=== PATIENT | female | born 1935 | race Caucasian/White ===

== ENCOUNTER 2018-04-28 14:06 | Inpatient (IN) | payer MEDICARE, OTHER ==
[2018-04-28] VITALS (7 sets, daily range): BP systolic 93–135; BP diastolic 56–117; PULSE 76–103; RESP 16–20; TEMP 97.2–99.6; O2SAT 94–99
[~2018-04-28] VITALS: Ht 152.4 cm; Wt 61.5 kg
[~2018-04-28 14:06] MED LIST: ACET1CAP18 PO; ALLO100T PO; ASPI81TA81 PO; LATA0.002 EACH EYE; METO25TA3 PO; NITR0.4S SL; SIMV40TA PO; TRIA37.5 PO
[2018-04-28] MEDS ORDERED: ULOR40TA PO (15:49)
[2018-04-28] MEDS ORDERED: ALPH0.1S EACH EYE (15:49)
[2018-04-28] MEDS ORDERED: BRIM.15%O EACH EYE (15:49)
[2018-04-28] MEDS ORDERED: TRAM50TA PO (15:49)
--- NOTE | 2018-04-28 16:37 | PD ---
HPI Chief Complaint: GI Complaint Time Seen by Provider: 16:32 Travel History International Travel<30 days: No Contact w/Intl Traveler<30days: No Traveled to known affect area: No History of Present Illness HPI This 82-year-old female is complaining of diarrhea and nausea. She had a hip replacement on February 03. Apparently she developed C. difficile afterwards. She has seen several different doctors and has been on Flagyl. She is not sure if she has been on any other medication. She has some crampy abdominal pain. She has been nauseated. She is here with her daughter says that she has not been eating well. Patient was apparently in fairly good health. She has no history of heart disease. She says she has had no appetite. She says she is having diarrhea every hour. PFSH Past Medical History Arthritis: Yes Cardiovascular Problems: Yes High Cholesterol: Yes Diminished Hearing: No Glaucoma: Yes Gout: Yes Hypertension: Yes Past Surgical History Other Surgery: No Social History Alcohol Use: No Tobacco Use: No Substance Use: No Allergies-Medications (Allergen,Severity, Reaction): Coded Allergies: penicillin G (Unverified Allergy, Severe, SWELLING, 04/28/18) Reported Meds & Prescriptions Reported Meds & Active Scripts Active Reported Uloric (Febuxostat) 40 Mg Tab 1 Mg PO DAILY Tramadol (Tramadol HCl) 50 Mg Tab 50 Mg PO Q12H PRN Alphagan P Opth Drops (Brimonidine Tartrate) 0.15% Soln 1 Drop EACH EYE TID Triamterene-Hydrochlorothiazide 37.5-25 Mg Tab 1 Tab PO DAILY Simvastatin 40 Mg Tab 40 Mg PO HS Metoprolol Tartrate 25 Mg Tab 25 Mg PO DAILY Latanoprost Opth Drops (Latanoprost) 0.005% Drops 1 Drop EACH EYE BID Refrigerate until opened. Aspir-81 (Aspirin) 81 Mg Tabdr 1 Tab PO DAILY Review of Systems Except as stated in HPI: all other systems reviewed are Neg General / Constitutional: No: Fever, Chills Eyes: No: Diploplia, Blurred Vision HENT: Positive: Lightheadedness, No: Headaches Cardiovascular: No: Chest Pain or Discomfort, Palpitations Respiratory: No: Cough, Shortness of Breath Gastrointestinal: Positive: Nausea, Vomiting, Diarrhea, Abdominal Pain Genitourinary: No: Urgency, Frequency Musculoskeletal: No: Myalgias, Arthralgias Skin: No Rash Neurologic: Positive: Weakness, Dizziness Psychiatric: No: Anxiety Hematologic/Lymphatic: Positive: Easy Bruising Physical Exam Narrative GENERAL: Frail elderly female. SKIN: Focused skin assessment warm/dry. Multiple areas of senile purpura HEAD: Atraumatic. Normocephalic. EYES: Pupils equal and round. No scleral icterus. No injection or drainage. ENT: No nasal bleeding or discharge. Mucous membranes dry NECK: Trachea midline. No JVD. CARDIOVASCULAR: Rapid regular rate and rhythm. No murmur appreciated. RESPIRATORY: No accessory muscle use. Clear to auscultation. Breath sounds equal bilaterally. GASTROINTESTINAL: Abdomen soft, non-tender, nondistended. Hepatic and splenic margins not palpable. MUSCULOSKELETAL: No obvious deformities. No clubbing. No cyanosis. No edema. NEUROLOGICAL: Awake and alert. No obvious cranial nerve deficits. Motor grossly within normal limits. Normal speech. PSYCHIATRIC: Appropriate mood and affect; insight and judgment normal. Data Data Last Documented VS Vital Signs Date Time Temp Pulse Resp B/P (MAP) Pulse Ox O2 Delivery O2 Flow Rate FiO2 04/28/18 16:59 76 20 117/67 (84) 94 Nasal Cannula 2.00 04/28/18 14:16 97.2 Orders Orders Complete Blood Count With Diff (04/28/18 15:41) Comprehensive Metabolic Panel (04/28/18 15:41) Urinalysis - C+S If Indicated (04/28/18 15:41) Iv Access Insert/Monitor (04/28/18 15:41) Oxygen Administration (04/28/18 15:41) Oximetry (04/28/18 15:41) Enteric Path (Stool) (04/28/18 16:33) C Diff Toxin Pcr (04/28/18 16:33) Sodium Chlorid 0.9% 500 Ml Inj (Ns 500 M (04/28/18 16:45) Sodium Chlor 0.9% 1000 Ml Inj (Ns 1000 M (04/28/18 16:45) Ed Poc Ultrasound (04/28/18 ) Labs Laboratory Tests Test 04/28/18 16:30 White Blood Count 46.7 TH/MM3 Red Blood Count 4.72 MIL/MM3 Hemoglobin 16.0 GM/DL Hematocrit 44.9 % Mean Corpuscular Volume 95.2 FL Mean Corpuscular Hemoglobin 33.9 PG Mean Corpuscular Hemoglobin Concent 35.6 % Red Cell Distribution Width 17.1 % Platelet Count 147 TH/MM3 Mean Platelet Volume 9.9 FL CBC Comment AUTO DIFF Differential Total Cells Counted 100 Neutrophils % (Manual) 50 % Band Neutrophils % 40 % Lymphocytes % 4 % Monocytes % 1 % Neutrophils # (Manual) 44.4 TH/MM3 Metamyelocytes 2 % Myelocytes 3 % Differential Comment FINAL DIFF MANUAL Platelet Estimate LOW Platelet Morphology Comment NORMAL Red Cell Morphology Comment NORMAL Blood Urea Nitrogen 83 MG/DL Creatinine 2.80 MG/DL Random Glucose 134 MG/DL Total Protein 6.9 GM/DL Albumin 2.3 GM/DL Calcium Level 8.0 MG/DL Alkaline Phosphatase 254 U/L Aspartate Amino Transf (AST/SGOT) 282 U/L Alanine Aminotransferase (ALT/SGPT) 107 U/L Total Bilirubin 0.5 MG/DL Sodium Level 130 MEQ/L Potassium Level 3.2 MEQ/L Chloride Level 98 MEQ/L Carbon Dioxide Level 14.5 MEQ/L Anion Gap 18 MEQ/L Estimat Glomerular Filtration Rate 16 ML/MIN [facility] Medical Decision Making Medical Screen Exam Complete: Yes Emergency Medical Condition: Yes Medical Record Reviewed: Yes Differential Diagnosis Differential includes enteritis, C. difficile, dehydration Narrative Course Sodium is 130 with potassium of 3.2. Chloride is 98 CO2 is 14.5. BUN is 83 with creatinine of 2.8. Her white count is markedly elevated at 46,000 with a shift. Cultures and intravenous antibiotics will be administered. Maxim Diaz MD April 28, 2018 16:37
[2018-04-28 16:40] LABS: HEMATOCRIT 44.9 % (35.0-46.0); MEAN CELL VOLUME 95.2 FL (80.0-100.0); MEAN CORPUSCULAR HEMOGLOBIN 33.9 PG (27.0-34.0); MEAN CORPUSCULAR HGB CONC 35.6 % (32.0-36.0); MEAN PLATELET VOLUME 9.9 FL (7.0-11.0); PLATELET COUNT 147 TH/MM3 (150-450); RED BLOOD COUNT 4.72 MIL/MM3 (4.00-5.30); RED CELL DISTRIBUTION WIDTH 17.1 % (11.6-17.2); WHITE BLOOD COUNT 46.7 TH/MM3 (4.0-11.0)
[2018-04-28] MEDS ORDERED: SODIUM CHLORID 0.9% 500 ML INJ 500 ML IV ONE (16:45)
[2018-04-28] MEDS ORDERED: SODIUM CHLOR 0.9% 1000 ML INJ 1,000 ML IV ONE (16:45)
[2018-04-28 16:48] LABS: CHLORIDE 98 MEQ/L (98-107); SODIUM (NA) 130 MEQ/L (136-145)
[2018-04-28 16:51] LABS: ALBUMIN 2.3 GM/DL (3.4-5.0); BICARBONATE 14.5 MEQ/L (21.0-32.0); GLUCOSE,RANDOM 134 MG/DL (74-106)
[2018-04-28 16:52] LABS: BLOOD UREA NITROGEN 83 MG/DL (7-18)
[2018-04-28 16:55] LABS: ALT (GPT) 107 U/L (10-53); AST (GOT) 282 U/L (15-37); GLOMERULAR FILTRATION RATE 16 ML/MIN (>89)
[2018-04-28 16:56] LABS: TOTAL BILIRUBIN ADULT 0.5 MG/DL (0.2-1.0); TOTAL PROTEIN 6.9 GM/DL (6.4-8.2)
[2018-04-28 16:57] LABS: ALKALINE PHOSPHATASE 254 U/L (45-117)
[2018-04-28 17:17] LABS: BANDS 40 % (0-6); LYMPHOCYTES 4 % (9-44); METAMYELOCYTES 2 % (0-1); MONOCYTES 1 % (0-8); MYELOCYTES 3 % (0-0); NEUTROPHIL # MANUAL DIFF 44.4 TH/MM3 (1.8-7.7); POLYS (SEG NEUTROPHILS) 50 % (16-70)
[2018-04-28] MEDS ORDERED: ACETAMINOPHEN 325 MG TAB PO PRN ×2 (18:00)
[2018-04-28] MEDS ORDERED: SODIUM CHLORIDE 0.9% FLUSH 10 ML FLUSH IV FLUSH PRN (18:00)
[2018-04-28] MEDS ORDERED: NALOXONE HCL 0.4 MG/ML AMP IV PUSH PRN (18:00)
[2018-04-28] MEDS ORDERED: METOCLOPRAMIDE HCL 10 MG/2 ML VIAL IV PUSH PRN (18:00)
[2018-04-28] MEDS ORDERED: PIPERACIL-TAZO 3.375 GM PREMIX 50 ML IV ONE (18:00)
[2018-04-28] MEDS ORDERED: VANCOMYCIN INJ 750 MG in SODIUM CHLOR 0.9% 250 ML INJ 250 ML IV ONE (18:15)
[2018-04-28] MEDS: SODIUM BICARBONATE 8.4% INJ 50 MEQ in SODIUM CHLOR 0.9% 1000 ML INJ 1,000 ML IV SCH (19:05)
[2018-04-28] MEDS: SODIUM CHLORIDE 0.9% FLUSH 10 ML FLUSH IV FLUSH SCH (22:30)
[2018-04-28] MEDS: VANCOMYCIN 500 MG VIAL (FOR ORAL USE ONLY) PO SCH (22:30)
[2018-04-28 22:59] LABS: BILIRUBIN, URINE NEG (NEG); BLOOD, URINE SMALL (NEG); GLUCOSE,URINE NEG (NEG); KETONE, URINE NEG (NEG); NITRITE,URINE POS (NEG); PH, URINE 5.5 (5.0-8.5); URINE COLOR YELLOW (YELLW/STRAW); URINE LEUKOCYTE ESTERASE MOD (NEG)
[2018-04-28 23:04] LABS: BACTERIA, URINE MANY /hpf
[2018-04-29] VITALS (8 sets, daily range): BP systolic 105–163; BP diastolic 61–107; PULSE 57–119; RESP 18–20; TEMP 96.4–99.1; O2SAT 97–100
[2018-04-29 06:44] LABS: AUTOMATED NEUTROPHIL # 36.2 TH/MM3 (1.8-7.7); BASOPHIL # 0.3 TH/MM3 (0-0.2); BASOPHIL % 0.7 % (0.0-2.0); EOSINOPHIL # 0.5 TH/MM3 (0-0.4); EOSINOPHIL % 1.1 % (0.0-4.0); HEMATOCRIT 46.2 % (35.0-46.0); HEMOGLOBIN 14.9 GM/DL (11.6-15.3); LYMPH % 8.1 % (9.0-44.0); LYMPHOCYTE # 3.3 TH/MM3 (1.0-4.8); MEAN CELL VOLUME 95.8 FL (80.0-100.0); MEAN CORPUSCULAR HEMOGLOBIN 30.9 PG (27.0-34.0); MEAN CORPUSCULAR HGB CONC 32.3 % (32.0-36.0); MEAN PLATELET VOLUME 10.2 FL (7.0-11.0); MONO % 1.4 % (0.0-8.0); MONOCYTE # 0.6 TH/MM3 (0-0.9); NEUT % 88.7 % (16.0-70.0); PLATELET COUNT 111 TH/MM3 (150-450); RED BLOOD COUNT 4.82 MIL/MM3 (4.00-5.30); RED CELL DISTRIBUTION WIDTH 16.8 % (11.6-17.2); WHITE BLOOD COUNT 40.9 TH/MM3 (4.0-11.0)
[2018-04-29 06:46] LABS: CHLORIDE 97 MEQ/L (98-107); SODIUM (NA) 133 MEQ/L (136-145)
[2018-04-29 06:50] LABS: CALCIUM 7.6 MG/DL (8.5-10.1)
[2018-04-29 06:51] LABS: ALBUMIN 2.2 GM/DL (3.4-5.0); BICARBONATE 19.7 MEQ/L (21.0-32.0); BLOOD UREA NITROGEN 76 MG/DL (7-18); GLUCOSE,RANDOM 71 MG/DL (74-106)
[2018-04-29 06:54] LABS: ALT (GPT) 101 U/L (10-53); AST (GOT) 235 U/L (15-37); GLOMERULAR FILTRATION RATE 22 ML/MIN (>89)
[2018-04-29 06:55] LABS: TOTAL BILIRUBIN ADULT 0.7 MG/DL (0.2-1.0); TOTAL PROTEIN 6.5 GM/DL (6.4-8.2)
[2018-04-29 06:56] LABS: ALKALINE PHOSPHATASE 277 U/L (45-117)
[2018-04-29 07:22] LABS: BANDS 34 % (0-6); LYMPHOCYTES 6 % (9-44); METAMYELOCYTES 4 % (0-1); MONOCYTES 1 % (0-8); MYELOCYTES 3 % (0-0); POLYS (SEG NEUTROPHILS) 51 % (16-70); PROMYELOCYTES 1 % (0-0)
[2018-04-29] MEDS: SODIUM CHLORIDE 0.9% FLUSH 10 ML FLUSH IV FLUSH SCH ×2 (09:00→22:30)
[2018-04-29] MEDS: VANCOMYCIN 500 MG VIAL (FOR ORAL USE ONLY) PO SCH ×4 (09:34→22:30)
[2018-04-29] MEDS ORDERED: POTASSIUM CHLORIDE 10 MEQ CONTROLLED RELEASE TAB PO ONE (11:15)
--- NOTE | 2018-04-29 12:19 | HHI.HP ---
[facility] Primary Care Physician Christian Conrad MD Admission Diagnosis ENTERITIS, DEHYDRATION Diagnoses: (1) C. difficile diarrhea (2) Metabolic acidosis with normal anion gap and bicarbonate losses (3) Transaminitis (4) Acute renal failure superimposed on stage 3 chronic kidney disease (5) Metabolic encephalopathy (6) UTI (urinary tract infection) (7) Hypokalemia Chief Complaint: Diarrhea Travel History International Travel<30 Days: No Contact w/Intl Traveler <30 Da: No Traveled to Known Affected Are: No History of Present Illness 82-year-old female for past medical history of hyperlipidemia, and a hip surgery February 03, 2018 also has been treated in the past for C. difficile was brought in by family member for evaluation of multiple episode of diarrhea as an increased weakness. Apparently, patient was found by family member in feces on the floor, however patient denied his events. She states over the past few weeks she has been quite weak and has had multiple episode of diarrhea since her hip surgery however denies any nausea or vomiting. She reported abdominal cramping and pain. She has no GI bleed. She denies any shortness of breath. Review of Systems Except as stated in HPI: all other systems reviewed are Neg Past Family Social History Past Medical History Arthritis: Yes Cardiovascular Problems: Yes High Cholesterol: Yes Glaucoma: Yes Gout: Yes Hypertension: Yes Past Surgical History Recent hip surgery Reported Medications Uloric (Febuxostat) 40 Mg Tab 1 Mg PO DAILY Tramadol (Tramadol HCl) 50 Mg Tab 50 Mg PO Q12H PRN Alphagan P Opth Drops (Brimonidine Tartrate) 0.15% Soln 1 Drop EACH EYE TID Triamterene-Hydrochlorothiazide 37.5-25 Mg Tab 1 Tab PO DAILY Simvastatin 40 Mg Tab 40 Mg PO HS Metoprolol Tartrate 25 Mg Tab 25 Mg PO DAILY Latanoprost Opth Drops (Latanoprost) 0.005% Drops 1 Drop EACH EYE BID Refrigerate until opened. Aspir-81 (Aspirin) 81 Mg Tabdr 1 Tab PO DAILY Allergies: Coded Allergies: penicillin G (Unverified Allergy, Severe, SWELLING, 04/28/18) Family History Due to patient advanced age, family history not relevant for this case Social History Alcohol Use: No Tobacco Use: No Substance Use: No Physical Exam Vital Signs Vital Signs Date Time Temp Pulse Resp B/P (MAP) Pulse Ox O2 Delivery O2 Flow Rate FiO2 04/29/18 07:50 97.3 119 20 141/78 (99) 100 04/29/18 00:00 99.1 76 18 163/75 (104) 99 04/28/18 20:00 88 16 135/85 (102) 98 Nasal Cannula 04/28/18 19:13 88 16 132/95 (107) 99 Nasal Cannula 2.00 04/28/18 17:56 99.6 96 18 110/117 (115) 96 04/28/18 17:56 82 20 119/86 (97) 98 Nasal Cannula 2.00 04/28/18 16:59 76 20 117/67 (84) 94 Nasal Cannula 2.00 04/28/18 16:11 95 04/28/18 15:45 103 20 93/56 (68) 98 04/28/18 14:16 97.2 98 17 105/58 (74) 94 Physical Exam GENERAL: This is a well-nourished, well-developed patient, in no apparent distress. SKIN: No rashes, ecchymoses or lesions. Cool and dry. Decubitus ulcer HEAD: Atraumatic. Normocephalic. No temporal or scalp tenderness. EYES: Pupils equal round and reactive. Extraocular motions intact. No scleral icterus. No injection or drainage. ENT: Nose without bleeding, purulent drainage or septal hematoma. Throat without erythema, tonsillar hypertrophy or exudate. Uvula midline. Airway patent. NECK: Trachea midline. No JVD or lymphadenopathy. Supple, nontender, no meningeal signs. CARDIOVASCULAR: Regular rate and rhythm without murmurs, gallops, or rubs. RESPIRATORY: Clear to auscultation. Breath sounds equal bilaterally. No wheezes , rales, or rhonchi. GASTROINTESTINAL: Abdomen soft, non-tender, nondistended. No hepato-splenomegaly , or palpable masses. No guarding. MUSCULOSKELETAL: Extremities without clubbing, cyanosis, or edema. No joint tenderness, effusion, or edema noted. No calf tenderness. Negative Homans sign bilaterally. NEUROLOGICAL: Awake and alert. Cranial nerves II through XII intact. Motor and sensory grossly within normal limits. Five out of 5 muscle strength in all muscle groups. Normal speech. Laboratory Laboratory Tests Test 04/28/18 16:30 04/28/18 21:30 04/29/18 04:48 04/29/18 05:55 White Blood Count 46.7 40.9 Red Blood Count 4.72 4.82 Hemoglobin 16.0 14.9 Hematocrit 44.9 46.2 Mean Corpuscular Volume 95.2 95.8 Mean Corpuscular Hemoglobin 33.9 30.9 Mean Corpuscular Hemoglobin Concent 35.6 32.3 Red Cell Distribution Width 17.1 16.8 Platelet Count 147 111 Mean Platelet Volume 9.9 10.2 CBC Comment AUTO DIFF AUTO DIFF Differential Total Cells Counted 100 99 Neutrophils % (Manual) 50 51 Band Neutrophils % 40 34 Lymphocytes % 4 6 Monocytes % 1 1 Neutrophils # (Manual) 44.4 38.0 Metamyelocytes 2 4 Myelocytes 3 3 Differential Comment FINAL DIFF MANUAL FINAL DIFF MANUAL Platelet Estimate LOW LOW Platelet Morphology Comment NORMAL NORMAL Red Cell Morphology Comment NORMAL Blood Urea Nitrogen 83 76 Creatinine 2.80 2.10 Random Glucose 134 71 Total Protein 6.9 6.5 Albumin 2.3 2.2 Calcium Level 8.0 7.6 Alkaline Phosphatase 254 277 Aspartate Amino Transf (AST/SGOT) 282 235 Alanine Aminotransferase (ALT/SGPT) 107 101 Total Bilirubin 0.5 0.7 Sodium Level 130 133 Potassium Level 3.2 3.0 Chloride Level 98 97 Carbon Dioxide Level 14.5 19.7 Anion Gap 18 16 Estimat Glomerular Filtration Rate 16 22 Urine Color YELLOW Urine Turbidity CLOUDY Urine pH 5.5 Urine Specific Sherman 1.020 Urine Protein 30 Urine Glucose (UA) NEG Urine Ketones NEG Urine Occult Blood SMALL Urine Nitrite POS Urine Bilirubin NEG Urine Urobilinogen 0.2 Urine Leukocyte Esterase MOD Urine RBC 10-14 Urine WBC 20-24 Urine Squamous Epithelial Cells 6-8 Urine Bacteria MANY Microscopic Urinalysis Comment CULTURE INDICATED Neutrophils (%) (Auto) 88.7 Lymphocytes (%) (Auto) 8.1 Monocytes (%) (Auto) 1.4 Eosinophils (%) (Auto) 1.1 Basophils (%) (Auto) 0.7 Neutrophils # (Auto) 36.2 Lymphocytes # (Auto) 3.3 Monocytes # (Auto) 0.6 Eosinophils # (Auto) 0.5 Basophils # (Auto) 0.3 Promyelocytes 1 Date/Time Source Procedure Growth Status 04/29/18 04:48 Stool Stool Pending Received 04/28/18 21:30 Urine Clean Catch Urine Culture Pending Received Result Diagram: 04/29/18 0555 04/29/18 0555 Septic Shock Reassessment Septic shock perfusion: reassessment completed Caprini VTE Risk Assessment Caprini VTE Risk Assessment: Mod/High Risk (score >= 2) Caprini Risk Assessment Model Point Value = 1 Point Value = 2 Point Value = 3 Point Value = 5 Age 41-60 Minor surgery BMI > 25 kg/m2 Swollen legs Varicose veins or History of unexplained or recurrent spontaneous Oral contraceptives or hormone replacement Sepsis (< 1 month) Serious lung disease, including pneumonia (< 1 month) Abnormal pulmonary function Acute myocardial infarction Congestive heart failure (< 1 month) History of inflammatory bowel disease Medical patient at bed rest Age 61-74 Arthroscopic surgery Major open surgery (> 45 min) Laparoscopic surgery (> 45 min) Malignancy Confined to bed (> 72 hours) Immobilizing plaster cast Central venous access Age >= 75 History of VTE Family history of VTE Factor V Leiden Prothrombin [id number] Lupus anticoagulant Anticardiolipin antibodies Elevated serum homocysteine Heparin-induced thrombocytopenia Other congenital or acquired thrombophilia Stroke (< 1 month) Elective arthroplasty Hip, pelvis, or leg fracture Acute spinal cord injury (< 1 month) Prophylaxis Regimen Total Risk Factor Score Risk Level Prophylaxis Regimen 0-1 Low Early ambulation 2 Moderate Order ONE of the following: *Sequential Compression Device (SCD) *Heparin 5000 units SQ BID 3-4 Higher Order ONE of the following medications: *Heparin 5000 units SQ TID *Enoxaparin/Lovenox 40 mg SQ daily (WT < 150 kg, CrCl > 30 mL/min) *Enoxaparin/Lovenox 30 mg SQ daily (WT < 150 kg, CrCl > 10-29 mL/min) *Enoxaparin/Lovenox 30 mg SQ BID (WT < 150 kg, CrCl > 30 mL/min) AND/OR *Sequential Compression Device (SCD) 5 or more Highest Order ONE of the following medications: *Heparin 5000 units SQ TID (Preferred with Epidurals) *Enoxaparin/Lovenox 40 mg SQ daily (WT < 150 kg, CrCl > 30 mL/min) *Enoxaparin/Lovenox 30 mg SQ daily (WT < 150 kg, CrCl > 10-29 mL/min) *Enoxaparin/Lovenox 30 mg SQ BID (WT < 150 kg, CrCl > 30 mL/min) AND *Sequential Compression Device (SCD) Assessment and Plan Problem List: (1) C. difficile diarrhea ICD Code: A04.72 - Enterocolitis due to Clostridium difficile, not specified as recurrent (2) Hypokalemia ICD Code: E87.6 - Hypokalemia (3) Metabolic acidosis with normal anion gap and bicarbonate losses ICD Code: E87.2 - Acidosis (4) Metabolic encephalopathy ICD Code: G93.41 - Metabolic encephalopathy (5) UTI (urinary tract infection) ICD Code: N39.0 - Urinary tract infection, site not specified (6) Transaminitis ICD Code: R74.0 - Nonspecific elevation of levels of transaminase and lactic acid dehydrogenase [LDH] (7) Acute renal failure superimposed on stage 3 chronic kidney disease ICD Code: N17.9 - Acute kidney failure, unspecified; N18.3 - Chronic kidney disease, stage 3 (moderate) Assessment and Plan 82-year-old female with C. difficile diarrhea until proven otherwise C. difficile PCR pending as well as stool for ova and parasite Will start vancomycin 125 mg p.o. 4 times daily Continue with IV fluid hydration Metabolic acidosis with normal anion gap and bicarbonate losses Continue sodium bicarb IV fluid and monitor electrolytes Metabolic encephalopathy Now improving Check CK Hypokalemia Replace electrolytes and monitor Urinary tract infection Status post Zosyn IV 1 in ED on April 28, 2018, we will start Rocephin IV pending urine culture Leukocytosis Secondary to above infectious processes Monitor CBC and continue treatment for C. difficile diarrhea and UTI Acute on chronic kidney disease stage III IV fluid hydration, monitor BUN and creatinine and avoid all nephrotoxic drug Transaminitis Will hold starting Check hepatitis profile Hyperlipidemia Secondary to transaminitis, will hold starting Hypertension Resume all medication Other chronic medical conditions Resume outpatient medications Decubitus ulcer Consult wound care Recent hip surgery Consult PT DVT prophylaxis: Bilateral SCDs GI prophylaxis: PPI Code Status Full code Discussed Condition With Patient, ED physician Physician Certification 2 Midnight Certification Type: Admission for Inpatient Services Order for Inpatient Services The services are ordered in accordance with Medicare regulations or non- Medicare payer requirements, as applicable. In the case of services not specified as inpatient-only, they are appropriately provided as inpatient services in accordance with the 2-midnight benchmark. Estimated LOS (days): 2 days is the estimated time the patient will need to remain in the hospital, assuming treatment plan goals are met and no additional complications. Post-Hospital Plan: Not yet determined Sandip Baker MD April 29, 2018 12:19
[2018-04-29] MEDS: METOPROLOL TARTRATE 25 MG TAB PO SCH (13:20)
[2018-04-29] MEDS: BRIMONIDINE TARTRATE 0.15% OPHT SOLN 5 ML BTL EACH EYE SCH ×2 (13:21→18:12)
[2018-04-29] MEDS: cefTRIAXone INJ 1,000 MG in SODIUM CHLORIDE 0.9% INJ 100 ML IV SCH (13:41)
--- NOTE | 2018-04-29 16:23 | PD.WCN.NOT ---
Wound Consult Description: Wound consult ordered by for wound management Communicated with: Lia DEGROOT MARITZA, Recommendation: 1. Encourage patient to reposition every 2 hours for comfort and offloading. 2. Apply heel protector boots when in bed. 3. Apply skin prep to bilateral heels/arms/legs BID 4. Apply Calazime and Antifungal cream 50/50 mix to groin/labia and inner buttocks BID or after loose stool. 5. Communicate with case management for possible placement to assisted living facility. Additional Information: Patient was seen today by remote mortgage underwriter and Lia BELL for wound management.Patient alert and oriented x4 .Patient only complaint at this time is of general weakness.Patient states she was able to ambulate with two handed assistive device a week ago but has had diarrhea for a week and is now wheelchair bound.Upon visual assessment of skin integrity patient noted to have multiple hematomas/bruises in various healing stages to bilateral upper and lower extremities.Skin integrity is very friable with poor skin turgor.Patient was able to reposition to left side with assistance of remote mortgage underwriter .Ocular Pathologist was able to visualize entire sacral/inner buttocks/groin and labia area.Patient has mixed moisture/fungal rash from labia/groin area spreading up inner buttocks.Areas cleansed with normal saline and Calazime cream mixed with antifungal cream applied .Patient has stage 2 pressure injury to lower back( ~1inch proximal of sacral area) in which presents as device related pressure injury.Patient stated that she is transferred at home with the use of gait belt.Pressure injury measures 5.3cm x ~6.0cm x 0.1cm.Wound base is 50% intact non blanchable tissue and 50% moist pink/red non granular tissue .Wound edges are well defined and irregular in shape.Scant serous exudate noted with out odor.Wound cleansed with normal saline and pat dry Calazime cream applied in thick layer and patient was reposition to right side for comfort and offloading.Bilateral calcaneus soft and reddened blanchable at this time.Cavilon skin prep applied to bilateral upper and lower extremities.Heels floated on pillow till heel protector boots available.Patient had no further questions or concerns upon writers departure. Shashi Hyde [facility] April 29, 2018 16:23
[2018-04-29] MEDS: SODIUM BICARBONATE 8.4% INJ 50 MEQ in SODIUM CHLOR 0.9% 1000 ML INJ 1,000 ML IV SCH (18:12)
[2018-04-29] MEDS: LATANOPROST 0.005% OPHT SOLN 2.5 ML BTL EACH EYE SCH (22:35)
[2018-04-30] VITALS (7 sets, daily range): BP systolic 88–136; BP diastolic 52–75; PULSE 64–85; RESP 18–20; TEMP 96.5–98.5; O2SAT 94–100
[2018-04-30 06:46] LABS: ALBUMIN 1.9 GM/DL (3.4-5.0); ALKALINE PHOSPHATASE 230 U/L (45-117); ALT (GPT) 75 U/L (10-53); AST (GOT) 144 U/L (15-37); BICARBONATE 22.1 MEQ/L (21.0-32.0); BLOOD UREA NITROGEN 53 MG/DL (7-18); CALCIUM 7.5 MG/DL (8.5-10.1); CHLORIDE 104 MEQ/L (98-107); GLOMERULAR FILTRATION RATE 47 ML/MIN (>89); GLUCOSE,RANDOM 78 MG/DL (74-106); SODIUM (NA) 137 MEQ/L (136-145); TOTAL BILIRUBIN ADULT 0.5 MG/DL (0.2-1.0); TOTAL PROTEIN 5.5 GM/DL (6.4-8.2)
[2018-04-30 06:51] LABS: BANDS 8 % (0-6); LYMPHOCYTES 8 % (9-44); METAMYELOCYTES 7 % (0-1); MONOCYTES 4 % (0-8); POLYS (SEG NEUTROPHILS) 73 % (16-70)
[2018-04-30 06:52] LABS: HYPERSEGMENTED POLYS 1+ (NORMAL)
[2018-04-30] MEDS ORDERED: POTASSIUM CHLORIDE 20 MEQ CONTROLLED RELEASE TAB PO ONE (07:15)
[2018-04-30 07:53] LABS: HEMATOCRIT 39.5 % (35.0-46.0); HEMOGLOBIN 13.5 GM/DL (11.6-15.3); MEAN CELL VOLUME 95.7 FL (80.0-100.0); MEAN CORPUSCULAR HEMOGLOBIN 32.7 PG (27.0-34.0); MEAN CORPUSCULAR HGB CONC 34.2 % (32.0-36.0); NEUTROPHIL # MANUAL DIFF 23.2 TH/MM3 (1.8-7.7); PLATELET COUNT 92 TH/MM3 (150-450); RED BLOOD COUNT 4.13 MIL/MM3 (4.00-5.30); RED CELL DISTRIBUTION WIDTH 17.1 % (11.6-17.2); WHITE BLOOD COUNT 26.4 TH/MM3 (4.0-11.0)
[2018-04-30 07:54] LABS: MEAN PLATELET VOLUME 9.9 FL (7.0-11.0)
[2018-04-30] MEDS: VANCOMYCIN 500 MG VIAL (FOR ORAL USE ONLY) PO SCH ×4 (09:26→21:50)
[2018-04-30] MEDS: METOPROLOL TARTRATE 25 MG TAB PO SCH (09:26)
[2018-04-30] MEDS: BRIMONIDINE TARTRATE 0.15% OPHT SOLN 5 ML BTL EACH EYE SCH ×3 (09:35→18:13)
[2018-04-30] MEDS: SODIUM CHLORIDE 0.9% FLUSH 10 ML FLUSH IV FLUSH SCH ×2 (09:35→21:50)
[2018-04-30] MEDS: 1/2 NS + KCL 20 MEQ INJ 1,000 ML IV SCH ×2 (09:38→21:50)
--- NOTE | 2018-04-30 09:55 | HHI.PR ---
Subjective Remarks Follow-up C. difficile diarrhea/UTI April 30, 2018-patient seen and examined, continued to have multiple episode of loose stools. Afebrile. Denies any nausea vomiting. May 01, 2018-patient seen and examined, still with some loose stool however reports some improvement. Now with with cough. Currently afebrile Objective Vitals Vital Signs Date Time Temp Pulse Resp B/P (MAP) Pulse Ox O2 Delivery O2 Flow Rate FiO2 04/30/18 07:50 96.5 81 20 128/75 (92) 99 04/30/18 04:25 98.5 85 18 117/74 (88) 100 04/29/18 21:00 75 04/29/18 21:00 75 04/29/18 19:24 98.6 77 20 106/65 (79) 97 04/29/18 15:25 96.4 57 20 105/61 (76) 100 04/29/18 15:02 79 04/29/18 12:00 106 155/86 (109) 04/29/18 11:50 97.6 84 20 156/107 (123) 100 I/O 04/29/18 04/29/18 04/29/18 04/30/18 04/30/18 04/30/18 07:00 15:00 23:00 07:00 15:00 23:00 Intake Total 60 ml 100 ml 1755 ml 700 ml Balance 60 ml 100 ml 1755 ml 700 ml Intake Oral 60 ml 705 ml IV Total 100 ml 1050 ml 700 ml # Voids 2 4 3 # Bowel Movements 2 8 5 Result Diagram: 04/30/18 0603 04/30/18 0603 Imaging Last Impressions Chest X-Ray 05/01/18 0000 Signed Impressions: CONCLUSION: 1. 1.7 cm mass projected over the right lung of concern for tumor. Chest CT is recommended for further evaluation. 2. Mid inspiratory study with crowding of the lung vasculature. Objective Remarks GENERAL: NAD SKIN: Warm and dry. HEAD: Normocephalic. EYES: No scleral icterus. No injection or drainage. NECK: Supple, trachea midline. No JVD or lymphadenopathy. CARDIOVASCULAR: Regular rate and rhythm without murmurs, gallops, or rubs. RESPIRATORY: Breath sounds equal bilaterally. No accessory muscle use. GASTROINTESTINAL: Abdomen soft, non-tender, nondistended. MUSCULOSKELETAL: No cyanosis, or edema. Decubitus ulcer BACK: Nontender without obvious deformity. No CVA tenderness. A/P Problem List: (1) Sepsis ICD Code: A41.9 - Sepsis, unspecified organism (2) C. difficile diarrhea ICD Code: A04.72 - Enterocolitis due to Clostridium difficile, not specified as recurrent (3) Metabolic acidosis with normal anion gap and bicarbonate losses ICD Code: E87.2 - Acidosis (4) Transaminitis ICD Code: R74.0 - Nonspecific elevation of levels of transaminase and lactic acid dehydrogenase [LDH] (5) Acute renal failure superimposed on stage 3 chronic kidney disease ICD Code: N17.9 - Acute kidney failure, unspecified; N18.3 - Chronic kidney disease, stage 3 (moderate) (6) Metabolic encephalopathy ICD Code: G93.41 - Metabolic encephalopathy (7) UTI (urinary tract infection) ICD Code: N39.0 - Urinary tract infection, site not specified (8) Hypokalemia ICD Code: E87.6 - Hypokalemia Assessment and Plan 82-year-old female with Sepsis: d/t C-diff diarrhea, UTI Currently on IV Rocephin, PO Vancomycin C. difficile diarrhea C. difficile PCR positive and stool for ova and parasite negative Continue vancomycin 125 mg p.o. 4 times daily and add Questran Continue with IV fluid hydration Metabolic acidosis with normal anion gap and bicarbonate losses d/c sodium bicarb IV fluid and monitor electrolytes Metabolic encephalopathy Now improved CK within normal Hypokalemia Replace electrolytes and monitor Urinary tract infection Urine culture negative to therefore will discontinue Rocephin IV Leukocytosis-improving Secondary to above infectious processes Monitor CBC and continue treatment for C. difficile diarrhea and UTI Acute on chronic kidney disease stage III Continue IV fluid hydration with normal saline with K, monitor BUN and creatinine and avoid all nephrotoxic drug Transaminitis Continue to hold statin Hepatitis profile negative Hyperlipidemia Secondary to transaminitis, continue to hold starting Hypertension Continue all medication Other chronic medical conditions Continue outpatient medications Decubitus ulcer Wound care nurse input appreciated Recent hip surgery PT to treat and eval 1.7 cm mass right lung chest x-ray Check CT chest DVT prophylaxis: Bilateral SCDs GI prophylaxis: PPI Sandip Baker MD April 30, 2018 09:54
[2018-04-30] MEDS: LATANOPROST 0.005% OPHT SOLN 2.5 ML BTL EACH EYE SCH ×2 (10:44→21:50)
[2018-04-30] MEDS: cefTRIAXone INJ 1,000 MG in SODIUM CHLORIDE 0.9% INJ 100 ML IV SCH (14:36)
[2018-04-30] MEDS: ONDANSETRON HCL 4 MG/2 ML VIAL IVP PRN (21:50)
[2018-05-01] VITALS: BP 136/64; PULSE 72; RESP 20; TEMP 98.4; O2SAT 96
[2018-05-01 04:00] VITALS: BP 116/54; PULSE 75; RESP 20; TEMP 95.6; O2SAT 96
[2018-05-01] MEDS: 1/2 NS + KCL 20 MEQ INJ 1,000 ML IV SCH ×3 (05:07→21:50)
[2018-05-01 06:07] LABS: HEMATOCRIT 37.3 % (35.0-46.0); HEMOGLOBIN 12.8 GM/DL (11.6-15.3); MEAN CELL VOLUME 96.7 FL (80.0-100.0); MEAN CORPUSCULAR HEMOGLOBIN 33.3 PG (27.0-34.0); MEAN CORPUSCULAR HGB CONC 34.4 % (32.0-36.0); PLATELET COUNT 88 TH/MM3 (150-450); RED BLOOD COUNT 3.85 MIL/MM3 (4.00-5.30); RED CELL DISTRIBUTION WIDTH 17.6 % (11.6-17.2); WHITE BLOOD COUNT 25.2 TH/MM3 (4.0-11.0)
[2018-05-01 06:40] LABS: BANDS 7 % (0-6); CORRECTED NUCLEATED RBC 2 /100 WBC (0-0); LYMPHOCYTES 14 % (9-44); METAMYELOCYTES 10 % (0-1); MONOCYTES 6 % (0-8); MYELOCYTES 2 % (0-0); NEUTROPHIL # MANUAL DIFF 19.9 TH/MM3 (1.8-7.7); NUCLEATED RED BLOOD CELL 2 (0-0); OVALOCYTES 1+ (NORMAL); POLYS (SEG NEUTROPHILS) 60 % (16-70); TEARDROP RBCS 1+ (NORMAL)
[2018-05-01 07:31] LABS: BICARBONATE 20.9 MEQ/L (21.0-32.0); CALCIUM 7.2 MG/DL (8.5-10.1)
[2018-05-01 07:44] LABS: CALCIUM-PROTEIN CORRECTED 8.1 MG/DL (8.5-10.1); CREATININE 0.72 MG/DL (0.50-1.00); TOTAL PROTEIN 5.4 GM/DL (6.4-8.2)
[2018-05-01 08:00] VITALS: BP 121/57; PULSE 73; RESP 18; TEMP 98; O2SAT 98
[2018-05-01] MEDS: SODIUM CHLORIDE 0.9% FLUSH 10 ML FLUSH IV FLUSH SCH ×2 (09:00→21:49)
--- NOTE | 2018-05-01 09:19 | RADRPT ---
EXAM DATE: 05/01/2018 9:14 AM EDT AGE/SEX: 82 years / Female INDICATIONS: Short of breath, chest pain. CLINICAL DATA: This is the patient's initial encounter. Patient reports that signs and symptoms have been present for 2 days and indicates a pain score of 1/10. MEDICAL/SURGICAL HISTORY: Hypertension. Hypercholesterolemia. None. COMPARISON: No prior [place] exams available for comparison. FINDINGS: A single AP erect portable view the chest was obtained. The study is mid inspiratory with crowding of the lung vasculature. There is a rounded 1.7 cm soft tissue mass projected over the right mid latera l chest. The left lung is clear. The heart size is within normal limits. Atherosclerotic calcificatio ns are present in the aorta. The bony thorax is intact with degenerative change in both shoulders. Mu ltiple overlying electrocardiogram leads are present. CONCLUSION: 1. 1.7 cm mass projected over the right lung of concern for tumor. Chest CT is recommended for furth er evaluation. 2. Mid inspiratory study with crowding of the lung vasculature. Electronically signed by: Adrien Mac MD 05/01/2018 9:17 AM EDT
[2018-05-01] MEDS: METOPROLOL TARTRATE 25 MG TAB PO SCH (10:30)
[2018-05-01] MEDS: VANCOMYCIN 500 MG VIAL (FOR ORAL USE ONLY) PO SCH ×4 (10:31→21:49)
[2018-05-01] MEDS: BRIMONIDINE TARTRATE 0.15% OPHT SOLN 5 ML BTL EACH EYE SCH ×3 (10:36→18:56)
[2018-05-01] MEDS ORDERED: GLUCAGON 1 MG/ML VIAL OTHER PRN (10:45)
[2018-05-01] MEDS ORDERED: DEXTROSE 50% IN WATER 50 ML VIAL(D50) IV PUSH PRN (10:45)
[2018-05-01] MEDS ORDERED: CHOLESTYRAMINE LIGHT 4 GM PACKAGE PO PRN (11:00)
[2018-05-01] MEDS: LATANOPROST 0.005% OPHT SOLN 2.5 ML BTL EACH EYE SCH ×2 (11:00→21:49)
[2018-05-01 12:00] VITALS: BP 118/58; PULSE 74; RESP 18; TEMP 98.1; O2SAT 98
--- NOTE | 2018-05-01 12:27 | RADRPT ---
EXAM DATE: 05/01/2018 12:00 PM EDT AGE/SEX: 82 years / Female INDICATIONS: Abnormal chest x-ray. Evaluate for mass. CLINICAL DATA: This is the patient's initial encounter. Patient reports that signs and symptoms have been present for 1 day and indicates a pain score of 0/10. MEDICAL/SURGICAL HISTORY: Hypertension. Renal insufficiency. None. RADIATION DOSE: 11.63 CTDI (mGy) COMPARISON: [facility], CHEST SINGLE AP, 05/01/2018. . TECHNIQUE: Multiple contiguous axial images were obtained through the chest without contrast. Image s were obtained in suspended respiration using multiple row detector helical technique. Using automa susan exposure control and adjustment of the mA and/or kV according to patient size, radiation dose was kept as low as reasonably achievable to obtain optimal diagnostic quality images. FINDINGS: Lungs: There is a 1.6 cm mass in the right upper lobe. This corresponds to the mass seen on the ches t x-ray. There is increased interstitial markings and suspected atelectasis at the lung bases. Mediastinum: There is good visualization of the great vessels of the middle mediastinum. No evidenc e of mediastinal or hilar adenopathy/mass. Pleurae: There is a minimal right pleural effusion. Axillae: Unremarkable. Bony Structures: There is sclerosis at the medial aspect of the right clavicle likely from prior fra cturing. No focal bone lesions are seen. Miscellaneous: The examination was extended to include the upper abdomen, and both adrenal glands ar e normal in size and configuration. There is a mild hiatal hernia. There is ascites seen in the upper abdomen. Visualized portions of the colon appear thickened. The upper aspect of the hepatic and sple [place] flexures can be seen. CONCLUSION: 1. 1.6 cm right upper lung mass. This could be further evaluated with a PET FDG study at some point. It is amenable to biopsy if needed. 2. Thickening of the patient has portions of the colon. This is incompletely evaluated on this CT of the chest. 3. Moderate ascites seen in the upper abdomen. 4. Mild hiatal hernia. Electronically signed by: Arsh Maldonado MD 05/01/2018 12:26 PM EDT
[2018-05-01] MEDS: LACTOBACILLUS ACIDOPHILUS TAB PO SCH ×2 (15:37→18:53)
[2018-05-01 16:00] VITALS: BP 120/60; PULSE 76; RESP 18; TEMP 98; O2SAT 98
[2018-05-01 20:00] VITALS: BP 116/55; PULSE 67; PULSE 80; RESP 20; TEMP 97; O2SAT 98
[2018-05-02] VITALS (7 sets, daily range): BP systolic 94–120; BP diastolic 57–73; PULSE 67–90; RESP 18–20; TEMP 96.5–99.1; O2SAT 95–99
[2018-05-02] MEDS: BENZONATATE 100 MG CAP PO PRN (05:49)
[2018-05-02 08:16] LABS: AUTOMATED NEUTROPHIL # 29.8 TH/MM3 (1.8-7.7); BASOPHIL # 0.1 TH/MM3 (0-0.2); BASOPHIL % 0.2 % (0.0-2.0); EOSINOPHIL # 0.4 TH/MM3 (0-0.4); EOSINOPHIL % 1.1 % (0.0-4.0); HEMOGLOBIN 13.4 GM/DL (11.6-15.3); LYMPH % 14.7 % (9.0-44.0); LYMPHOCYTE # 5.4 TH/MM3 (1.0-4.8); MEAN CELL VOLUME 96.8 FL (80.0-100.0); MEAN CORPUSCULAR HEMOGLOBIN 32.4 PG (27.0-34.0); MEAN CORPUSCULAR HGB CONC 33.5 % (32.0-36.0); MEAN PLATELET VOLUME 10.5 FL (7.0-11.0); MONO % 2.9 % (0.0-8.0); MONOCYTE # 1.1 TH/MM3 (0-0.9); NEUT % 81.1 % (16.0-70.0); PLATELET COUNT 116 TH/MM3 (150-450); RED BLOOD COUNT 4.13 MIL/MM3 (4.00-5.30); RED CELL DISTRIBUTION WIDTH 17.2 % (11.6-17.2); WHITE BLOOD COUNT 36.8 TH/MM3 (4.0-11.0)
[2018-05-02 08:45] LABS: BICARBONATE 21.2 MEQ/L (21.0-32.0); CALCIUM 7.4 MG/DL (8.5-10.1); CREATININE 0.57 MG/DL (0.50-1.00)
[2018-05-02 09:01] LABS: CALCIUM-PROTEIN CORRECTED 8.1 MG/DL (8.5-10.1); TOTAL PROTEIN 5.8 GM/DL (6.4-8.2)
[2018-05-02] MEDS ORDERED: FUROSEMIDE 40 MG/4 ML VIAL IV PUSH ONE (10:00)
[2018-05-02] MEDS: METOPROLOL TARTRATE 25 MG TAB PO SCH (10:24)
[2018-05-02] MEDS: CALCIUM CARBONATE 1.25 GM (CA 500 MG) TAB PO SCH ×2 (10:24→20:30)
[2018-05-02] MEDS: SODIUM CHLORIDE 0.9% FLUSH 10 ML FLUSH IV FLUSH SCH ×2 (10:24→20:34)
[2018-05-02] MEDS: LACTOBACILLUS ACIDOPHILUS TAB PO SCH ×3 (10:24→17:44)
[2018-05-02] MEDS: LATANOPROST 0.005% OPHT SOLN 2.5 ML BTL EACH EYE SCH ×2 (10:24→20:34)
[2018-05-02 10:25] LABS: BANDS 12 % (0-6); LYMPHOCYTES 8 % (9-44); METAMYELOCYTES 4 % (0-1); MONOCYTES 3 % (0-8); MYELOCYTES 5 % (0-0); NEUTROPHIL # MANUAL DIFF 32.8 TH/MM3 (1.8-7.7); POLYS (SEG NEUTROPHILS) 68 % (16-70)
[2018-05-02] MEDS: BRIMONIDINE TARTRATE 0.15% OPHT SOLN 5 ML BTL EACH EYE SCH ×3 (10:25→17:44)
[2018-05-02] MEDS: VANCOMYCIN 500 MG VIAL (FOR ORAL USE ONLY) PO SCH ×4 (10:25→20:30)
[2018-05-02 10:27] LABS: OVALOCYTES 1+ (NORMAL); ROULEAUX PRESENT (NORMAL)
[2018-05-02 10:44] LABS: ALBUMIN 1.9 GM/DL (3.4-5.0)
[2018-05-02 10:48] LABS: TOTAL BILIRUBIN ADULT 0.5 MG/DL (0.2-1.0)
[2018-05-02 10:49] LABS: TOTAL PROTEIN 5.8 GM/DL (6.4-8.2)
--- NOTE | 2018-05-02 10:59 | HHI.PR ---
Subjective Remarks Patient seen and evaluated in follow-up for C. difficile with sepsis. Patient still quite tachycardic and her white cell count has gone up. Tolerating oral vancomycin without difficulty. Frequency of bowel movements has decreased from 14-17 and 24 hours. Patient has increased weight gain 4 kg. She is increasingly short of breath and has increased work of breathing at rest. Patient has a right-sided lung mass which is new to her and I did discuss the findings with her Objective Vitals Vital Signs Date Time Temp Pulse Resp B/P (MAP) Pulse Ox O2 Delivery O2 Flow Rate FiO2 05/02/18 07:50 97.1 73 20 120/67 (84) 99 05/02/18 00:00 97.1 74 20 112/60 (77) 98 05/01/18 20:00 80 05/01/18 20:00 97.0 67 20 116/55 (75) 98 05/01/18 16:00 98.0 76 18 120/60 (80) 98 05/01/18 12:00 98.1 74 18 118/58 (78) 98 I/O 05/01/18 05/01/18 05/01/18 05/02/18 05/02/18 05/02/18 07:00 15:00 23:00 07:00 15:00 23:00 Intake Total 1204 ml 1600 ml 1420 ml Output Total 3 ml Balance 1204 ml 1597 ml 1420 ml Intake Oral 120 ml 600 ml 420 ml IV Total 1084 ml 1000 ml 1000 ml Output Stool Total 3 ml # Voids 1 4 6 # Bowel Movements 1 7 Result Diagram: 05/02/18 0700 05/02/18 0700 Imaging Last Impressions Chest X-Ray 05/01/18 0000 Signed Impressions: CONCLUSION: 1. 1.7 cm mass projected over the right lung of concern for tumor. Chest CT is recommended for further evaluation. 2. Mid inspiratory study with crowding of the lung vasculature. Chest CT 05/01/18 0000 Signed Impressions: CONCLUSION: 1. 1.6 cm right upper lung mass. This could be further evaluated with a PET FD G study at some point. It is amenable to biopsy if needed. 2. Thickening of the patient has portions of the colon. This is incompletely e valuated on this CT of the chest. 3. Moderate ascites seen in the upper abdomen. 4. Mild hiatal hernia. Objective Remarks Skin with multiple skin tears and bruises in various stages of healing GENERAL: This is a well-nourished, well-developed patient, in no apparent distress. CARDIOVASCULAR: Sinus tachycardia with 5 out of 6 systolic murmur no gallops or rubs appreciated RESPIRATORY: Decreased breath sounds bilaterally due to poor effort, increased work of breathing with accessory muscle use GASTROINTESTINAL: Abdomen soft, non-tender, nondistended. Normal active bowel sounds MUSCULOSKELETAL: Extremities without clubbing, cyanosis, or edema. NEURO: Alert & Oriented x4 to person, place, time, situation. Moves all ext x4 A/P Problem List: (1) Sepsis ICD Code: A41.9 - Sepsis, unspecified organism Plan: Secondary to C. difficile Continue with vancomycin Urine cultures are negative (2) C. difficile diarrhea ICD Code: A04.72 - Enterocolitis due to Clostridium difficile, not specified as recurrent Plan: Stools improved Continue with oral vancomycin due to severity of infection and follow stool output Patient on Questran (3) Metabolic acidosis with normal anion gap and bicarbonate losses ICD Code: E87.2 - Acidosis Plan: Resolved after bicarbonate drip Secondary to sepsis (4) Transaminitis ICD Code: R74.0 - Nonspecific elevation of levels of transaminase and lactic acid dehydrogenase [LDH] Plan: Somewhat improved Home statin on hold (5) Metabolic encephalopathy ICD Code: G93.41 - Metabolic encephalopathy Plan: Resolved after treatment of infection (6) Acute kidney injury ICD Code: N17.9 - Acute kidney failure, unspecified Plan: Resolved after IV fluids (7) Skin tear Plan: Patient also with decubitus ulcer wound care nurse evaluation appreciated Continue with supportive care (8) Lung mass ICD Code: R91.8 - Other nonspecific abnormal finding of lung field Plan: Continue with further evaluation Pulmonary consult pending Likely for outpatient workup when she has recovered from her sepsis Discussed at length with patient (9) Shortness of breath ICD Code: R06.02 - Shortness of breath Plan: Likely multifactorial due to volume overload History of aortic valve stenosis and overall poor clinical status Follow-up echocardiogram IV Lasix Continue with medical management Discharge Planning Likely for intermediate facility at discharge Vida Vega MD May 02, 2018 10:59
[2018-05-02 11:06] LABS: DIRECT BILIRUBIN ADULT 0.1 MG/DL (0.0-0.2); INDIRECT BILIRUBIN 0.4 MG/DL (0.0-0.8)
--- NOTE | 2018-05-02 20:45 | MB ---
cc: Dino Coleman MD, Arjun D MD Chudasama, Prady M MD DATE: 05/02/2018 REQUESTING PHYSICIAN: Dr. Baker REASON FOR CONSULTATION: Evaluation for lung nodules. HISTORY OF PRESENT ILLNESS: Ms. Nicole is a pleasant 82-year-old female with a history of recent hip surgery, hyperlipidemia, and she has a history of C difficile colitis in the past. The patient had multiple episodes of diarrhea, was feeling weakness and she was brought to the hospital. She was found to be C. difficile positive again. Her CBC showed significant leukocytosis up to 46,000. Repeat CBC: WBC count 36.8, hemoglobin 14.1, hematocrit 40, MCV 96, platelet count 116. Sodium 136, potassium 4.6, chloride 103, CO2 of 21, BUN 18, creatinine 0.53. She had a CT scan of the chest done which showed that she has a 1.6 cm mass in the right upper lobe, thickening of portion of the colon and moderate ascites. PAST MEDICAL HISTORY: Significant with history of C diff colitis, hip surgery, hypertension, hypercholesteremia. CURRENT MEDICATIONS: 1. Tessalon 200 mg 3 times a day. 2. Lactinex 1 tablet 3 times a day. 3. Albuterol Atrovent nebulizer treatment 4. Cholestyramine 4 grams twice a day. 5. Metoprolol 25 mg twice a day. 6. Vancomycin 125 mg p.o. 4 times a day. 7. Reglan 5 mg p.r.n. ALLERGIES: SHE IS ALLERGIC TO PENICILLIN. SOCIAL HISTORY: She has no history of smoking or alcohol use. She lives alone. She has a microbiology technologist at home. She is here with her. FAMILY HISTORY: She has 1 son who lives in [place]. REVIEW OF SYSTEMS: She has not been able to ambulate much recently. Has lost some weight. No DVT or pulmonary embolism. No seizures, stroke or epilepsy. PHYSICAL EXAMINATION: GENERAL: Frail elderly female, not in any acute distress. VITAL SIGNS: Blood pressure 105/70, heart rate 70, respirations 20, temperature 96.5. HEENT: Pupils are equal and reactive to light. Oral mucosa and nasal mucosa are normal. NECK: Supple. JVP not raised. CHEST: Equal bilaterally, no rhonchi. CARDIOVASCULAR: S1, S2 normal. ABDOMEN: Benign. EXTREMITIES: No edema. IMPRESSION: 1. A 1.6 cm right upper lobe nodule. Malignancy needs to be ruled out. 2. Leukocytosis. 3. Clostridium difficile colitis. 4. Hypertension. PLAN: I have discussed with the patient that malignancy needs to be ruled out and I asked her if she would like to take the treatment in case it is malignant. She is not sure she wanted to have the treatment; however, she definitely wants to find out what this mass is. We will schedule her for CT-guided lung biopsy. I explained the procedure and the complications, including complication of anesthesia, pneumothorax requiring chest tube, bleeding complication, injury to the blood vessel, nerves, lungs, arrhythmia, hypoxia and possibility of nondiagnostic biopsy which she understands well. Further treatment will depend on the course in the hospital. Thank you, Dr. Baker, for this consult. MD CROW Trammell/ , 08:03 PM , 08:44 PM
[2018-05-02 20:49] LABS: INTERNATIONAL NORMALIZED RATIO 1.2 RATIO; PROTHROMBIN TIME - PATIENT 11.8 SEC (9.8-11.6)
[2018-05-03] VITALS (8 sets, daily range): BP systolic 112–138; BP diastolic 58–70; PULSE 70–83; RESP 18–20; TEMP 96.1–97.4; O2SAT 95–100
[2018-05-03 08:14] LABS: AUTOMATED NEUTROPHIL # 28.2 TH/MM3 (1.8-7.7); BASOPHIL # 0.1 TH/MM3 (0-0.2); BASOPHIL % 0.2 % (0.0-2.0); EOSINOPHIL # 0.4 TH/MM3 (0-0.4); EOSINOPHIL % 1.2 % (0.0-4.0); HEMATOCRIT 37.4 % (35.0-46.0); HEMOGLOBIN 12.8 GM/DL (11.6-15.3); LYMPH % 13.8 % (9.0-44.0); LYMPHOCYTE # 4.9 TH/MM3 (1.0-4.8); MEAN CELL VOLUME 97.6 FL (80.0-100.0); MEAN CORPUSCULAR HEMOGLOBIN 33.4 PG (27.0-34.0); MEAN CORPUSCULAR HGB CONC 34.3 % (32.0-36.0); MEAN PLATELET VOLUME 10.4 FL (7.0-11.0); MONO % 5.4 % (0.0-8.0); MONOCYTE # 1.9 TH/MM3 (0-0.9); NEUT % 79.4 % (16.0-70.0); PLATELET COUNT 123 TH/MM3 (150-450); RED BLOOD COUNT 3.83 MIL/MM3 (4.00-5.30); RED CELL DISTRIBUTION WIDTH 16.6 % (11.6-17.2); WHITE BLOOD COUNT 35.5 TH/MM3 (4.0-11.0)
[2018-05-03] MEDS: METOPROLOL TARTRATE 25 MG TAB PO SCH (08:24)
[2018-05-03] MEDS: LACTOBACILLUS ACIDOPHILUS TAB PO SCH ×3 (08:25→17:11)
[2018-05-03] MEDS: CALCIUM CARBONATE 1.25 GM (CA 500 MG) TAB PO SCH ×2 (08:25→20:55)
[2018-05-03] MEDS: VANCOMYCIN 500 MG VIAL (FOR ORAL USE ONLY) PO SCH ×4 (08:27→20:54)
[2018-05-03] MEDS: SODIUM CHLORIDE 0.9% FLUSH 10 ML FLUSH IV FLUSH SCH ×2 (08:28→20:55)
[2018-05-03] MEDS: BRIMONIDINE TARTRATE 0.15% OPHT SOLN 5 ML BTL EACH EYE SCH ×3 (08:28→17:13)
[2018-05-03] MEDS: LATANOPROST 0.005% OPHT SOLN 2.5 ML BTL EACH EYE SCH ×2 (08:29→20:55)
[2018-05-03 08:38] LABS: ALBUMIN 1.8 GM/DL (3.4-5.0); BICARBONATE 22.2 MEQ/L (21.0-32.0); CALCIUM 7.4 MG/DL (8.5-10.1); CALCIUM-PROTEIN CORRECTED 8.2 MG/DL (8.5-10.1); CREATININE 0.52 MG/DL (0.50-1.00); TOTAL BILIRUBIN ADULT 0.6 MG/DL (0.2-1.0); TOTAL PROTEIN 5.6 GM/DL (6.4-8.2)
[2018-05-03 08:45] LABS: BANDS 18 % (0-6); LYMPHOCYTES 6 % (9-44); METAMYELOCYTES 2 % (0-1); MONOCYTES 8 % (0-8); MYELOCYTES 7 % (0-0); NEUTROPHIL # MANUAL DIFF 29.8 TH/MM3 (1.8-7.7); POLYS (SEG NEUTROPHILS) 57 % (16-70)
[2018-05-03 08:46] LABS: OVALOCYTES 1+ (NORMAL); ROULEAUX PRESENT (NORMAL)
--- NOTE | 2018-05-03 09:12 | HHI.PR ---
Subjective Remarks Patient seen and evaluated today in follow-up for C. difficile colitis which is still symptomatic with 13 episodes of diarrhea document overnight although the patient says it was not that many.. Right lung mass which will need a biopsy in a.m. Patient feels a bit stronger Objective Vitals Vital Signs Date Time Temp Pulse Resp B/P (MAP) Pulse Ox O2 Delivery O2 Flow Rate FiO2 05/03/18 04:00 96.7 83 18 115/60 (78) 96 05/02/18 21:23 97.4 67 18 94/57 (69) 95 05/02/18 19:50 98 Nasal Cannula 2.00 05/02/18 18:00 21 05/02/18 15:50 96.5 78 20 105/73 (84) 97 05/02/18 11:00 99.1 69 20 119/68 (85) 97 I/O 05/02/18 05/02/18 05/02/18 05/03/18 05/03/18 05/03/18 07:00 15:00 23:00 07:00 15:00 23:00 Intake Total 1420 ml 270 ml Balance 1420 ml 270 ml Intake Oral 420 ml 270 ml IV Total 1000 ml # Voids 6 3 2 # Bowel Movements 7 9 4 Result Diagram: 05/03/18 0630 05/03/18 0630 Objective Remarks Skin with multiple skin tears and bruises in various stages of healing GENERAL: This is a well-nourished, well-developed patient, in no apparent distress. CARDIOVASCULAR: Sinus tachycardia with 5 out of 6 systolic murmur no gallops or rubs appreciated RESPIRATORY: Decreased breath sounds bilaterally due to poor effort, increased work of breathing with accessory muscle use GASTROINTESTINAL: Abdomen soft, non-tender, nondistended. Normal active bowel sounds MUSCULOSKELETAL: Extremities without clubbing, cyanosis, or edema. NEURO: Alert & Oriented x4 to person, place, time, situation. Moves all ext x4 A/P Problem List: (1) Sepsis ICD Code: A41.9 - Sepsis, unspecified organism Plan: Secondary to C. difficile Continue with vancomycin Urine cultures are negative (2) C. difficile diarrhea ICD Code: A04.72 - Enterocolitis due to Clostridium difficile, not specified as recurrent Plan: Stool output documented at 13 although the patient says it was not that many Continue with oral vancomycin due to severity of infection and follow stool output Continue Questran twice daily (3) Metabolic acidosis with normal anion gap and bicarbonate losses ICD Code: E87.2 - Acidosis Plan: Resolved after bicarbonate drip Secondary to sepsis (4) Transaminitis ICD Code: R74.0 - Nonspecific elevation of levels of transaminase and lactic acid dehydrogenase [LDH] Plan: Somewhat improved Home statin on hold (5) Metabolic encephalopathy ICD Code: G93.41 - Metabolic encephalopathy Plan: Resolved after treatment of infection (6) Acute kidney injury ICD Code: N17.9 - Acute kidney failure, unspecified Plan: Resolved after IV fluids (7) Skin tear Plan: Patient also with decubitus ulcer wound care nurse evaluation appreciated Continue with supportive care (8) Lung mass ICD Code: R91.8 - Other nonspecific abnormal finding of lung field Plan: Continue with further evaluation Pulmonary consult appreciated, biopsy in a.m. if stable Likely for outpatient workup after biopsy and when she has recovered from her sepsis Discussed at length with patient (9) Shortness of breath ICD Code: R06.02 - Shortness of breath Plan: Likely multifactorial due to volume overload History of aortic valve stenosis and overall poor clinical status Follow-up echocardiogram IV Lasix Continue with medical management Discharge Planning dc telem heparin q8h Likely for [facility] facility at discharge Vida Vega MD May 03, 2018 09:12
--- NOTE | 2018-05-03 11:27 | ECHRPT ---
Indication: Shortness of breath CONCLUSIONS The left ventricular systolic function is normal with an estimated ejection fraction in the range of 55-60%. Wall thickness is normal. Normal left ventricular size. Mild mitral valve regurgitation. Mild aortic valve regurgitation. Mild aortic valve stenosis. Aortic valve mean gradient is 17 mmHg. There is mild tricuspid valve regurgitation. The estimated pulmonary arterial pressure is 33 mmHg. BP: / HR: Rhythm: Sinus MEASUREMENTS (Male / Female) Normal Values Technical Quality:Good 2D ECHO LV Diastolic Diameter PLAX 3.6 cm 4.2 - 5.9 / 3.9 - 5.3 cm LV Systolic Diameter PLAX 2.8 cm IVS Diastolic Thickness 0.9 cm 0.6 - 1.0 / 0.6 - 0.9 cm LVPW Diastolic Thickness 0.9 cm 0.6 - 1.0 / 0.6 - 0.9 cm LV Relative Wall Thickness 0.5 LVOT Diameter 1.7 cm LA Systolic Diameter LX 3.9 cm 3.0 - 4.0 / 2.7 - 3.8 cm M-MODE Aortic Root Diameter MM 2.7 cm AV Cusp Separation MM 1.5 cm DOPPLER AV Peak Velocity 253.4 cm/s AV Peak Gradient 25.7 mmHg AV Mean Gradient 17.0 mmHg AV Velocity Time Integral 56.1 cm AI Peak Velocity 361.3 cm/s AI Peak Gradient 52.2 mmHg AI Pressure Half Time 805.3 ms LVOT Peak Velocity 91.3 cm/s LVOT Peak Gradient 3.3 mmHg AV Area Cont Eq pk 0.8 cm MR Peak Velocity 378.0 cm/s MR Peak Gradient 57.2 mmHg Mitral E Point Velocity 53.8 cm/s Mitral A Point Velocity 79.0 cm/s Mitral E to A Ratio 0.7 LV E' Lateral Velocity 11.6 cm/s Mitral E to LV E' Lateral Ratio 4.6 LV E' Septal Velocity 5.1 cm/s Mitral E to LV E' Septal Ratio 10.6 TR Peak Velocity 240.0 cm/s TR Peak Gradient 23.0 mmHg Right Atrial Pressure 10.0 mmHg Pulmonary Artery Systolic Pressu 33.0 mmHg Right Ventricular Systolic Press 33.0 mmHg PV Peak Velocity 82.8 cm/s PV Peak Gradient 2.7 mmHg FINDINGS LEFT VENTRICLE The left ventricular systolic function is normal with an estimated ejection fraction in the range of 55-60%. Wall thickness is normal. Normal left ventricular size. RIGHT VENTRICLE Normal right ventricular size and systolic function. LEFT ATRIUM The left atrial size is normal. RIGHT ATRIUM The right atrial size is normal. ATRIAL SEPTUM Normal atrial septal thickness without atrial level shunting by limited color doppler interrogation. AORTA The aortic root and proximal ascending aorta are normal in size on limited imaging. MITRAL VALVE Mild mitral valve regurgitation. AORTIC VALVE Mild aortic valve regurgitation. Mild aortic valve stenosis. Aortic valve mean gradient is 17 mmHg. TRICUSPID VALVE There is mild tricuspid valve regurgitation. The estimated pulmonary arterial pressure is 33 mmHg. PULMONARY VALVE No pulmonary valve regurgitation or stenosis. VESSELS The inferior vena cava is normal in size. PERICARDIUM No pericardial effusion. Carlos Betancur MD, FACC, FSCAI (Electronically Signed) Final Date:03 May 2018 11:26
[2018-05-03] MEDS: HEPARIN SODIUM - SQ 10,000 UNITS/ML VIAL SQ SCH ×2 (12:11→20:55)
--- NOTE | 2018-05-03 19:44 | HHI.PR ---
Subjective Remarks 82 YOWF with C.diff inf, RUL nodule Feels weak Mild sob Still has diarrhoea Wants to have lung bx done Objective Vital Signs Vital Signs Date Time Temp Pulse Resp B/P (MAP) Pulse Ox O2 Delivery O2 Flow Rate FiO2 05/03/18 15:00 96.2 76 20 121/65 (83) 95 05/03/18 11:50 96.9 70 20 138/70 (92) 98 05/03/18 11:03 97 Nasal Cannula 2.00 05/03/18 10:57 97 Nasal Cannula 2.00 05/03/18 07:50 96.1 78 20 120/67 (84) 99 05/03/18 04:00 96.7 83 18 115/60 (78) 96 05/02/18 21:23 97.4 67 18 94/57 (69) 95 05/02/18 19:50 98 Nasal Cannula 2.00 I/O 05/02/18 05/02/18 05/02/18 05/03/18 05/03/18 05/03/18 07:00 15:00 23:00 07:00 15:00 23:00 Intake Total 1420 ml 270 ml 360 ml Balance 1420 ml 270 ml 360 ml Intake Oral 420 ml 270 ml 360 ml IV Total 1000 ml # Voids 6 3 2 2 # Bowel Movements 7 9 4 9 Result Diagram: 05/03/18 0630 05/03/18 0630 Objective Remarks GENERAL: Frail elderly female, NAD, weak SKIN: Warm and dry. HEAD: Normocephalic. EYES: No scleral icterus. No injection or drainage. NECK: Supple, trachea midline. No JVD or lymphadenopathy. CARDIOVASCULAR: Regular rate and rhythm without murmurs, gallops, or rubs. RESPIRATORY: Breath sounds equal bilaterally. No accessory muscle use. GASTROINTESTINAL: Abdomen soft, non-tender, nondistended. MUSCULOSKELETAL: No cyanosis, or edema. BACK: Nontender without obvious deformity. No CVA tenderness. A/P Assessment and Plan 1. A 1.6 cm right upper lobe nodule. Malignancy needs to be ruled out. 2. Leukocytosis. 3. Clostridium difficile colitis. 4. Hypertension. PLAN: CT Guided RUL lung bx PO Vancomycin Monitor CBC Dino Coleman MD May 03, 2018 19:44
[2018-05-03] MEDS: RESP: ALBUTEROL 2.5 MG/IPRATROPIUM 0.5 MG NEB (PRN) NEB (19:56)
[2018-05-03] MEDS: CHOLESTYRAMINE LIGHT 4 GM PACKAGE PO SCH (20:55)
[2018-05-04] VITALS (9 sets, daily range): BP systolic 109–139; BP diastolic 53–85; PULSE 66–98; RESP 18–20; TEMP 96.9–97.6; O2SAT 92–99
[2018-05-04] MEDS: BENZONATATE 100 MG CAP PO PRN (00:17)
[2018-05-04] MEDS: RESP: ALBUTEROL 2.5 MG/IPRATROPIUM 0.5 MG NEB (PRN) NEB ×3 (04:09→17:16)
[2018-05-04] MEDS ORDERED: guaiFENesin SOLUTION 200 MG/10 ML CUP PO ONE (04:15)
[2018-05-04 04:58] LABS: HEMATOCRIT 39.2 % (35.0-46.0); HEMOGLOBIN 13.3 GM/DL (11.6-15.3); MEAN CELL VOLUME 95.9 FL (80.0-100.0); MEAN CORPUSCULAR HEMOGLOBIN 32.7 PG (27.0-34.0); MEAN CORPUSCULAR HGB CONC 34.1 % (32.0-36.0); MEAN PLATELET VOLUME 9.2 FL (7.0-11.0); PLATELET COUNT 145 TH/MM3 (150-450); RED BLOOD COUNT 4.08 MIL/MM3 (4.00-5.30); RED CELL DISTRIBUTION WIDTH 17.3 % (11.6-17.2); WHITE BLOOD COUNT 45.3 TH/MM3 (4.0-11.0)
[2018-05-04 05:12] LABS: INTERNATIONAL NORMALIZED RATIO 1.1 RATIO; PROTHROMBIN TIME - PATIENT 11.4 SEC (9.8-11.6)
[2018-05-04 05:15] LABS: BANDS 14 % (0-6); CORRECTED NUCLEATED RBC 3 /100 WBC (0-0); LYMPHOCYTES 9 % (9-44); METAMYELOCYTES 3 % (0-1); MONOCYTES 4 % (0-8); NEUTROPHIL # MANUAL DIFF 39.4 TH/MM3 (1.8-7.7); NUCLEATED RED BLOOD CELL 3 (0-0); POLYS (SEG NEUTROPHILS) 70 % (16-70)
[2018-05-04] MEDS: HEPARIN SODIUM - SQ 10,000 UNITS/ML VIAL SQ SCH ×3 (06:00→23:39)
[2018-05-04] MEDS: LATANOPROST 0.005% OPHT SOLN 2.5 ML BTL EACH EYE SCH ×2 (08:56→23:40)
[2018-05-04] MEDS: BRIMONIDINE TARTRATE 0.15% OPHT SOLN 5 ML BTL EACH EYE SCH ×3 (08:56→17:20)
[2018-05-04] MEDS: LACTOBACILLUS ACIDOPHILUS TAB PO SCH ×3 (08:57→17:20)
[2018-05-04] MEDS: CHOLESTYRAMINE LIGHT 4 GM PACKAGE PO SCH ×2 (08:57→23:40)
[2018-05-04] MEDS: VANCOMYCIN 500 MG VIAL (FOR ORAL USE ONLY) PO SCH (08:57)
[2018-05-04] MEDS: METOPROLOL TARTRATE 25 MG TAB PO SCH (08:57)
[2018-05-04] MEDS: CALCIUM CARBONATE 1.25 GM (CA 500 MG) TAB PO SCH ×2 (08:57→23:40)
[2018-05-04] MEDS: SODIUM CHLORIDE 0.9% FLUSH 10 ML FLUSH IV FLUSH SCH ×2 (08:57→21:00)
--- NOTE | 2018-05-04 09:43 | PD.CONS ---
History of Present Illness Service Infectious disease Consult Requested By Dr Vida Vega Reason for Consult C diff, worsening leucocytosis Primary Care Physician Christian Conrad MD Diagnoses: (1) Sepsis (2) C. difficile diarrhea (3) Lung mass Past Family Social History Allergies: Coded Allergies: penicillin G (Unverified Allergy, Severe, SWELLING, 04/28/18) Physical Exam Vital Signs Vital Signs Date Time Temp Pulse Resp B/P (MAP) Pulse Ox O2 Delivery O2 Flow Rate FiO2 05/04/18 08:12 99 Nasal Cannula 2.00 05/04/18 08:00 97.1 98 19 139/63 (88) 98 05/04/18 00:00 97.6 94 18 121/55 (77) 98 05/03/18 20:00 97.4 76 20 112/58 (76) 100 05/03/18 19:56 98 Nasal Cannula 2.00 05/03/18 15:00 96.2 76 20 121/65 (83) 95 05/03/18 11:50 96.9 70 20 138/70 (92) 98 05/03/18 11:03 97 Nasal Cannula 2.00 05/03/18 10:57 97 Nasal Cannula 2.00 Physical Exam GENERAL: This is a chronically ill elderly patient, in no apparent distress. SKIN: No rashes, ecchymoses or lesions. Cool and dry. HEAD: Atraumatic. Normocephalic. No temporal or scalp tenderness. EYES: Pupils equal round and reactive. Extraocular motions intact. No scleral icterus. No injection or drainage. ENT: Nose without bleeding, purulent drainage or septal hematoma. Throat without erythema, tonsillar hypertrophy or exudate. Uvula midline. Airway patent. NECK: Trachea midline. No JVD or lymphadenopathy. Supple, nontender, no meningeal signs. CARDIOVASCULAR: Regular rate and rhythm without murmurs, gallops, or rubs. RESPIRATORY: Clear to auscultation. Breath sounds equal bilaterally. No wheezes , rales, or rhonchi. GASTROINTESTINAL: Abdomen soft, non-tender, nondistended. No hepato-splenomegaly , or palpable masses. No guarding. MUSCULOSKELETAL: Extremities without clubbing, cyanosis, or edema. No joint tenderness, effusion, or edema noted. No calf tenderness. Negative Homans sign bilaterally. NEUROLOGICAL: Awake and alert. Cranial nerves II through XII intact. Motor and sensory grossly within normal limits. Five out of 5 muscle strength in all muscle groups. Normal speech. Laboratory Laboratory Tests Test 05/04/18 04:43 White Blood Count 45.3 Red Blood Count 4.08 Hemoglobin 13.3 Hematocrit 39.2 Mean Corpuscular Volume 95.9 Mean Corpuscular Hemoglobin 32.7 Mean Corpuscular Hemoglobin Concent 34.1 Red Cell Distribution Width 17.3 Platelet Count 145 Mean Platelet Volume 9.2 CBC Comment AUTO DIFF Differential Total Cells Counted 100 Neutrophils % (Manual) 70 Band Neutrophils % 14 Lymphocytes % 9 Monocytes % 4 Neutrophils # (Manual) 39.4 Metamyelocytes 3 Nucleated Red Blood Cells 3 Differential Comment FINAL DIFF MANUAL Platelet Estimate NORMAL Platelet Morphology Comment ENLARGED Prothrombin Time 11.4 Prothromb Time International Ratio 1.1 Date/Time Source Procedure Growth Status 04/29/18 04:48 Stool Stool - Final NO ENTERIC PATHOGENS DETECTED BY PCR... Complete 04/28/18 21:30 Urine Clean Catch Urine Culture - Final 50-100,000 CFU/ML MIXED LESLY... Complete Result Diagram: 05/04/18 0443 05/03/18 0630 Assessment and Plan Problem List: (1) Sepsis ICD Codes: A41.9 - Sepsis, unspecified organism Status: Acute Plan: Patient's sepsis due to severe C diff- avoid other antibiotics at this time Check Blood cultures (2) C. difficile diarrhea ICD Codes: A04.72 - Enterocolitis due to Clostridium difficile, not specified as recurrent Plan: Worsening leucocytosis Stop PO Vancomycin Start Dificid 200 mg po bid due to failing treatment with Vancomycin (3) Lung mass ICD Codes: R91.8 - Other nonspecific abnormal finding of lung field Plan: Pulmonary following patient (4) Skin candidiasis ICD Codes: B37.2 - Candidiasis of skin and nail Plan: Add Fluconazole with close monitoring of LFTs Nystatin cream Dena Oshea MD May 04, 2018 09:43
[2018-05-04] MEDS: FIDAXOMICIN 200 MG TAB PO SCH ×2 (10:41→23:40)
[2018-05-04] MEDS: FLUCONAZOLE 100 MG TAB PO SCH (10:42)
--- NOTE | 2018-05-04 11:42 | HHI.PR ---
Subjective Remarks Patient seen and evaluated in follow-up for C. difficile colitis. Leukocytosis increased today to 45,000. Care plan discussed with infectious disease recommend addition of Dificid. I also discussed this patient with the radiology team recommended outpatient PET scan follow-up for cold lung mass. If cold on PET scan there would be no need for further workup. Patient is a high risk for procedures given her acute infectious process and age Objective Vitals Vital Signs Date Time Temp Pulse Resp B/P (MAP) Pulse Ox O2 Delivery O2 Flow Rate FiO2 05/04/18 08:12 99 Nasal Cannula 2.00 05/04/18 08:00 97.1 98 19 139/63 (88) 98 05/04/18 00:00 97.6 94 18 121/55 (77) 98 05/03/18 20:00 97.4 76 20 112/58 (76) 100 05/03/18 19:56 98 Nasal Cannula 2.00 05/03/18 15:00 96.2 76 20 121/65 (83) 95 05/03/18 11:50 96.9 70 20 138/70 (92) 98 I/O 05/03/18 05/03/18 05/03/18 05/04/18 05/04/18 05/04/18 07:00 15:00 23:00 07:00 15:00 23:00 Intake Total 360 ml 0 ml Balance 360 ml 0 ml Intake Oral 360 ml 0 ml # Voids 2 2 # Bowel Movements 4 9 Result Diagram: 05/04/18 0443 05/03/18 0630 Objective Remarks Skin with multiple skin tears and bruises in various stages of healing GENERAL: This is a well-nourished, well-developed patient, in no apparent distress. CARDIOVASCULAR: Sinus tachycardia with 5 out of 6 systolic murmur no gallops or rubs appreciated RESPIRATORY: Decreased breath sounds bilaterally due to poor effort, increased work of breathing with accessory muscle use GASTROINTESTINAL: Abdomen soft, non-tender, nondistended. Normal active bowel sounds MUSCULOSKELETAL: Extremities without clubbing, cyanosis, or edema. NEURO: Alert & Oriented x4 to person, place, time, situation. Moves all ext x4 A/P Problem List: (1) Sepsis ICD Code: A41.9 - Sepsis, unspecified organism Status: Acute Plan: Secondary to C. difficile Continue with p.o. vancomycin and Dificid ID team following Urine cultures are negative (2) C. difficile diarrhea ICD Code: A04.72 - Enterocolitis due to Clostridium difficile, not specified as recurrent Plan: Repeat CT abdomen and pelvis pending, add Dificid ID consult appreciated Continue with oral vancomycin due to severity of infection and follow stool output Continue Questran twice daily (3) Metabolic acidosis with normal anion gap and bicarbonate losses ICD Code: E87.2 - Acidosis Plan: Resolved after bicarbonate drip Secondary to sepsis (4) Transaminitis ICD Code: R74.0 - Nonspecific elevation of levels of transaminase and lactic acid dehydrogenase [LDH] Plan: Somewhat improved Home statin on hold (5) Metabolic encephalopathy ICD Code: G93.41 - Metabolic encephalopathy Plan: Resolved after treatment of infection (6) Acute kidney injury ICD Code: N17.9 - Acute kidney failure, unspecified Plan: Resolved after IV fluids (7) Skin tear Plan: Patient also with decubitus ulcer wound care nurse evaluation appreciated Continue with supportive care (8) Lung mass ICD Code: R91.8 - Other nonspecific abnormal finding of lung field Plan: Continue with further evaluation Pulmonary consult appreciated, follow-up with PET scan as an outpatient Consider outpatient biopsy if hot on imaging outpatient workup when she has recovered from her sepsis Discussed at length with patient (9) Shortness of breath ICD Code: R06.02 - Shortness of breath Plan: Improved after Lasix Likely multifactorial due to volume overload History of aortic valve stenosis and overall poor clinical status Echocardiogram shows mildly elevated PA pressures with normal systolic function, , no severe aortic stenosis Continue with medical management Discharge Planning dc telem heparin q8h Likely for snf facility at discharge Vida Vega MD May 04, 2018 11:42
[2018-05-04] MEDS ORDERED: DIATRIZOATE MEGLUM/DIATRIZOATE SOD 9 ML CUP PO ONE (13:30)
--- NOTE | 2018-05-04 21:32 | HHI.PR ---
Subjective Remarks ALERT NO DISTRESS Objective Vital Signs Date Time Temp Pulse Resp B/P (MAP) Pulse Ox O2 Delivery O2 Flow Rate FiO2 05/04/18 17:17 92 21 05/04/18 16:00 96.9 66 19 110/60 (77) 96 05/04/18 15:36 96 21 05/04/18 12:00 97.0 68 19 111/85 (94) 97 05/04/18 08:12 99 Nasal Cannula 2.00 05/04/18 08:00 97.1 98 19 139/63 (88) 98 05/04/18 00:00 97.6 94 18 121/55 (77) 98 I/O 05/03/18 05/03/18 05/03/18 05/04/18 05/04/18 05/04/18 07:00 15:00 23:00 07:00 15:00 23:00 Intake Total 360 ml 0 ml 946 ml Output Total 500 ml Balance 360 ml 0 ml 446 ml Intake Oral 360 ml 0 ml 946 ml Output Urine Total 500 ml # Voids 2 2 # Bowel Movements 4 9 3 Result Diagram: 05/04/18 0443 05/03/18 0630 Objective Remarks GENERAL: SKIN: Warm and dry. HEAD: Atraumatic. Normocephalic. EYES: Pupils equal and round. No scleral icterus. No injection or drainage. ENT: No nasal bleeding or discharge. Mucous membranes pink and moist. NECK: Trachea midline. No JVD. CARDIOVASCULAR: Regular rate and rhythm. RESPIRATORY: No accessory muscle use. Clear to auscultation. Breath sounds equal bilaterally. GASTROINTESTINAL: Abdomen soft, non-tender, nondistended. Hepatic and splenic margins not palpable. MUSCULOSKELETAL: Extremities without clubbing, cyanosis, or edema. No obvious deformities. NEUROLOGICAL: Awake and alert. No obvious cranial nerve deficits. Motor grossly within normal limits. Five out of 5 muscle strength in the arms and legs. Normal speech. PSYCHIATRIC: Appropriate mood and affect; insight and judgment normal. Assessment and Plan Assessment and Plan IMP LUNG NODULE CDIFF COLITIS PLAN LUNG BX Maurice Richards MD May 04, 2018 21:32
[2018-05-04] MEDS: NYSTATIN 100,000 UNIT/GM CREAM 15 GM TOPICAL SCH (23:40)
[2018-05-05] VITALS (7 sets, daily range): BP systolic 107–149; BP diastolic 58–67; PULSE 69–94; RESP 19–20; TEMP 97.1–98.7; O2SAT 94–97
--- NOTE | 2018-05-05 05:31 | RADRPT ---
EXAM DATE: 05/04/2018 11:22 PM EDT AGE/SEX: 82 years / Female INDICATIONS: Enteritis. CLINICAL DATA: This is the patient's initial encounter. Patient reports that signs and symptoms have been present for 4 - 6 days and indicates a pain score of 5/10. MEDICAL/SURGICAL HISTORY: Hypertension. Renal insufficiency. None. RADIATION DOSE: 11.01 CTDI (mGy) COMPARISON: No prior [facility] exams available for comparison. TECHNIQUE: Multiple contiguous axial images were obtained through the abdomen. Images were obtained using multiple row detector helical technique. Using dose reduction techniques, radiation dose was ke pt as low as reasonably achievable to obtain optimal diagnostic quality images. Lack of IV contrast l imits the diagnosis for certain organ pathology. FINDINGS: Lower Lungs: Scattered infiltrates in both lung bases, right greater than left. Liver: The liver has a homogeneous density without space-occupying lesion. There is no dilation of th e biliary tree. There is a small amount of free fluid around the liver. Spleen: Homogeneous density without enlargement. Small amount of free fluid around the spleen. Pancreas: Unremarkable without mass or calcification. Kidneys: Normal in size and shape. No evidence of mass or hydronephrosis. Adrenal Glands: Unremarkable. Aorta: The aorta and proximal iliac vessels are grossly unremarkable without aneurysmal dilation. Bowel/Mesentery: The small bowel loops are grossly unremarkable. There is diffuse abnormal thickenin g involving the entire wall of the colon from the cecum all the way to the rectum. There is nonspecif ic edema in the mesenteric fat adjacent to the colon. There is no mechanical obstruction. There is no free air in the abdomen. Abdominal Wall: There is edema in the abdominal wall. Retroperitoneum: No evidence of adenopathy in the retrocrural, para-aortic, or deep pelvic regions. Bladder: Contours are smooth. Reproductive Organs: No abnormal masses or calcifications seen. Inguinal: The inguinal region is unremarkable without evidence of adenopathy. Bony Structures: Primary degenerative changes. Right hip prosthesis. CONCLUSION: 1. There is diffuse abnormal symmetric thickening involving the entire wall of the colon from the ce cum all the way to the rectum suggestive of a nonspecific diffuse colitis. No mechanical obstruction is demonstrated. 2. Small amount of free fluid around the liver and spleen in the upper abdomen. 3. Nonspecific edema in the mesenteric fat and throughout the body wall. This suggests anasarca. 4. Scattered infiltrates in both lung bases, right greater than left. Electronically signed by: Everett Holland MD 05/05/2018 5:30 AM EDT
[2018-05-05] MEDS: HEPARIN SODIUM - SQ 10,000 UNITS/ML VIAL SQ SCH ×3 (05:38→21:40)
[2018-05-05] MEDS: BENZONATATE 100 MG CAP PO PRN ×3 (05:48→22:50)
[2018-05-05 06:42] LABS: AUTOMATED NEUTROPHIL # 21.9 TH/MM3 (1.8-7.7); BASOPHIL # 0.1 TH/MM3 (0-0.2); BASOPHIL % 0.2 % (0.0-2.0); EOSINOPHIL # 0.2 TH/MM3 (0-0.4); EOSINOPHIL % 0.6 % (0.0-4.0); HEMATOCRIT 34.9 % (35.0-46.0); HEMOGLOBIN 12.1 GM/DL (11.6-15.3); LYMPHOCYTE # 3.8 TH/MM3 (1.0-4.8); MEAN CELL VOLUME 96.5 FL (80.0-100.0); MEAN CORPUSCULAR HEMOGLOBIN 33.4 PG (27.0-34.0); MEAN CORPUSCULAR HGB CONC 34.6 % (32.0-36.0); MONO % 5.4 % (0.0-8.0); MONOCYTE # 1.5 TH/MM3 (0-0.9); NEUT % 79.8 % (16.0-70.0); PLATELET COUNT 165 TH/MM3 (150-450); RED BLOOD COUNT 3.62 MIL/MM3 (4.00-5.30); RED CELL DISTRIBUTION WIDTH 17.8 % (11.6-17.2); WHITE BLOOD COUNT 27.5 TH/MM3 (4.0-11.0)
[2018-05-05 06:47] LABS: CHLORIDE 105 MEQ/L (98-107); SODIUM (NA) 135 MEQ/L (136-145)
[2018-05-05 06:51] LABS: CALCIUM 7.5 MG/DL (8.5-10.1)
[2018-05-05 06:52] LABS: BICARBONATE 21.8 MEQ/L (21.0-32.0)
[2018-05-05 06:54] LABS: ALBUMIN 1.7 GM/DL (3.4-5.0); BLOOD UREA NITROGEN 15 MG/DL (7-18); GLUCOSE,RANDOM 92 MG/DL (74-106)
[2018-05-05 06:55] LABS: ALT (GPT) 44 U/L (10-53); AST (GOT) 46 U/L (15-37)
[2018-05-05 06:56] LABS: CREATININE 0.47 MG/DL (0.50-1.00); GLOMERULAR FILTRATION RATE 127 ML/MIN (>89)
[2018-05-05 06:57] LABS: TOTAL BILIRUBIN ADULT 0.5 MG/DL (0.2-1.0); TOTAL PROTEIN 5.7 GM/DL (6.4-8.2)
[2018-05-05 06:58] LABS: ALKALINE PHOSPHATASE 228 U/L (45-117)
[2018-05-05 07:36] LABS: BANDS 23 % (0-6); LYMPHOCYTES 8 % (9-44); METAMYELOCYTES 4 % (0-1); MONOCYTES 2 % (0-8); MYELOCYTES 4 % (0-0); NEUTROPHIL # MANUAL DIFF 24.8 TH/MM3 (1.8-7.7); POLYS (SEG NEUTROPHILS) 59 % (16-70); TOXIC GRANULATION 1+ (NORMAL)
[2018-05-05] MEDS: METOPROLOL TARTRATE 25 MG TAB PO SCH (09:00)
[2018-05-05] MEDS: FLUCONAZOLE 100 MG TAB PO SCH (09:06)
[2018-05-05] MEDS: LACTOBACILLUS ACIDOPHILUS TAB PO SCH ×3 (09:06→17:24)
[2018-05-05] MEDS: NYSTATIN 100,000 UNIT/GM CREAM 15 GM TOPICAL SCH ×2 (09:06→21:39)
[2018-05-05] MEDS: BRIMONIDINE TARTRATE 0.15% OPHT SOLN 5 ML BTL EACH EYE SCH ×3 (09:06→17:24)
[2018-05-05] MEDS: LATANOPROST 0.005% OPHT SOLN 2.5 ML BTL EACH EYE SCH ×2 (09:06→21:39)
[2018-05-05] MEDS: CHOLESTYRAMINE LIGHT 4 GM PACKAGE PO SCH ×2 (09:07→21:39)
[2018-05-05] MEDS: FIDAXOMICIN 200 MG TAB PO SCH ×2 (09:07→21:39)
[2018-05-05] MEDS: CALCIUM CARBONATE 1.25 GM (CA 500 MG) TAB PO SCH ×2 (09:07→21:40)
[2018-05-05] MEDS: SODIUM CHLORIDE 0.9% FLUSH 10 ML FLUSH IV FLUSH SCH ×2 (09:07→21:39)
--- NOTE | 2018-05-05 10:45 | HHI.PR ---
Subjective Remarks Patient is still having significant diarrhea and crampy abdominal pain. Still having a cough. Denies shortness of breath. Objective Vitals Vital Signs Date Time Temp Pulse Resp B/P (MAP) Pulse Ox O2 Delivery O2 Flow Rate FiO2 05/05/18 08:00 97.6 87 20 139/62 (87) 95 05/05/18 00:00 97.4 94 20 127/58 (81) 95 05/04/18 20:43 93 21 05/04/18 20:00 96.9 75 20 109/53 (71) 93 05/04/18 17:17 92 21 05/04/18 16:00 96.9 66 19 110/60 (77) 96 05/04/18 15:36 96 21 05/04/18 12:00 97.0 68 19 111/85 (94) 97 I/O 05/04/18 05/04/18 05/04/18 05/05/18 05/05/18 05/05/18 07:00 15:00 23:00 07:00 15:00 23:00 Intake Total 0 ml 946 ml 1000 ml 120 ml Output Total 500 ml Balance 0 ml 446 ml 1000 ml 120 ml Intake Oral 0 ml 946 ml 1000 ml 120 ml Output Urine Total 500 ml # Voids 4 # Bowel Movements 3 4 Result Diagram: 05/05/1852605/05/18526 Objective Remarks GENERAL: This is a well-nourished, well-developed patient, in no apparent distress. multiple skin tears in different healing stages. CARDIOVASCULAR: Sinus tachycardia with 5 out of 6 systolic murmur no gallops or rubs appreciated RESPIRATORY: Decreased breath sounds bilaterally due to poor effort, increased work of breathing with accessory muscle use GASTROINTESTINAL: Abdomen soft, non-tender, nondistended. Normal active bowel sounds MUSCULOSKELETAL: Extremities without clubbing, cyanosis, or edema. NEURO: Alert & Oriented x4 to person, place, time, situation. Moves all ext x4 A/P Problem List: (1) Sepsis ICD Code: A41.9 - Sepsis, unspecified organism Status: Acute Plan: Secondary to C. difficile Continue with Dificid per infectious disease recommendations. Urine cultures are negative (2) C. difficile diarrhea ICD Code: A04.72 - Enterocolitis due to Clostridium difficile, not specified as recurrent Plan: Repeat CT abdomen and pelvis confirmed diffuse colitis. ID consult appreciated Continue with Dificid Continue Questran twice daily (3) Metabolic acidosis with normal anion gap and bicarbonate losses ICD Code: E87.2 - Acidosis Plan: Resolved after bicarbonate drip Secondary to sepsis (4) Transaminitis ICD Code: R74.0 - Nonspecific elevation of levels of transaminase and lactic acid dehydrogenase [LDH] Plan: Somewhat improved Home statin on hold (5) Metabolic encephalopathy ICD Code: G93.41 - Metabolic encephalopathy Plan: Resolved after treatment of infection (6) Acute kidney injury ICD Code: N17.9 - Acute kidney failure, unspecified Plan: Resolved after IV fluids (7) Skin tear Plan: Patient also with decubitus ulcer wound care nurse evaluation appreciated Continue with supportive care (8) Lung mass ICD Code: R91.8 - Other nonspecific abnormal finding of lung field Plan: Continue with further evaluation Pulmonary consult appreciated, follow-up with PET scan as an outpatient Consider outpatient biopsy if hot on imaging outpatient workup when she has recovered from her sepsis Previously discussed at length with patient (9) Shortness of breath ICD Code: R06.02 - Shortness of breath Plan: Improved after Lasix Likely multifactorial due to volume overload History of aortic valve stenosis and overall poor clinical status Echocardiogram shows mildly elevated PA pressures with normal systolic function, , no severe aortic stenosis Continue with medical management Chad Jon MD May 05, 2018 10:45
--- NOTE | 2018-05-05 17:52 | HHI.PR ---
Subjective Remarks 82 YOWF with C.diff inf, RUL nodule Feels weak Mild sob Diarrhoea improving lung bx on hold Objective Vital Signs Vital Signs Date Time Temp Pulse Resp B/P (MAP) Pulse Ox O2 Delivery O2 Flow Rate FiO2 05/05/18 16:00 97.8 79 19 107/67 (80) 96 05/05/18 15:18 94 21 05/05/18 12:00 98.7 69 19 116/58 (77) 97 05/05/18 08:00 97.6 87 20 139/62 (87) 95 05/05/18 00:00 97.4 94 20 127/58 (81) 95 05/04/18 20:43 93 21 05/04/18 20:00 96.9 75 20 109/53 (71) 93 I/O 05/04/18 05/04/18 05/04/18 05/05/18 05/05/18 05/05/18 07:00 15:00 23:00 07:00 15:00 23:00 Intake Total 0 ml 946 ml 1000 ml 120 ml Output Total 500 ml Balance 0 ml 446 ml 1000 ml 120 ml Intake Oral 0 ml 946 ml 1000 ml 120 ml Output Urine Total 500 ml # Voids 4 # Bowel Movements 3 4 Result Diagram: 05/05/1827 05/05/18526 Objective Remarks GENERAL: Frail elderly female, NAD, weak SKIN: Warm and dry. HEAD: Normocephalic. EYES: No scleral icterus. No injection or drainage. NECK: Supple, trachea midline. No JVD or lymphadenopathy. CARDIOVASCULAR: Regular rate and rhythm without murmurs, gallops, or rubs. RESPIRATORY: Breath sounds equal bilaterally. No accessory muscle use. GASTROINTESTINAL: Abdomen soft, non-tender, nondistended. MUSCULOSKELETAL: No cyanosis, or edema. BACK: Nontender without obvious deformity. No CVA tenderness. A/P Assessment and Plan 1. A 1.6 cm right upper lobe nodule. Malignancy needs to be ruled out. 2. Leukocytosis. 3. Clostridium difficile colitis. 4. Hypertension. PLAN: PO Vancomycin Monitor CBC lung bx when more stable. Dino Coleman MD May 05, 2018 17:52
--- NOTE | 2018-05-05 18:49 | HHI.IDPN ---
Subjective Subjective Remarks Feels better Diarrhea slowing down No fevers Antibiotics Dificid Lines Peripheral IV line Past Medical History HTN Hyperlipidemia Gout Allergies: Coded Allergies: penicillin G (Unverified Allergy, Severe, SWELLING, 04/28/18) Review of Systems Constitutional Constitutional Remarks No fevers Objective . Vital Signs Date Time Temp Pulse Resp B/P (MAP) Pulse Ox O2 Delivery O2 Flow Rate FiO2 05/05/18 16:00 97.8 79 19 107/67 (80) 96 05/05/18 15:18 94 21 05/05/18 12:00 98.7 69 19 116/58 (77) 97 05/05/18 08:00 97.6 87 20 139/62 (87) 95 05/05/18 00:00 97.4 94 20 127/58 (81) 95 05/04/18 20:43 93 21 05/04/18 20:00 96.9 75 20 109/53 (71) 93 05/05/18 05/05/18 05/06/18 15:00 23:00 07:00 Intake Total 120 ml 1020 ml Output Total 600 ml Balance 120 ml 420 ml Intake Oral 120 ml 1020 ml Output Urine Total 600 ml # Bowel Movements 5 . Laboratory Tests Test 05/04/18 04:43 05/05/18 05:27 White Blood Count 45.3 TH/MM3 27.5 TH/MM3 Red Blood Count 4.08 MIL/MM3 3.62 MIL/MM3 Hemoglobin 13.3 GM/DL 12.1 GM/DL Hematocrit 39.2 % 34.9 % Mean Corpuscular Volume 95.9 FL 96.5 FL Mean Corpuscular Hemoglobin 32.7 PG 33.4 PG Mean Corpuscular Hemoglobin Concent 34.1 % 34.6 % Red Cell Distribution Width 17.3 % 17.8 % Platelet Count 145 TH/MM3 165 TH/MM3 Mean Platelet Volume 9.2 FL 10.0 FL CBC Comment AUTO DIFF AUTO DIFF Differential Total Cells Counted 100 100 Neutrophils % (Manual) 70 % 59 % Band Neutrophils % 14 % 23 % Lymphocytes % 9 % 8 % Monocytes % 4 % 2 % Neutrophils # (Manual) 39.4 TH/MM3 24.8 TH/MM3 Metamyelocytes 3 % 4 % Nucleated Red Blood Cells 3 /100 WBC Differential Comment FINAL DIFF MANUAL FINAL DIFF MANUAL Platelet Estimate NORMAL NORMAL Platelet Morphology Comment ENLARGED NORMAL Neutrophils (%) (Auto) 79.8 % Lymphocytes (%) (Auto) 14.0 % Monocytes (%) (Auto) 5.4 % Eosinophils (%) (Auto) 0.6 % Basophils (%) (Auto) 0.2 % Neutrophils # (Auto) 21.9 TH/MM3 Lymphocytes # (Auto) 3.8 TH/MM3 Monocytes # (Auto) 1.5 TH/MM3 Eosinophils # (Auto) 0.2 TH/MM3 Basophils # (Auto) 0.1 TH/MM3 Myelocytes 4 % Toxic Granulation 1+ Laboratory Tests Test 05/05/18 05:27 Blood Urea Nitrogen 15 MG/DL Creatinine 0.47 MG/DL Random Glucose 92 MG/DL Total Protein 5.7 GM/DL Albumin 1.7 GM/DL Calcium Level 7.5 MG/DL Alkaline Phosphatase 228 U/L Aspartate Amino Transf (AST/SGOT) 46 U/L Alanine Aminotransferase (ALT/SGPT) 44 U/L Total Bilirubin 0.5 MG/DL Sodium Level 135 MEQ/L Potassium Level 4.0 MEQ/L Chloride Level 105 MEQ/L Carbon Dioxide Level 21.8 MEQ/L Anion Gap 8 MEQ/L Estimat Glomerular Filtration Rate 127 ML/MIN Microbiology Date/Time Source Procedure Growth Status 05/04/18 10:35 Blood Peripheral Aerobic Blood Culture - Preliminary NO GROWTH IN 1 DAY Resulted 05/04/18 10:35 Blood Peripheral Anaerobic Blood Culture - Preliminary NO GROWTH IN 1 DAY Resulted 05/04/18 10:20 Blood Peripheral Aerobic Blood Culture - Preliminary NO GROWTH IN 1 DAY Resulted 05/04/18 10:20 Blood Peripheral Anaerobic Blood Culture - Preliminary NO GROWTH IN 1 DAY Resulted Physical Exam GENERAL: This is a chronically ill elderly patient, in no apparent distress. SKIN: No rashes, ecchymoses or lesions. Cool and dry. HEAD: Atraumatic. Normocephalic. No temporal or scalp tenderness. EYES: Pupils equal round and reactive. Extraocular motions intact. No scleral icterus. No injection or drainage. ENT: Nose without bleeding, purulent drainage or septal hematoma. Throat without erythema, tonsillar hypertrophy or exudate. Uvula midline. Airway patent. NECK: Trachea midline. No JVD or lymphadenopathy. Supple, nontender, no meningeal signs. CARDIOVASCULAR: Regular rate and rhythm without murmurs, gallops, or rubs. RESPIRATORY: Clear to auscultation. Breath sounds equal bilaterally. No wheezes , rales, or rhonchi. GASTROINTESTINAL: Abdomen soft, non-tender, nondistended. No hepato-splenomegaly , or palpable masses. No guarding. MUSCULOSKELETAL: Legs in ankle protecting boots NEUROLOGICAL: Awake and alert. Cranial nerves II through XII intact. Motor and sensory grossly within normal limits. Five out of 5 muscle strength in all muscle groups. Normal speech. Assessment & Plan Diagnosis: (1) Sepsis ICD Codes: A41.9 - Sepsis, unspecified organism Status: Acute Plan: Patient's sepsis due to severe C diff- avoid other antibiotics at this time Blood cultures- negative so far (2) C. difficile diarrhea ICD Codes: A04.72 - Enterocolitis due to Clostridium difficile, not specified as recurrent Plan: Leucocytosis improved Continue Dificid 200 mg po bid due to failing treatment with Vancomycin and severity of the colitis (3) Lung mass ICD Codes: R91.8 - Other nonspecific abnormal finding of lung field Plan: Pulmonary following patient (4) Skin candidiasis ICD Codes: B37.2 - Candidiasis of skin and nail Plan: Ct Fluconazole with close monitoring of LFTs Nystatin cream Dena Oshea MD May 05, 2018 18:49
[2018-05-06] VITALS (7 sets, daily range): BP systolic 102–147; BP diastolic 67–75; PULSE 70–106; RESP 20; TEMP 96.2–99.1; O2SAT 93–95
[2018-05-06] MEDS: HEPARIN SODIUM - SQ 10,000 UNITS/ML VIAL SQ SCH ×3 (06:04→22:29)
[2018-05-06 06:37] LABS: HEMOGLOBIN 11.4 GM/DL (11.6-15.3); MEAN CELL VOLUME 99.8 FL (80.0-100.0); MEAN CORPUSCULAR HEMOGLOBIN 32.4 PG (27.0-34.0); MEAN CORPUSCULAR HGB CONC 32.5 % (32.0-36.0); MEAN PLATELET VOLUME 8.7 FL (7.0-11.0); PLATELET COUNT 169 TH/MM3 (150-450); RED CELL DISTRIBUTION WIDTH 17.1 % (11.6-17.2); WHITE BLOOD COUNT 19.4 TH/MM3 (4.0-11.0)
[2018-05-06 07:01] LABS: CALCIUM 7.7 MG/DL (8.5-10.1)
[2018-05-06 07:02] LABS: ALBUMIN 1.7 GM/DL (3.4-5.0); BICARBONATE 21.9 MEQ/L (21.0-32.0)
[2018-05-06 07:04] LABS: DIRECT BILIRUBIN ADULT 0.1 MG/DL (0.0-0.2)
[2018-05-06 07:05] LABS: CREATININE 0.38 MG/DL (0.50-1.00)
[2018-05-06 07:07] LABS: INDIRECT BILIRUBIN 0.4 MG/DL (0.0-0.8); TOTAL BILIRUBIN ADULT 0.5 MG/DL (0.2-1.0); TOTAL PROTEIN 5.7 GM/DL (6.4-8.2)
--- NOTE | 2018-05-06 08:35 | HHI.IDPN ---
Subjective Subjective Remarks Feels better Diarrhea slowing down No fevers C/o dry cough Antibiotics Dificid Lines Peripheral IV line Past Medical History HTN Hyperlipidemia Gout Allergies: Coded Allergies: penicillin G (Unverified Allergy, Severe, SWELLING, 04/28/18) Review of Systems Constitutional Constitutional Remarks No fevers Objective . Vital Signs Date Time Temp Pulse Resp B/P (MAP) Pulse Ox O2 Delivery O2 Flow Rate FiO2 05/06/18 07:35 96.2 82 20 142/67 (92) 93 05/06/18 00:00 98.2 87 20 147/75 (99) 95 05/05/18 20:41 96 21 05/05/18 20:00 97.1 75 20 149/60 (89) 96 05/05/18 16:00 97.8 79 19 107/67 (80) 96 05/05/18 15:18 94 21 05/05/18 12:00 98.7 69 19 116/58 (77) 97 . Laboratory Tests Test 05/05/18 05:27 05/06/18 05:50 White Blood Count 27.5 TH/MM3 19.4 TH/MM3 Red Blood Count 3.62 MIL/MM3 3.50 MIL/MM3 Hemoglobin 12.1 GM/DL 11.4 GM/DL Hematocrit 34.9 % 35.0 % Mean Corpuscular Volume 96.5 FL 99.8 FL Mean Corpuscular Hemoglobin 33.4 PG 32.4 PG Mean Corpuscular Hemoglobin Concent 34.6 % 32.5 % Red Cell Distribution Width 17.8 % 17.1 % Platelet Count 165 TH/MM3 169 TH/MM3 Mean Platelet Volume 10.0 FL 8.7 FL Neutrophils (%) (Auto) 79.8 % Lymphocytes (%) (Auto) 14.0 % Monocytes (%) (Auto) 5.4 % Eosinophils (%) (Auto) 0.6 % Basophils (%) (Auto) 0.2 % Neutrophils # (Auto) 21.9 TH/MM3 Lymphocytes # (Auto) 3.8 TH/MM3 Monocytes # (Auto) 1.5 TH/MM3 Eosinophils # (Auto) 0.2 TH/MM3 Basophils # (Auto) 0.1 TH/MM3 CBC Comment AUTO DIFF Differential Total Cells Counted 100 Neutrophils % (Manual) 59 % Band Neutrophils % 23 % Lymphocytes % 8 % Monocytes % 2 % Neutrophils # (Manual) 24.8 TH/MM3 Metamyelocytes 4 % Myelocytes 4 % Differential Comment FINAL DIFF MANUAL Toxic Granulation 1+ Platelet Estimate NORMAL Platelet Morphology Comment NORMAL Laboratory Tests Test 05/05/18 05:27 05/06/18 05:50 Blood Urea Nitrogen 15 MG/DL 13 MG/DL Creatinine 0.47 MG/DL 0.38 MG/DL Random Glucose 92 MG/DL 96 MG/DL Total Protein 5.7 GM/DL 5.7 GM/DL Albumin 1.7 GM/DL 1.7 GM/DL Calcium Level 7.5 MG/DL 7.7 MG/DL Alkaline Phosphatase 228 U/L 195 U/L Aspartate Amino Transf (AST/SGOT) 46 U/L 35 U/L Alanine Aminotransferase (ALT/SGPT) 44 U/L 36 U/L Total Bilirubin 0.5 MG/DL 0.5 MG/DL Sodium Level 135 MEQ/L 137 MEQ/L Potassium Level 4.0 MEQ/L 4.2 MEQ/L Chloride Level 105 MEQ/L 108 MEQ/L Carbon Dioxide Level 21.8 MEQ/L 21.9 MEQ/L Anion Gap 8 MEQ/L 7 MEQ/L Estimat Glomerular Filtration Rate 127 ML/MIN 162 ML/MIN Direct Bilirubin 0.1 MG/DL Indirect Bilirubin 0.4 MG/DL Microbiology Date/Time Source Procedure Growth Status 05/04/18 10:35 Blood Peripheral Aerobic Blood Culture - Preliminary NO GROWTH IN 1 DAY Resulted 05/04/18 10:35 Blood Peripheral Anaerobic Blood Culture - Preliminary NO GROWTH IN 1 DAY Resulted 05/04/18 10:20 Blood Peripheral Aerobic Blood Culture - Preliminary NO GROWTH IN 1 DAY Resulted 05/04/18 10:20 Blood Peripheral Anaerobic Blood Culture - Preliminary NO GROWTH IN 1 DAY Resulted Physical Exam GENERAL: This is a chronically ill elderly patient, in no apparent distress. SKIN: No rashes, ecchymoses or lesions. Cool and dry. HEAD: Atraumatic. Normocephalic. No temporal or scalp tenderness. EYES: Pupils equal round and reactive. Extraocular motions intact. No scleral icterus. No injection or drainage. ENT: Nose without bleeding, purulent drainage or septal hematoma. Throat without erythema, tonsillar hypertrophy or exudate. Uvula midline. Airway patent. NECK: Trachea midline. No JVD or lymphadenopathy. Supple, nontender, no meningeal signs. CARDIOVASCULAR: Regular rate and rhythm without murmurs, gallops, or rubs. RESPIRATORY: Clear to auscultation. Breath sounds equal bilaterally. No wheezes , rales, or rhonchi. GASTROINTESTINAL: Abdomen soft, non-tender, nondistended. No hepato-splenomegaly , or palpable masses. No guarding. MUSCULOSKELETAL: Legs in ankle protecting boots NEUROLOGICAL: Awake and alert. Cranial nerves II through XII intact. Motor and sensory grossly within normal limits. Five out of 5 muscle strength in all muscle groups. Normal speech. Assessment & Plan Diagnosis: (1) Sepsis ICD Codes: A41.9 - Sepsis, unspecified organism Status: Acute Plan: Patient's sepsis due to severe C diff- avoid other antibiotics at this time Blood cultures- negative so far (2) C. difficile diarrhea ICD Codes: A04.72 - Enterocolitis due to Clostridium difficile, not specified as recurrent Plan: Leucocytosis improved Continue Dificid 200 mg po bid due to failing treatment with Vancomycin and severity of the colitis- will need for 10 days (3) Lung mass ICD Codes: R91.8 - Other nonspecific abnormal finding of lung field Plan: Pulmonary following patient (4) Skin candidiasis ICD Codes: B37.2 - Candidiasis of skin and nail Plan: Ct Fluconazole with close monitoring of LFTs Nystatin cream Dena Oshea MD May 06, 2018 08:35
[2018-05-06] MEDS: SODIUM CHLORIDE 0.9% FLUSH 10 ML FLUSH IV FLUSH SCH ×2 (09:57→22:29)
[2018-05-06] MEDS: LACTOBACILLUS ACIDOPHILUS TAB PO SCH ×3 (09:57→17:58)
[2018-05-06] MEDS: FLUCONAZOLE 100 MG TAB PO SCH (09:57)
[2018-05-06] MEDS: CALCIUM CARBONATE 1.25 GM (CA 500 MG) TAB PO SCH ×2 (09:57→22:29)
[2018-05-06] MEDS: FIDAXOMICIN 200 MG TAB PO SCH ×2 (09:57→22:29)
[2018-05-06] MEDS: guaiFENesin E.R. 600 MG TAB PO SCH ×2 (09:57→22:29)
[2018-05-06] MEDS: METOPROLOL TARTRATE 25 MG TAB PO SCH (09:58)
[2018-05-06] MEDS: CHOLESTYRAMINE LIGHT 4 GM PACKAGE PO SCH ×2 (09:58→22:29)
[2018-05-06] MEDS: NYSTATIN 100,000 UNIT/GM CREAM 15 GM TOPICAL SCH ×2 (10:02→22:30)
--- NOTE | 2018-05-06 10:06 | HHI.PR ---
Subjective Remarks Patient reports diarrhea is slowing down. Eating well. Would like to get out of bed more. Objective Vitals Vital Signs Date Time Temp Pulse Resp B/P (MAP) Pulse Ox O2 Delivery O2 Flow Rate FiO2 05/06/18 07:35 96.2 82 20 142/67 (92) 93 05/06/18 00:00 98.2 87 20 147/75 (99) 95 05/05/18 20:41 96 21 05/05/18 20:00 97.1 75 20 149/60 (89) 96 05/05/18 16:00 97.8 79 19 107/67 (80) 96 05/05/18 15:18 94 21 05/05/18 12:00 98.7 69 19 116/58 (77) 97 I/O 05/05/18 05/05/18 05/05/18 05/06/18 05/06/18 05/06/18 07:00 15:00 23:00 07:00 15:00 23:00 Intake Total 1000 ml 120 ml 1020 ml 240 ml Output Total 600 ml Balance 1000 ml 120 ml 420 ml 240 ml Intake Oral 1000 ml 120 ml 1020 ml 240 ml Output Urine Total 600 ml # Voids 4 1 3 # Bowel Movements 4 6 2 Result Diagram: 05/06/18 0550 05/06/18 0550 Objective Remarks GENERAL: This is a well-nourished, well-developed patient, in no apparent distress. multiple skin tears in different healing stages. CARDIOVASCULAR: Sinus tachycardia with 5 out of 6 systolic murmur no gallops or rubs appreciated RESPIRATORY: Diminished breath sounds at the bases, otherwise clear to auscultation bilaterally. GASTROINTESTINAL: Abdomen soft, non-tender, nondistended. Normal active bowel sounds MUSCULOSKELETAL: Extremities without clubbing, cyanosis, or edema. NEURO: Alert & Oriented x4 to person, place, time, situation. Moves all ext x4 A/P Problem List: (1) Sepsis ICD Code: A41.9 - Sepsis, unspecified organism Status: Acute Plan: Secondary to C. difficile Continue with Dificid per infectious disease recommendations. Urine cultures are negative C. difficile colitis symptoms are finally improving. Diarrhea less frequent. (2) C. difficile diarrhea ICD Code: A04.72 - Enterocolitis due to Clostridium difficile, not specified as recurrent Plan: Repeat CT abdomen and pelvis confirmed diffuse colitis. ID consult appreciated Continue with Dificid Continue Questran twice daily Symptoms improving (3) Metabolic acidosis with normal anion gap and bicarbonate losses ICD Code: E87.2 - Acidosis Plan: Resolved after bicarbonate drip Secondary to sepsis (4) Transaminitis ICD Code: R74.0 - Nonspecific elevation of levels of transaminase and lactic acid dehydrogenase [LDH] Plan: Probably secondary to sepsis. Resolved. (5) Metabolic encephalopathy ICD Code: G93.41 - Metabolic encephalopathy Plan: Resolved after treatment of infection (6) Acute kidney injury ICD Code: N17.9 - Acute kidney failure, unspecified Plan: Resolved after IV fluids (7) Skin tear Plan: Patient also with decubitus ulcer wound care nurse evaluation appreciated Continue with supportive care (8) Lung mass ICD Code: R91.8 - Other nonspecific abnormal finding of lung field Plan: Continue with further evaluation Pulmonary consult appreciated, follow-up with PET scan as an outpatient Consider outpatient biopsy if hot on imaging outpatient workup when she has recovered from her sepsis Previously discussed at length with patient (9) Shortness of breath ICD Code: R06.02 - Shortness of breath Plan: Improved after Lasix Likely multifactorial due to volume overload History of aortic valve stenosis and overall poor clinical status Echocardiogram shows mildly elevated PA pressures with normal systolic function, , no severe aortic stenosis Continue with medical management Discharge Planning Pending improvement in C. difficile colitis symptoms. Possibly in the next 24- 48 hours. Will likely need SNF. Chad Jon MD May 06, 2018 10:06
[2018-05-06] MEDS: RESP: ALBUTEROL 2.5 MG/IPRATROPIUM 0.5 MG NEB (PRN) NEB (14:07)
--- NOTE | 2018-05-06 18:26 | HHI.PR ---
Subjective Remarks 82 YOWF with C.diff inf, RUL nodule Feels weak Mild sob Diarrhoea improving lung bx on hold has cough, occ sputum. Objective Vital Signs Vital Signs Date Time Temp Pulse Resp B/P (MAP) Pulse Ox O2 Delivery O2 Flow Rate FiO2 05/06/18 15:45 97.2 70 20 102/69 (80) 05/06/18 14:12 95 21 05/06/18 11:18 96.6 73 20 138/72 (94) 94 05/06/18 07:35 96.2 82 20 142/67 (92) 93 05/06/18 00:00 98.2 87 20 147/75 (99) 95 05/05/18 20:41 96 21 05/05/18 20:00 97.1 75 20 149/60 (89) 96 I/O 05/05/18 05/05/18 05/05/18 05/06/18 05/06/18 05/06/18 07:00 15:00 23:00 07:00 15:00 23:00 Intake Total 1000 ml 120 ml 1020 ml 240 ml 1080 ml Output Total 600 ml 4 ml Balance 1000 ml 120 ml 420 ml 240 ml 1076 ml Intake Oral 1000 ml 120 ml 1020 ml 240 ml 1080 ml Output Urine Total 600 ml 4 ml # Voids 4 1 3 # Bowel Movements 4 6 2 2 Result Diagram: 05/06/18 0550 05/06/18 0550 Objective Remarks GENERAL: Frail elderly female, NAD, weak SKIN: Warm and dry. HEAD: Normocephalic. EYES: No scleral icterus. No injection or drainage. NECK: Supple, trachea midline. No JVD or lymphadenopathy. CARDIOVASCULAR: Regular rate and rhythm without murmurs, gallops, or rubs. RESPIRATORY: Breath sounds equal bilaterally. No accessory muscle use. GASTROINTESTINAL: Abdomen soft, non-tender, nondistended. MUSCULOSKELETAL: No cyanosis, or edema. BACK: Nontender without obvious deformity. No CVA tenderness. A/P Assessment and Plan 1. A 1.6 cm right upper lobe nodule. Malignancy needs to be ruled out. 2. Leukocytosis. 3. Clostridium difficile colitis. 4. Hypertension. PLAN: PO Vancomycin Monitor CBC lung bx when more stable. Aerosol nebs Dino Coleman MD May 06, 2018 18:26
[2018-05-06] MEDS: RESP: ALBUTEROL 2.5 MG/IPRATROPIUM 0.5 MG NEB (PRN) INH (19:53)
[2018-05-06] MEDS: LATANOPROST 0.005% OPHT SOLN 2.5 ML BTL EACH EYE SCH (21:00)
[2018-05-07] VITALS (9 sets, daily range): BP systolic 110–182; BP diastolic 59–103; PULSE 56–118; RESP 18–20; TEMP 95.8–98.1; O2SAT 95–98
[2018-05-07] MEDS: HEPARIN SODIUM - SQ 10,000 UNITS/ML VIAL SQ SCH ×3 (05:44→22:56)
[2018-05-07 06:13] LABS: HEMATOCRIT 32.2 % (35.0-46.0); HEMOGLOBIN 11.2 GM/DL (11.6-15.3); MEAN CELL VOLUME 97.6 FL (80.0-100.0); MEAN CORPUSCULAR HEMOGLOBIN 33.9 PG (27.0-34.0); MEAN CORPUSCULAR HGB CONC 34.8 % (32.0-36.0); MEAN PLATELET VOLUME 9.3 FL (7.0-11.0); PLATELET COUNT 186 TH/MM3 (150-450); RED CELL DISTRIBUTION WIDTH 18.3 % (11.6-17.2); WHITE BLOOD COUNT 20.5 TH/MM3 (4.0-11.0)
[2018-05-07 06:25] LABS: ALBUMIN 1.7 GM/DL (3.4-5.0); BICARBONATE 21.1 MEQ/L (21.0-32.0); CALCIUM 7.8 MG/DL (8.5-10.1)
[2018-05-07 06:28] LABS: CREATININE 0.4 MG/DL (0.50-1.00); DIRECT BILIRUBIN ADULT 0.2 MG/DL (0.0-0.2)
[2018-05-07 06:30] LABS: INDIRECT BILIRUBIN 0.4 MG/DL (0.0-0.8); TOTAL BILIRUBIN ADULT 0.6 MG/DL (0.2-1.0); TOTAL PROTEIN 5.5 GM/DL (6.4-8.2)
[2018-05-07] MEDS: RESP: ALBUTEROL 2.5 MG/IPRATROPIUM 0.5 MG NEB (PRN) INH ×2 (07:54→19:48)
[2018-05-07] MEDS: CALCIUM CARBONATE 1.25 GM (CA 500 MG) TAB PO SCH ×2 (09:37→22:57)
[2018-05-07] MEDS: CHOLESTYRAMINE LIGHT 4 GM PACKAGE PO SCH ×2 (09:37→22:58)
[2018-05-07] MEDS: FIDAXOMICIN 200 MG TAB PO SCH ×2 (09:37→22:58)
[2018-05-07] MEDS: METOPROLOL TARTRATE 25 MG TAB PO SCH (09:37)
[2018-05-07] MEDS: LACTOBACILLUS ACIDOPHILUS TAB PO SCH ×3 (09:37→17:45)
[2018-05-07] MEDS: FLUCONAZOLE 100 MG TAB PO SCH (09:37)
[2018-05-07] MEDS: guaiFENesin E.R. 600 MG TAB PO SCH ×2 (09:37→22:57)
[2018-05-07] MEDS: NYSTATIN 100,000 UNIT/GM CREAM 15 GM TOPICAL SCH ×2 (09:38→22:58)
[2018-05-07] MEDS: SODIUM CHLORIDE 0.9% FLUSH 10 ML FLUSH IV FLUSH SCH ×2 (09:38→22:58)
--- NOTE | 2018-05-07 11:39 | HHI.PR ---
Subjective Remarks Patient continues to have a cough and WBC is still 20k. C diff symptoms much improved. Stool more formed. Objective Vitals Vital Signs Date Time Temp Pulse Resp B/P (MAP) Pulse Ox O2 Delivery O2 Flow Rate FiO2 05/07/18 08:00 96.8 118 18 117/59 (78) 96 05/07/18 07:57 97 05/07/18 05:29 96.9 05/07/18 00:44 95.8 99 20 127/79 (95) 96 05/06/18 20:26 99.1 106 20 127/67 (87) 95 05/06/18 19:55 94 21 05/06/18 15:45 97.2 70 20 102/69 (80) 05/06/18 14:12 95 21 I/O 05/06/18 05/06/18 05/06/18 05/07/18 05/07/18 05/07/18 07:00 15:00 23:00 07:00 15:00 23:00 Intake Total 240 ml 1080 ml Output Total 4 ml 300 ml Balance 240 ml 1076 ml -300 ml Intake Oral 240 ml 1080 ml Output Urine Total 4 ml 200 ml Stool Total 100 ml # Voids 3 2 1 # Bowel Movements 2 4 5 Result Diagram: 05/07/18 0520 05/07/18 0520 Objective Remarks GENERAL: This is a well-nourished, well-developed patient, in no apparent distress. multiple skin tears in different healing stages. CARDIOVASCULAR: Normal rate with 5 out of 6 systolic murmur no gallops or rubs appreciated RESPIRATORY: Diminished breath sounds at the bases, otherwise clear to auscultation bilaterally. GASTROINTESTINAL: Abdomen soft, non-tender, nondistended. Normal active bowel sounds MUSCULOSKELETAL: Extremities without clubbing, cyanosis, or edema. NEURO: Alert & Oriented x4 to person, place, time, situation. Moves all ext x4 A/P Problem List: (1) Sepsis ICD Code: A41.9 - Sepsis, unspecified organism Status: Acute Plan: Secondary to C. difficile Continue with Dificid per infectious disease recommendations. Urine cultures are negative C. difficile colitis symptoms are improving. Stool forming. (2) Shortness of breath ICD Code: R06.02 - Shortness of breath Plan: Improved after Lasix Likely multifactorial due to volume overload History of aortic valve stenosis and overall poor clinical status Echocardiogram shows mildly elevated PA pressures with normal systolic function, , no severe aortic stenosis SOB improved but Continues to have a cough. No other antibiotics per ID recs Obtain Chest xray today. (3) C. difficile diarrhea ICD Code: A04.72 - Enterocolitis due to Clostridium difficile, not specified as recurrent Plan: Repeat CT abdomen and pelvis confirmed diffuse colitis. ID consult appreciated Continue with Dificid Continue Questran twice daily Symptoms improving (4) Metabolic acidosis with normal anion gap and bicarbonate losses ICD Code: E87.2 - Acidosis Plan: Resolved after bicarbonate drip Secondary to sepsis (5) Transaminitis ICD Code: R74.0 - Nonspecific elevation of levels of transaminase and lactic acid dehydrogenase [LDH] Plan: Probably secondary to sepsis. Resolved. (6) Metabolic encephalopathy ICD Code: G93.41 - Metabolic encephalopathy Plan: Resolved after treatment of infection (7) Acute kidney injury ICD Code: N17.9 - Acute kidney failure, unspecified Plan: Resolved after IV fluids (8) Skin tear Plan: Patient also with decubitus ulcer wound care nurse evaluation appreciated Continue with supportive care (9) Lung mass ICD Code: R91.8 - Other nonspecific abnormal finding of lung field Plan: Continue with further evaluation Pulmonary consult appreciated, follow-up with PET scan as an outpatient Consider outpatient biopsy if hot on imaging Outpatient workup when she has recovered from her sepsis Previously discussed at length with patient Discharge Planning Cdiff improving, however WBC still 20k. F/U on chest x-ray for persistent cough. If remain stable or improve in the next 1-2 days, can discharge to SNF. She does need follow up with Pulmonology for the lung mass. Chad Jon MD May 07, 2018 11:39
--- NOTE | 2018-05-07 12:13 | RADRPT ---
EXAM DATE: 05/07/2018 11:57 AM EDT AGE/SEX: 82 years / Female INDICATIONS: Cough. CLINICAL DATA: This is the patient's subsequent encounter. Patient reports that signs and symptoms h ave been present for 2 weeks and indicates a pain score of 0/10. MEDICAL/SURGICAL HISTORY: Arthritis. Hypertension. Renal disease. Gout. . Hip replacement. COMPARISON: [facility], CT THORAX W/O CONTRAST, 05/01/2018. . FINDINGS: Right lung nodule is again noted. Stable asymmetric elevation of the right diaphragm with mild parenc hymal opacity at the right lung base. Left lung grossly clear. Possible small right effusion now pres ent. CONCLUSION: Slight parenchymal opacity at the right lung base with possible small effusion Electronically signed by: Arsh Crowe MD 05/07/2018 12:12 PM EDT
[2018-05-07] MEDS: LATANOPROST 0.005% OPHT SOLN 2.5 ML BTL EACH EYE SCH (22:59)
[2018-05-07] MEDS: BENZONATATE 100 MG CAP PO PRN (23:26)
[2018-05-08] VITALS (8 sets, daily range): BP systolic 104–137; BP diastolic 58–75; PULSE 71–105; RESP 18–22; TEMP 96.9–98.6; O2SAT 94–97
[2018-05-08] MEDS: HEPARIN SODIUM - SQ 10,000 UNITS/ML VIAL SQ SCH ×3 (05:15→21:10)
[2018-05-08 07:46] LABS: HEMATOCRIT 31.1 % (35.0-46.0); HEMOGLOBIN 10.9 GM/DL (11.6-15.3); MEAN CELL VOLUME 96.8 FL (80.0-100.0); MEAN CORPUSCULAR HEMOGLOBIN 34.1 PG (27.0-34.0); MEAN CORPUSCULAR HGB CONC 35.2 % (32.0-36.0); MEAN PLATELET VOLUME 8.8 FL (7.0-11.0); PLATELET COUNT 195 TH/MM3 (150-450); RED BLOOD COUNT 3.21 MIL/MM3 (4.00-5.30); RED CELL DISTRIBUTION WIDTH 17.8 % (11.6-17.2); WHITE BLOOD COUNT 17.2 TH/MM3 (4.0-11.0)
[2018-05-08 08:00] LABS: CALCIUM 7.6 MG/DL (8.5-10.1)
[2018-05-08 08:04] LABS: CREATININE 0.4 MG/DL (0.50-1.00)
[2018-05-08] MEDS: BENZONATATE 100 MG CAP PO PRN (08:43)
[2018-05-08] MEDS: FLUCONAZOLE 100 MG TAB PO SCH (08:43)
[2018-05-08] MEDS: guaiFENesin E.R. 600 MG TAB PO SCH ×2 (08:43→21:09)
[2018-05-08] MEDS: CALCIUM CARBONATE 1.25 GM (CA 500 MG) TAB PO SCH ×2 (08:43→21:10)
[2018-05-08] MEDS: FIDAXOMICIN 200 MG TAB PO SCH ×2 (08:43→21:09)
[2018-05-08] MEDS: CHOLESTYRAMINE LIGHT 4 GM PACKAGE PO SCH ×2 (08:43→21:09)
[2018-05-08] MEDS: METOPROLOL TARTRATE 25 MG TAB PO SCH (08:44)
[2018-05-08] MEDS: SODIUM CHLORIDE 0.9% FLUSH 10 ML FLUSH IV FLUSH SCH ×2 (10:05→20:23)
[2018-05-08] MEDS: LACTOBACILLUS ACIDOPHILUS TAB PO SCH ×3 (10:06→17:17)
[2018-05-08] MEDS: NYSTATIN 100,000 UNIT/GM CREAM 15 GM TOPICAL SCH ×2 (10:07→21:08)
--- NOTE | 2018-05-08 10:57 | HHI.PR ---
Subjective Remarks Pt states she feels about the same. STates that she already had 2 loose BM, some formed but not much per patient and doesn't feel any changes so far. Complains of cough, dry but does have some phelgm whitish at times. Gets some abdominal pain w coughing. denies any n/v Objective Vitals Vital Signs Date Time Temp Pulse Resp B/P (MAP) Pulse Ox O2 Delivery O2 Flow Rate FiO2 05/08/18 07:55 97.1 82 18 136/75 (95) 96 05/08/18 00:09 96.9 97 20 104/58 (73) 96 05/07/18 20:49 96.8 99 20 121/66 (84) 95 05/07/18 19:50 96 21 05/07/18 17:45 98 05/07/18 16:48 98.1 56 18 113/69 (84) 98 05/07/18 12:00 97.0 110 18 110/60 (77) 96 I/O 05/07/18 05/07/18 05/07/18 05/08/18 05/08/18 05/08/18 07:00 15:00 23:00 07:00 15:00 23:00 Intake Total 120 ml Output Total 300 ml Balance -300 ml 120 ml Intake Oral 120 ml Output Urine Total 200 ml Stool Total 100 ml # Voids 1 2 # Bowel Movements 5 1 Result Diagram: 05/08/1872105/08/18721 Imaging Last Impressions Chest X-Ray 05/07/18 0000 Signed Impressions: CONCLUSION: Slight parenchymal opacity at the right lung base with possible small effusion Abdomen/Pelvis CT 05/04/18 0000 Signed Impressions: CONCLUSION: 1. There is diffuse abnormal symmetric thickening involving the entire wall of the colon from the cecum all the way to the rectum suggestive of a nonspecific diffuse colitis. No mechanical obstruction is demonstrated. 2. Small amount of free fluid around the liver and spleen in the upper abdomen . 3. Nonspecific edema in the mesenteric fat and throughout the body wall. This suggests anasarca. 4. Scattered infiltrates in both lung bases, right greater than left. Chest CT 05/01/18 0000 Signed Impressions: CONCLUSION: 1. 1.6 cm right upper lung mass. This could be further evaluated with a PET FD G study at some point. It is amenable to biopsy if needed. 2. Thickening of the patient has portions of the colon. This is incompletely e valuated on this CT of the chest. 3. Moderate ascites seen in the upper abdomen. 4. Mild hiatal hernia. Objective Remarks GENERAL: Elderly female, sitting up on recliner. multiple skin tears in different healing stages. CARDIOVASCULAR: Normal rate with 4 out of 6 systolic murmur RESPIRATORY: Diminished breath sounds at the bases, otherwise clear to auscultation bilaterally. GASTROINTESTINAL: Abdomen soft, non-tender, nondistended. Normal active bowel sounds MUSCULOSKELETAL: Extremities without edema. NEURO: Alert & Oriented . Moves all ext x4 A/P Problem List: (1) Sepsis ICD Code: A41.9 - Sepsis, unspecified organism Status: Acute (2) Shortness of breath ICD Code: R06.02 - Shortness of breath (3) C. difficile diarrhea ICD Code: A04.72 - Enterocolitis due to Clostridium difficile, not specified as recurrent (4) Metabolic acidosis with normal anion gap and bicarbonate losses ICD Code: E87.2 - Acidosis (5) Transaminitis ICD Code: R74.0 - Nonspecific elevation of levels of transaminase and lactic acid dehydrogenase [LDH] (6) Metabolic encephalopathy ICD Code: G93.41 - Metabolic encephalopathy (7) Acute kidney injury ICD Code: N17.9 - Acute kidney failure, unspecified (8) Skin tear (9) Lung mass ICD Code: R91.8 - Other nonspecific abnormal finding of lung field Assessment and Plan (1) Sepsis Secondary to C. difficile Continue with Dificid per infectious disease recommendations. Urine cultures are negative C. difficile colitis symptoms are about the same per pt. not much improvement compared to yesterda (2) Shortness of breath Improved after Lasix Likely multifactorial due to volume overload History of aortic valve stenosis and overall poor clinical status Echocardiogram shows mildly elevated PA pressures with normal systolic function, , no severe aortic stenosis SOB improved but Continues to have a cough. No other antibiotics per ID recs Chest x-ray shows slight parenchymal opacity at the right lung base w possible small effusion. Encourage use of IS q1hr while awake. Schedule Duoneb q6hr while awake. Tessalon prn. (3) C. difficile diarrhea Repeat CT abdomen and pelvis confirmed diffuse colitis. ID following Continue with Dificid Continue Questran twice daily Monitor BMs and symptoms closely. (4) Metabolic acidosis with normal anion gap and bicarbonate losses Resolved after bicarbonate drip Secondary to sepsis (5) Transaminitis Probably secondary to sepsis. Resolved. (6) Metabolic encephalopathy Resolved after treatment of infection (7) Acute kidney injury Resolved after IV fluids (8) Skin tear Patient also with decubitus ulcer wound care nurse evaluation appreciated Continue with supportive care (9) Lung mass Continue with further evaluation Pulmonary consult appreciated, follow-up with PET scan as an outpatient. Per Dr. Coleman's note, lung bx to be done when pt more stable. Consider outpatient biopsy if hot on imaging Outpatient workup when she has recovered from her sepsis Previously discussed at length with patient Discharge Planning Cdiff somewhat improving but not much change per pt compared to yesterday, however WBC still 17k. She does need follow up with Pulmonology for the lung mass. Chest x-ray is concerning for slight parenchymal opacity. Encourage aggressive pulmonary toilet. Monitor WBC's closely and BM. Avoid abx per ID if possible Kathy Barrios MD May 08, 2018 10:57
[2018-05-08] MEDS: RESP: ALBUTEROL 2.5 MG/IPRATROPIUM 0.5 MG NEB (SCH) NEB ×2 (13:46→19:45)
--- NOTE | 2018-05-08 18:04 | HHI.PR ---
Subjective Remarks 82 YOWF with C.diff inf, RUL nodule Feels weak Mild sob Still has diarrhoea lung bx on hold has cough, occ sputum. Objective Vital Signs Vital Signs Date Time Temp Pulse Resp B/P (MAP) Pulse Ox O2 Delivery O2 Flow Rate FiO2 05/08/18 15:38 98.6 71 18 135/60 (85) 96 05/08/18 13:48 95 05/08/18 11:33 98.1 76 18 96 05/08/18 07:55 97.1 82 18 136/75 (95) 96 05/08/18 00:09 96.9 97 20 104/58 (73) 96 05/07/18 20:49 96.8 99 20 121/66 (84) 95 05/07/18 19:50 96 21 I/O 05/07/18 05/07/18 05/07/18 05/08/18 05/08/18 05/08/18 07:00 15:00 23:00 07:00 15:00 23:00 Intake Total 120 ml Output Total 300 ml Balance -300 ml 120 ml Intake Oral 120 ml Output Urine Total 200 ml Stool Total 100 ml # Voids 1 2 # Bowel Movements 5 1 4 Result Diagram: 05/08/1872105/08/18721 Objective Remarks GENERAL: Frail elderly female, NAD, weak SKIN: Warm and dry. HEAD: Normocephalic. EYES: No scleral icterus. No injection or drainage. NECK: Supple, trachea midline. No JVD or lymphadenopathy. CARDIOVASCULAR: Regular rate and rhythm without murmurs, gallops, or rubs. RESPIRATORY: Breath sounds equal bilaterally. No accessory muscle use. GASTROINTESTINAL: Abdomen soft, non-tender, nondistended. MUSCULOSKELETAL: No cyanosis, or edema. BACK: Nontender without obvious deformity. No CVA tenderness. A/P Assessment and Plan 1. A 1.6 cm right upper lobe nodule. Malignancy needs to be ruled out. 2. Leukocytosis. 3. Clostridium difficile colitis. 4. Hypertension. PLAN: PO Vancomycin Monitor CBC lung bx when more stable. Aerosol nebs tessalon 200 mg tid Stable from pulm standpoint Dino Coleman MD May 08, 2018 18:04
[2018-05-08] MEDS: LATANOPROST 0.005% OPHT SOLN 2.5 ML BTL EACH EYE SCH (21:00)
[2018-05-09] VITALS (8 sets, daily range): BP systolic 112–133; BP diastolic 58–68; PULSE 88–110; RESP 18–20; TEMP 96.2–98; O2SAT 94–97
[2018-05-09] MEDS: HEPARIN SODIUM - SQ 10,000 UNITS/ML VIAL SQ SCH ×2 (05:38→14:06)
[2018-05-09 06:47] LABS: AUTOMATED NEUTROPHIL # 12.2 TH/MM3 (1.8-7.7); BASOPHIL # 0.2 TH/MM3 (0-0.2); BASOPHIL % 0.9 % (0.0-2.0); EOSINOPHIL # 0.1 TH/MM3 (0-0.4); EOSINOPHIL % 0.7 % (0.0-4.0); HEMATOCRIT 34.4 % (35.0-46.0); HEMOGLOBIN 11.4 GM/DL (11.6-15.3); LYMPH % 24.1 % (9.0-44.0); LYMPHOCYTE # 4.2 TH/MM3 (1.0-4.8); MEAN CELL VOLUME 98.1 FL (80.0-100.0); MEAN CORPUSCULAR HEMOGLOBIN 32.6 PG (27.0-34.0); MEAN CORPUSCULAR HGB CONC 33.2 % (32.0-36.0); MEAN PLATELET VOLUME 9.1 FL (7.0-11.0); MONO % 5.2 % (0.0-8.0); MONOCYTE # 0.9 TH/MM3 (0-0.9); NEUT % 69.1 % (16.0-70.0); PLATELET COUNT 204 TH/MM3 (150-450); RED BLOOD COUNT 3.51 MIL/MM3 (4.00-5.30); RED CELL DISTRIBUTION WIDTH 17.2 % (11.6-17.2); WHITE BLOOD COUNT 17.6 TH/MM3 (4.0-11.0)
[2018-05-09 06:50] LABS: BICARBONATE 22.9 MEQ/L (21.0-32.0); CALCIUM 7.8 MG/DL (8.5-10.1)
[2018-05-09 06:51] LABS: MAGNESIUM 1.6 MG/DL (1.5-2.5)
[2018-05-09 06:54] LABS: CREATININE 0.47 MG/DL (0.50-1.00)
[2018-05-09] MEDS: RESP: ALBUTEROL 2.5 MG/IPRATROPIUM 0.5 MG NEB (SCH) NEB ×3 (07:20→19:11)
[2018-05-09] MEDS: METOPROLOL TARTRATE 25 MG TAB PO SCH (08:39)
[2018-05-09] MEDS: CALCIUM CARBONATE 1.25 GM (CA 500 MG) TAB PO SCH (08:39)
[2018-05-09] MEDS: LACTOBACILLUS ACIDOPHILUS TAB PO SCH ×3 (08:39→17:32)
[2018-05-09] MEDS: CHOLESTYRAMINE LIGHT 4 GM PACKAGE PO SCH (08:39)
[2018-05-09] MEDS: guaiFENesin E.R. 600 MG TAB PO SCH (08:40)
[2018-05-09] MEDS: FLUCONAZOLE 100 MG TAB PO SCH (08:40)
[2018-05-09] MEDS: FIDAXOMICIN 200 MG TAB PO SCH (08:40)
[2018-05-09] MEDS: NYSTATIN 100,000 UNIT/GM CREAM 15 GM TOPICAL SCH ×2 (08:42→21:00)
[2018-05-09] MEDS: SODIUM CHLORIDE 0.9% FLUSH 10 ML FLUSH IV FLUSH SCH (09:00)
--- NOTE | 2018-05-09 10:41 | HHI.PR ---
Subjective Remarks Pt states she feels a bit better today. Had one BM so far and still very watery. Appetite is good. States that her cough is also improved so far. No nausea or vomiting Objective Vitals Vital Signs Date Time Temp Pulse Resp B/P (MAP) Pulse Ox O2 Delivery O2 Flow Rate FiO2 05/09/18 07:34 94 21 05/09/18 07:30 96.6 96 20 133/60 (84) 94 05/09/18 00:00 96.2 88 20 117/68 (84) 96 05/08/18 20:00 98.4 99 20 137/60 (85) 96 05/08/18 19:45 94 21 05/08/18 15:38 98.6 71 18 135/60 (85) 96 05/08/18 13:48 95 05/08/18 11:33 98.1 76 18 96 I/O 05/08/18 05/08/18 05/08/18 05/09/18 05/09/18 05/09/18 07:00 15:00 23:00 07:00 15:00 23:00 Intake Total 60 ml 120 ml 240 ml Balance 60 ml 120 ml 240 ml Intake Oral 60 ml 120 ml 240 ml # Voids 2 2 1 # Bowel Movements 1 4 2 Result Diagram: 05/09/1815 05/09/18 0615 Imaging Last Impressions Chest X-Ray 05/07/18 0000 Signed Impressions: CONCLUSION: Slight parenchymal opacity at the right lung base with possible small effusion Abdomen/Pelvis CT 05/04/18 0000 Signed Impressions: CONCLUSION: 1. There is diffuse abnormal symmetric thickening involving the entire wall of the colon from the cecum all the way to the rectum suggestive of a nonspecific diffuse colitis. No mechanical obstruction is demonstrated. 2. Small amount of free fluid around the liver and spleen in the upper abdomen . 3. Nonspecific edema in the mesenteric fat and throughout the body wall. This suggests anasarca. 4. Scattered infiltrates in both lung bases, right greater than left. Chest CT 05/01/18 0000 Signed Impressions: CONCLUSION: 1. 1.6 cm right upper lung mass. This could be further evaluated with a PET FD G study at some point. It is amenable to biopsy if needed. 2. Thickening of the patient has portions of the colon. This is incompletely e valuated on this CT of the chest. 3. Moderate ascites seen in the upper abdomen. 4. Mild hiatal hernia. Objective Remarks GENERAL: Elderly female, laying in bed CARDIOVASCULAR: Normal rate with 3-4 out of 6 systolic murmur RESPIRATORY: Diminished breath sounds at the bases, exp wheezing noted. GASTROINTESTINAL: Abdomen soft, non-tender, nondistended. Normal active bowel sounds MUSCULOSKELETAL: Extremities without edema. NEURO: Alert & Oriented . Moves all ext x4 A/P Problem List: (1) Sepsis ICD Code: A41.9 - Sepsis, unspecified organism Status: Acute (2) Shortness of breath ICD Code: R06.02 - Shortness of breath (3) C. difficile diarrhea ICD Code: A04.72 - Enterocolitis due to Clostridium difficile, not specified as recurrent (4) Metabolic acidosis with normal anion gap and bicarbonate losses ICD Code: E87.2 - Acidosis (5) Transaminitis ICD Code: R74.0 - Nonspecific elevation of levels of transaminase and lactic acid dehydrogenase [LDH] (6) Metabolic encephalopathy ICD Code: G93.41 - Metabolic encephalopathy (7) Acute kidney injury ICD Code: N17.9 - Acute kidney failure, unspecified (8) Skin tear (9) Lung mass ICD Code: R91.8 - Other nonspecific abnormal finding of lung field Assessment and Plan (1) Sepsis Secondary to C. difficile Continue with Dificid per infectious disease recommendations. Urine cultures are negative C. difficile colitis symptoms are about the same per pt. Monitor closely. (2) Shortness of breath Improved after Lasix Likely multifactorial due to volume overload History of aortic valve stenosis and overall poor clinical status Echocardiogram shows mildly elevated PA pressures with normal systolic function, , no severe aortic stenosis SOB improved but Continues to have a cough. No other antibiotics per ID recs Chest x-ray shows slight parenchymal opacity at the right lung base w possible small effusion. Continue to Encourage use of IS q1hr while awake. on Duoneb q6hr while awake but she is still wheezing a bit. Tessalon prn. Awaiting recs from ID regarding whether abx should be considered based on x-ray results. Dr. Betancur aware. Appreciate assistance. (3) C. difficile diarrhea Repeat CT abdomen and pelvis confirmed diffuse colitis. ID following Continue with Dificid Continue Questran twice daily Monitor BMs and symptoms closely. (4) Metabolic acidosis with normal anion gap and bicarbonate losses Resolved after bicarbonate drip Secondary to sepsis (5) Transaminitis Probably secondary to sepsis. Resolved. (6) Metabolic encephalopathy Resolved after treatment of infection (7) Acute kidney injury Resolved after IV fluids (8) Skin tear Patient also with decubitus ulcer wound care nurse evaluation appreciated Continue with supportive care (9) Lung mass Continue with further evaluation Pulmonary consult appreciated, follow-up with PET scan as an outpatient. Per Dr. Coleman's note, lung bx to be done when pt more stable. Consider outpatient biopsy if hot on imaging Outpatient workup when she has recovered from her sepsis Previously discussed at length with patient Discharge Planning Cdiff somewhat improving, at least pt feeling better today, stool still not formed. However WBC still 17k. She does need follow up with Pulmonology for the lung mass. Chest x-ray is concerning for slight parenchymal opacity. Encourage aggressive pulmonary toilet. Monitor WBC's closely and BM. Avoid abx per ID if possible but awaiting ID's recs as they have been re-consulted. Kathy Barrios MD May 09, 2018 10:41
--- NOTE | 2018-05-09 13:10 | HHI.IDPN ---
Subjective Subjective Remarks ID chart reviewed 82 yo with C.diff She also c/o cough, lacks of expectoration cont to have liquid BMs, 6 over last 24 hrs persistent leukocytosis, afebrile Antibiotics Dificid Lines Peripheral IV line Past Medical History HTN Hyperlipidemia Gout Allergies: Coded Allergies: penicillin G (Unverified Allergy, Severe, SWELLING, 04/28/18) Objective . Vital Signs Date Time Temp Pulse Resp B/P (MAP) Pulse Ox O2 Delivery O2 Flow Rate FiO2 05/09/18 11:13 96.8 92 20 130/62 (84) 94 05/09/18 07:34 94 21 05/09/18 07:30 96.6 96 20 133/60 (84) 94 05/09/18 00:00 96.2 88 20 117/68 (84) 96 05/08/18 20:00 98.4 99 20 137/60 (85) 96 05/08/18 19:45 94 21 05/08/18 15:38 98.6 71 18 135/60 (85) 96 05/08/18 13:48 95 05/09/18 05/09/18 05/10/18 15:00 23:00 07:00 Intake Total 240 ml Balance 240 ml Intake Oral 240 ml # Voids 1 . Laboratory Tests Test 05/08/18 07:22 05/09/18 06:15 White Blood Count 17.2 TH/MM3 17.6 TH/MM3 Red Blood Count 3.21 MIL/MM3 3.51 MIL/MM3 Hemoglobin 10.9 GM/DL 11.4 GM/DL Hematocrit 31.1 % 34.4 % Mean Corpuscular Volume 96.8 FL 98.1 FL Mean Corpuscular Hemoglobin 34.1 PG 32.6 PG Mean Corpuscular Hemoglobin Concent 35.2 % 33.2 % Red Cell Distribution Width 17.8 % 17.2 % Platelet Count 195 TH/MM3 204 TH/MM3 Mean Platelet Volume 8.8 FL 9.1 FL Neutrophils (%) (Auto) 69.1 % Lymphocytes (%) (Auto) 24.1 % Monocytes (%) (Auto) 5.2 % Eosinophils (%) (Auto) 0.7 % Basophils (%) (Auto) 0.9 % Neutrophils # (Auto) 12.2 TH/MM3 Lymphocytes # (Auto) 4.2 TH/MM3 Monocytes # (Auto) 0.9 TH/MM3 Eosinophils # (Auto) 0.1 TH/MM3 Basophils # (Auto) 0.2 TH/MM3 CBC Comment DIFF FINAL Differential Comment Laboratory Tests Test 05/08/18 07:22 05/09/18 06:15 Blood Urea Nitrogen 11 MG/DL 11 MG/DL Creatinine 0.40 MG/DL 0.47 MG/DL Random Glucose 75 MG/DL 80 MG/DL Calcium Level 7.6 MG/DL 7.8 MG/DL Sodium Level 138 MEQ/L 139 MEQ/L Potassium Level 4.3 MEQ/L 4.4 MEQ/L Chloride Level 109 MEQ/L 109 MEQ/L Carbon Dioxide Level 22.0 MEQ/L 22.9 MEQ/L Anion Gap 7 MEQ/L 7 MEQ/L Estimat Glomerular Filtration Rate 152 ML/MIN 127 ML/MIN Magnesium Level 1.6 MG/DL Imaging Last Impressions Chest X-Ray 05/07/18 0000 Signed Impressions: CONCLUSION: Slight parenchymal opacity at the right lung base with possible small effusion Abdomen/Pelvis CT 05/04/18 0000 Signed Impressions: CONCLUSION: 1. There is diffuse abnormal symmetric thickening involving the entire wall of the colon from the cecum all the way to the rectum suggestive of a nonspecific diffuse colitis. No mechanical obstruction is demonstrated. 2. Small amount of free fluid around the liver and spleen in the upper abdomen . 3. Nonspecific edema in the mesenteric fat and throughout the body wall. This suggests anasarca. 4. Scattered infiltrates in both lung bases, right greater than left. Chest CT 05/01/18 0000 Signed Impressions: CONCLUSION: 1. 1.6 cm right upper lung mass. This could be further evaluated with a PET FD G study at some point. It is amenable to biopsy if needed. 2. Thickening of the patient has portions of the colon. This is incompletely e valuated on this CT of the chest. 3. Moderate ascites seen in the upper abdomen. 4. Mild hiatal hernia. Physical Exam GENERAL: This is a chronically ill elderly patient, in no apparent distress. SKIN: No rashes, ecchymoses or lesions. Cool and dry. HEAD: Atraumatic. Normocephalic. No temporal or scalp tenderness. EYES: Pupils equal round and reactive. Extraocular motions intact. No scleral icterus. No injection or drainage. ENT: Nose without bleeding, purulent drainage or septal hematoma. Throat without erythema, tonsillar hypertrophy or exudate. Uvula midline. Airway patent. NECK: Trachea midline. No JVD or lymphadenopathy. Supple, nontender, no meningeal signs. CARDIOVASCULAR: Regular rate and rhythm without murmurs, gallops, or rubs. RESPIRATORY: Whhezing scattreed rhonchi on the L to auscultation. Breath sounds equal bilaterally. GASTROINTESTINAL: Abdomen soft,+ mild LLQ tenderness w/o rebound, nondistended. No hepato-splenomegaly, or palpable masses. No guarding. MUSCULOSKELETAL: Legs in ankle protecting boots No edema NEUROLOGICAL: Awake and alert. Cranial nerves II through XII intact. Motor and sensory grossly within normal limits. Five out of 5 muscle strength in all muscle groups. Normal speech. Assessment & Plan Remarks Pancolitis, C.diff New RLL PNA cont dificid cont vancomycin cefepime dw Nancy Salcedo MD May 09, 2018 13:10
[2018-05-09] MEDS: CEFEPIME INJ 2,000 MG in SODIUM CHLORIDE 0.9% INJ 100 ML IV SCH ×2 (14:06→20:46)
--- NOTE | 2018-05-09 16:51 | HHI.PR ---
Subjective Remarks 82 YOWF with C.diff inf, RUL nodule Feels weak lung bx on hold has cough, occ sputum. Diarrhoea little better Objective Vital Signs Vital Signs Date Time Temp Pulse Resp B/P (MAP) Pulse Ox O2 Delivery O2 Flow Rate FiO2 05/09/18 15:02 97.2 90 20 126/58 (80) 94 05/09/18 11:13 96.8 92 20 130/62 (84) 94 05/09/18 07:34 94 21 05/09/18 07:30 96.6 96 20 133/60 (84) 94 05/09/18 00:00 96.2 88 20 117/68 (84) 96 05/08/18 20:00 98.4 99 20 137/60 (85) 96 05/08/18 19:45 94 21 I/O 05/08/18 05/08/18 05/08/18 05/09/18 05/09/18 05/09/18 06:59 14:59 22:59 06:59 14:59 22:59 Intake Total 60 ml 120 ml 240 ml Balance 60 ml 120 ml 240 ml Intake Oral 60 ml 120 ml 240 ml # Voids 2 2 1 # Bowel Movements 1 4 2 Result Diagram: 05/09/18 0615 05/09/18 0615 Objective Remarks GENERAL: Frail elderly female, NAD, weak SKIN: Warm and dry. HEAD: Normocephalic. EYES: No scleral icterus. No injection or drainage. NECK: Supple, trachea midline. No JVD or lymphadenopathy. CARDIOVASCULAR: Regular rate and rhythm without murmurs, gallops, or rubs. RESPIRATORY: Breath sounds equal bilaterally. No accessory muscle use. GASTROINTESTINAL: Abdomen soft, non-tender, nondistended. MUSCULOSKELETAL: No cyanosis, or edema. BACK: Nontender without obvious deformity. No CVA tenderness. A/P Assessment and Plan 1. A 1.6 cm right upper lobe nodule. Malignancy needs to be ruled out. 2. Leukocytosis. 3. Clostridium difficile colitis. 4. Hypertension. PLAN: PO Vancomycin Monitor CBC lung bx when more stable. Aerosol nebs Tessalon 200 mg tid Dino Coleman MD May 09, 2018 16:51
[2018-05-09] MEDS: BENZONATATE 100 MG CAP PO PRN (20:51)
[2018-05-10] MEDS: LATANOPROST 0.005% OPHT SOLN 2.5 ML BTL EACH EYE SCH ×2 (00:06→22:16)
[2018-05-10] MEDS: CALCIUM CARBONATE 1.25 GM (CA 500 MG) TAB PO SCH ×3 (00:06→22:17)
[2018-05-10] MEDS: CHOLESTYRAMINE LIGHT 4 GM PACKAGE PO SCH ×3 (00:06→22:17)
[2018-05-10] MEDS: FIDAXOMICIN 200 MG TAB PO SCH ×3 (00:06→22:16)
[2018-05-10] MEDS: guaiFENesin E.R. 600 MG TAB PO SCH ×3 (00:06→22:17)
[2018-05-10] MEDS: SODIUM CHLORIDE 0.9% FLUSH 10 ML FLUSH IV FLUSH SCH ×3 (00:07→22:16)
[2018-05-10] MEDS: HEPARIN SODIUM - SQ 10,000 UNITS/ML VIAL SQ SCH ×4 (00:07→22:18)
[2018-05-10] MEDS: CEFEPIME INJ 2,000 MG in SODIUM CHLORIDE 0.9% INJ 100 ML IV SCH ×3 (04:12→22:18)
[2018-05-10 06:47] LABS: AUTOMATED NEUTROPHIL # 11.4 TH/MM3 (1.8-7.7); BASOPHIL # 0.1 TH/MM3 (0-0.2); BASOPHIL % 0.5 % (0.0-2.0); EOSINOPHIL # 0.1 TH/MM3 (0-0.4); EOSINOPHIL % 0.4 % (0.0-4.0); HEMATOCRIT 29.3 % (35.0-46.0); HEMOGLOBIN 10.1 GM/DL (11.6-15.3); LYMPH % 22.5 % (9.0-44.0); LYMPHOCYTE # 3.5 TH/MM3 (1.0-4.8); MEAN CELL VOLUME 97.3 FL (80.0-100.0); MEAN CORPUSCULAR HEMOGLOBIN 33.5 PG (27.0-34.0); MEAN CORPUSCULAR HGB CONC 34.4 % (32.0-36.0); MEAN PLATELET VOLUME 9.9 FL (7.0-11.0); MONO % 4.2 % (0.0-8.0); MONOCYTE # 0.7 TH/MM3 (0-0.9); NEUT % 72.4 % (16.0-70.0); PLATELET COUNT 169 TH/MM3 (150-450); RED BLOOD COUNT 3.01 MIL/MM3 (4.00-5.30); RED CELL DISTRIBUTION WIDTH 18.2 % (11.6-17.2); WHITE BLOOD COUNT 15.8 TH/MM3 (4.0-11.0)
[2018-05-10 07:27] VITALS: BP 138/57; PULSE 89; RESP 20; TEMP 96.8; O2SAT 95
[2018-05-10] MEDS: RESP: ALBUTEROL 2.5 MG/IPRATROPIUM 0.5 MG NEB (SCH) NEB ×3 (07:31→19:03)
[2018-05-10 07:36] VITALS: O2SAT 95
[2018-05-10 07:47] LABS: ALBUMIN 1.4 GM/DL (3.4-5.0); CREATININE 0.4 MG/DL (0.50-1.00)
[2018-05-10 07:48] LABS: BICARBONATE 20.2 MEQ/L (21.0-32.0); CALCIUM 6.7 MG/DL (8.5-10.1); CALCIUM-PROTEIN CORRECTED 7.8 MG/DL (8.5-10.1); MAGNESIUM 1.3 MG/DL (1.5-2.5); TOTAL BILIRUBIN ADULT 0.6 MG/DL (0.2-1.0)
[2018-05-10] MEDS: METOPROLOL TARTRATE 25 MG TAB PO SCH (08:42)
[2018-05-10] MEDS: LACTOBACILLUS ACIDOPHILUS TAB PO SCH ×3 (08:42→18:15)
[2018-05-10] MEDS: FLUCONAZOLE 100 MG TAB PO SCH (08:42)
[2018-05-10] MEDS: NYSTATIN 100,000 UNIT/GM CREAM 15 GM TOPICAL SCH ×2 (08:43→22:18)
[2018-05-10 09:26] LABS: CREATININE 0.51 MG/DL (0.50-1.00)
[2018-05-10 09:27] LABS: BICARBONATE 20.7 MEQ/L (21.0-32.0); CALCIUM 7.8 MG/DL (8.5-10.1)
[2018-05-10 11:05] VITALS: BP 132/60; PULSE 86; RESP 20; TEMP 96.4; O2SAT 95
--- NOTE | 2018-05-10 13:13 | HHI.PR ---
Subjective Remarks Pt states she feels about the same. cough/sob seems to be improving however. Pt continues to have very loose stools. appetite is good Objective Vitals Vital Signs Date Time Temp Pulse Resp B/P (MAP) Pulse Ox O2 Delivery O2 Flow Rate FiO2 05/10/18 11:05 96.4 86 20 132/60 (84) 95 05/10/18 07:36 95 21 05/10/18 07:27 96.8 89 20 138/57 (84) 95 05/09/18 23:52 96.4 92 18 133/63 (86) 97 05/09/18 20:00 98.0 110 18 112/58 (76) 94 05/09/18 19:13 94 21 05/09/18 15:02 97.2 90 20 126/58 (80) 94 I/O 05/09/18 05/09/18 05/09/18 05/10/18 05/10/18 05/10/18 07:00 15:00 23:00 07:00 15:00 23:00 Intake Total 120 ml 240 ml 1200 ml 240 ml Output Total 1 ml Balance 120 ml 240 ml 1199 ml 240 ml Intake Oral 120 ml 240 ml 1200 ml 240 ml Stool Total 1 ml # Voids 2 1 7 5 # Bowel Movements 2 3 7 Result Diagram: 05/10/18 0540 05/10/18 0840 Imaging Last Impressions Chest X-Ray 05/07/18 0000 Signed Impressions: CONCLUSION: Slight parenchymal opacity at the right lung base with possible small effusion Abdomen/Pelvis CT 05/04/18 0000 Signed Impressions: CONCLUSION: 1. There is diffuse abnormal symmetric thickening involving the entire wall of the colon from the cecum all the way to the rectum suggestive of a nonspecific diffuse colitis. No mechanical obstruction is demonstrated. 2. Small amount of free fluid around the liver and spleen in the upper abdomen . 3. Nonspecific edema in the mesenteric fat and throughout the body wall. This suggests anasarca. 4. Scattered infiltrates in both lung bases, right greater than left. Chest CT 05/01/18 0000 Signed Impressions: CONCLUSION: 1. 1.6 cm right upper lung mass. This could be further evaluated with a PET FD G study at some point. It is amenable to biopsy if needed. 2. Thickening of the patient has portions of the colon. This is incompletely e valuated on this CT of the chest. 3. Moderate ascites seen in the upper abdomen. 4. Mild hiatal hernia. Objective Remarks GENERAL: Elderly female, laying in bed CARDIOVASCULAR: Normal rate with 3-4 out of 6 systolic murmur RESPIRATORY: Diminished breath sounds at the bases, exp wheezing noted. GASTROINTESTINAL: Abdomen soft, non-tender, nondistended. Normal active bowel sounds MUSCULOSKELETAL: Extremities without edema. NEURO: Alert & Oriented . Moves all ext x4 A/P Problem List: (1) Sepsis ICD Code: A41.9 - Sepsis, unspecified organism Status: Acute (2) Shortness of breath ICD Code: R06.02 - Shortness of breath (3) C. difficile diarrhea ICD Code: A04.72 - Enterocolitis due to Clostridium difficile, not specified as recurrent (4) Metabolic acidosis with normal anion gap and bicarbonate losses ICD Code: E87.2 - Acidosis (5) Transaminitis ICD Code: R74.0 - Nonspecific elevation of levels of transaminase and lactic acid dehydrogenase [LDH] (6) Metabolic encephalopathy ICD Code: G93.41 - Metabolic encephalopathy (7) Acute kidney injury ICD Code: N17.9 - Acute kidney failure, unspecified (8) Skin tear (9) Lung mass ICD Code: R91.8 - Other nonspecific abnormal finding of lung field Assessment and Plan (1) Sepsis Secondary to C. difficile Continue with Dificid per infectious disease recommendations. Urine cultures are negative C. difficile colitis symptoms are about the same per pt. Monitor closely. (2) Shortness of breath Improved after Lasix Likely multifactorial due to volume overload History of aortic valve stenosis and overall poor clinical status Echocardiogram shows mildly elevated PA pressures with normal systolic function, , no severe aortic stenosis SOB improved but Continues to have a cough. ID evaluated the patient and started her on cefepime for PNA. WBC trending down, now at 15K today. Continue to Encourage use of IS q1hr while awake. Continue Duoneb q6hr while awake but she is still wheezing a bit. Tessalon prn. (3) C. difficile diarrhea Repeat CT abdomen and pelvis confirmed diffuse colitis. ID following Continue with Dificid Continue Questran twice daily Monitor BMs and symptoms closely. BM still very loose (4) Metabolic acidosis with normal anion gap and bicarbonate losses Resolved after bicarbonate drip Secondary to sepsis (5) Transaminitis Probably secondary to sepsis. Resolved. (6) Metabolic encephalopathy Resolved after treatment of infection (7) Acute kidney injury Resolved after IV fluids (8) Skin tear Patient also with decubitus ulcer wound care nurse evaluation appreciated Continue with supportive care (9) Lung mass Continue with further evaluation Pulmonary consult appreciated, follow-up with PET scan as an outpatient. Per Dr. Coleman's note, lung bx to be done when pt more stable. Consider outpatient biopsy if hot on imaging Outpatient workup when she has recovered from her sepsis Previously discussed at length with patient Discharge Planning At least pt feeling better today, stool still very loose and pt has had 10 BM over 24 hrs. WBC trending down since being on the cefepime. She does need follow up with Pulmonology for the lung mass. Encourage aggressive pulmonary toilet. Monitor WBC's closely and BM. Appreciate recs from ID and Kathy Gonzalez MD May 10, 2018 13:13
--- NOTE | 2018-05-10 14:07 | HHI.PR ---
Subjective Remarks 82 YOWF with C.diff inf, RUL nodule Feels weak lung bx on hold has cough, occ sputum. Still has Diarrhoea No fever Objective Vital Signs Vital Signs Date Time Temp Pulse Resp B/P (MAP) Pulse Ox O2 Delivery O2 Flow Rate FiO2 05/10/18 11:05 96.4 86 20 132/60 (84) 95 05/10/18 07:36 95 21 05/10/18 07:27 96.8 89 20 138/57 (84) 95 05/09/18 23:52 96.4 92 18 133/63 (86) 97 05/09/18 20:00 98.0 110 18 112/58 (76) 94 05/09/18 19:13 94 21 05/09/18 15:02 97.2 90 20 126/58 (80) 94 I/O 05/09/18 05/09/18 05/09/18 05/10/18 05/10/18 05/10/18 07:00 15:00 23:00 07:00 15:00 23:00 Intake Total 120 ml 240 ml 1200 ml 240 ml Output Total 1 ml Balance 120 ml 240 ml 1199 ml 240 ml Intake Oral 120 ml 240 ml 1200 ml 240 ml Stool Total 1 ml # Voids 2 1 7 5 # Bowel Movements 2 3 7 Result Diagram: 05/10/18 0540 05/10/18 0840 Objective Remarks GENERAL: Frail elderly female, NAD, weak SKIN: Warm and dry. HEAD: Normocephalic. EYES: No scleral icterus. No injection or drainage. NECK: Supple, trachea midline. No JVD or lymphadenopathy. CARDIOVASCULAR: Regular rate and rhythm without murmurs, gallops, or rubs. RESPIRATORY: Breath sounds equal bilaterally. No accessory muscle use. GASTROINTESTINAL: Abdomen soft, non-tender, nondistended. MUSCULOSKELETAL: No cyanosis, or edema. BACK: Nontender without obvious deformity. No CVA tenderness. A/P Assessment and Plan 1. A 1.6 cm right upper lobe nodule. Malignancy needs to be ruled out. 2. Leukocytosis. 3. Clostridium difficile colitis. 4. Hypertension. PLAN: PO Vancomycin Monitor CBC lung bx when more stable. Aerosol nebs Tessalon 200 mg tid Dino Coleman MD May 10, 2018 14:07
[2018-05-10 15:02] VITALS: BP 130/58; PULSE 90; RESP 20; TEMP 97; O2SAT 95
[2018-05-10] MEDS: BENZONATATE 100 MG CAP PO PRN (18:15)
[2018-05-10 19:05] VITALS: O2SAT 98
[2018-05-10 20:00] VITALS: BP 96/48; PULSE 93; RESP 20; TEMP 96; O2SAT 96
[2018-05-11] VITALS (7 sets, daily range): BP systolic 110–136; BP diastolic 51–91; PULSE 87–112; RESP 20; TEMP 96.2–98.2; O2SAT 94–97
[2018-05-11] MEDS: CEFEPIME INJ 2,000 MG in SODIUM CHLORIDE 0.9% INJ 100 ML IV SCH ×3 (06:01→21:00)
[2018-05-11] MEDS: HEPARIN SODIUM - SQ 10,000 UNITS/ML VIAL SQ SCH ×3 (06:02→20:59)
[2018-05-11 06:24] LABS: AUTOMATED NEUTROPHIL # 8.9 TH/MM3 (1.8-7.7); BASOPHIL # 0.1 TH/MM3 (0-0.2); BASOPHIL % 0.7 % (0.0-2.0); EOSINOPHIL # 0.1 TH/MM3 (0-0.4); EOSINOPHIL % 0.9 % (0.0-4.0); HEMATOCRIT 30.4 % (35.0-46.0); HEMOGLOBIN 9.8 GM/DL (11.6-15.3); LYMPH % 23.4 % (9.0-44.0); MEAN CELL VOLUME 98.8 FL (80.0-100.0); MEAN CORPUSCULAR HEMOGLOBIN 31.8 PG (27.0-34.0); MEAN CORPUSCULAR HGB CONC 32.1 % (32.0-36.0); MEAN PLATELET VOLUME 9.4 FL (7.0-11.0); MONO % 6.3 % (0.0-8.0); MONOCYTE # 0.8 TH/MM3 (0-0.9); NEUT % 68.7 % (16.0-70.0); PLATELET COUNT 192 TH/MM3 (150-450); RED BLOOD COUNT 3.07 MIL/MM3 (4.00-5.30); RED CELL DISTRIBUTION WIDTH 17.2 % (11.6-17.2); WHITE BLOOD COUNT 12.9 TH/MM3 (4.0-11.0)
[2018-05-11 06:45] LABS: BICARBONATE 21.4 MEQ/L (21.0-32.0); CALCIUM 7.7 MG/DL (8.5-10.1); MAGNESIUM 1.6 MG/DL (1.5-2.5)
[2018-05-11 06:49] LABS: CREATININE 0.44 MG/DL (0.50-1.00)
[2018-05-11] MEDS: RESP: ALBUTEROL 2.5 MG/IPRATROPIUM 0.5 MG NEB (SCH) NEB ×3 (07:34→19:40)
[2018-05-11] MEDS: CHOLESTYRAMINE LIGHT 4 GM PACKAGE PO SCH ×2 (09:36→20:59)
[2018-05-11] MEDS: LACTOBACILLUS ACIDOPHILUS TAB PO SCH ×3 (09:37→17:30)
[2018-05-11] MEDS: CALCIUM CARBONATE 1.25 GM (CA 500 MG) TAB PO SCH ×2 (09:37→21:00)
[2018-05-11] MEDS: FIDAXOMICIN 200 MG TAB PO SCH ×2 (09:37→20:59)
[2018-05-11] MEDS: guaiFENesin E.R. 600 MG TAB PO SCH ×2 (09:37→21:00)
[2018-05-11] MEDS: FLUCONAZOLE 100 MG TAB PO SCH (09:37)
[2018-05-11] MEDS: METOPROLOL TARTRATE 25 MG TAB PO SCH (09:38)
[2018-05-11] MEDS: NYSTATIN 100,000 UNIT/GM CREAM 15 GM TOPICAL SCH ×2 (09:43→21:00)
[2018-05-11] MEDS: SODIUM CHLORIDE 0.9% FLUSH 10 ML FLUSH IV FLUSH SCH ×2 (09:43→21:00)
[2018-05-11] MEDS ORDERED: BENZOCAINE-MENTHOL (SUGAR FREE) 15 MG-3.6 MG LOZENGE BUCCAL PRN (11:30)
[2018-05-11] MEDS ORDERED: BENZOCAINE-MENTHOL (SUGAR FREE) 15 MG-3.6 MG LOZENGE BUCCAL ONE (11:30)
--- NOTE | 2018-05-11 11:34 | HHI.PR ---
Subjective Remarks States she feels the same. discouraged as she is still having a lot of loose stools. states her cough/sob is a bit improved but she gets bouts of coughs especially at night Objective Vitals Vital Signs Date Time Temp Pulse Resp B/P (MAP) Pulse Ox O2 Delivery O2 Flow Rate FiO2 05/11/18 07:50 97.7 112 20 120/91 (101) 94 05/11/18 07:30 95 21 05/11/18 00:00 98.2 98 20 136/89 (105) 97 05/10/18 20:00 96.0 93 20 96/48 (64) 96 05/10/18 19:05 98 21 05/10/18 15:02 97.0 90 20 130/58 (82) 95 I/O 05/10/18 05/10/18 05/10/18 05/11/18 05/11/18 05/11/18 07:00 15:00 23:00 07:00 15:00 23:00 Intake Total 240 ml 1080 ml 1240 ml Balance 240 ml 1080 ml 1240 ml Intake Oral 240 ml 1080 ml 1240 ml # Voids 5 1 5 6 # Bowel Movements 7 1 3 4 Result Diagram: 05/11/18 0525 05/11/18 0525 Imaging Last Impressions Chest X-Ray 05/07/18 0000 Signed Impressions: CONCLUSION: Slight parenchymal opacity at the right lung base with possible small effusion Abdomen/Pelvis CT 05/04/18 0000 Signed Impressions: CONCLUSION: 1. There is diffuse abnormal symmetric thickening involving the entire wall of the colon from the cecum all the way to the rectum suggestive of a nonspecific diffuse colitis. No mechanical obstruction is demonstrated. 2. Small amount of free fluid around the liver and spleen in the upper abdomen . 3. Nonspecific edema in the mesenteric fat and throughout the body wall. This suggests anasarca. 4. Scattered infiltrates in both lung bases, right greater than left. Chest CT 05/01/18 0000 Signed Impressions: CONCLUSION: 1. 1.6 cm right upper lung mass. This could be further evaluated with a PET FD G study at some point. It is amenable to biopsy if needed. 2. Thickening of the patient has portions of the colon. This is incompletely e valuated on this CT of the chest. 3. Moderate ascites seen in the upper abdomen. 4. Mild hiatal hernia. Objective Remarks GENERAL: Elderly female, laying in bed CARDIOVASCULAR: Normal rate with 3-4 out of 6 systolic murmur RESPIRATORY: Diminished breath sounds at the bases, exp wheezing noted but much improved. GASTROINTESTINAL: Abdomen soft, non-tender, nondistended. Normal active bowel sounds MUSCULOSKELETAL: Extremities without edema. NEURO: Alert & Oriented . Moves all ext x4 A/P Problem List: (1) Sepsis ICD Code: A41.9 - Sepsis, unspecified organism Status: Acute (2) Shortness of breath ICD Code: R06.02 - Shortness of breath (3) C. difficile diarrhea ICD Code: A04.72 - Enterocolitis due to Clostridium difficile, not specified as recurrent (4) Metabolic acidosis with normal anion gap and bicarbonate losses ICD Code: E87.2 - Acidosis (5) Transaminitis ICD Code: R74.0 - Nonspecific elevation of levels of transaminase and lactic acid dehydrogenase [LDH] (6) Metabolic encephalopathy ICD Code: G93.41 - Metabolic encephalopathy (7) Acute kidney injury ICD Code: N17.9 - Acute kidney failure, unspecified (8) Skin tear (9) Lung mass ICD Code: R91.8 - Other nonspecific abnormal finding of lung field Assessment and Plan (1) Sepsis Secondary to C. difficile Continue with Dificid per infectious disease recommendations. Urine cultures are negative C. difficile colitis symptoms not improving per pt at this time. (2) Shortness of breath/PNA Improved after Lasix Likely multifactorial due to volume overload History of aortic valve stenosis and overall poor clinical status Echocardiogram shows mildly elevated PA pressures with normal systolic function, , no severe aortic stenosis SOB improved but Continues to have a cough. ID evaluated the patient and she is on cefepime for PNA. WBC trending down, now at 12.9K today. Continue to Encourage use of IS q1hr while awake. Continue Duoneb q6hr while awake but she is still wheezing a bit. Tessalon prn. added cough drops. (3) C. difficile diarrhea Repeat CT abdomen and pelvis confirmed diffuse colitis. ID following Continue with Dificid Continue Questran twice daily Monitor BMs and symptoms closely. BM still very loose and pt having multiple episodes. Unfortunately pt is being treated for PNA as well. (4) Metabolic acidosis with normal anion gap and bicarbonate losses Resolved after bicarbonate drip Secondary to sepsis (5) Transaminitis Probably secondary to sepsis. Resolved. (6) Metabolic encephalopathy Resolved after treatment of infection (7) Acute kidney injury Resolved after IV fluids (8) Skin tear Patient also with decubitus ulcer wound care nurse evaluation appreciated Continue with supportive care (9) Lung mass Continue with further evaluation Pulmonary consult appreciated, follow-up with PET scan as an outpatient. Per Dr. Coleman's note, lung bx to be done when pt more stable. Consider outpatient biopsy if hot on imaging Outpatient workup when she has recovered from her sepsis Previously discussed at length with patient Discharge Planning At least pt feeling better today, stool still very loose and pt has had 10 BM over 24 hrs. WBC trending down since being on the cefepime. She does need follow up with Pulmonology for the lung mass. Encourage aggressive pulmonary toilet. Monitor WBC's closely and BM. Appreciate recs from ID and Kathy Gonzalez MD May 11, 2018 11:34
[2018-05-11] MEDS: BENZONATATE 100 MG CAP PO PRN (16:16)
[2018-05-11] MEDS: ONDANSETRON HCL 4 MG/2 ML VIAL IVP PRN (16:16)
[2018-05-11] MEDS: LATANOPROST 0.005% OPHT SOLN 2.5 ML BTL EACH EYE SCH (21:00)
[2018-05-12] VITALS: BP 106/53; PULSE 98; RESP 20; TEMP 97; O2SAT 97
[2018-05-12] MEDS: CEFEPIME INJ 2,000 MG in SODIUM CHLORIDE 0.9% INJ 100 ML IV SCH ×3 (05:30→22:20)
[2018-05-12] MEDS: HEPARIN SODIUM - SQ 10,000 UNITS/ML VIAL SQ SCH ×3 (06:00→22:20)
[2018-05-12 06:30] LABS: AUTOMATED NEUTROPHIL # 7.7 TH/MM3 (1.8-7.7); BASOPHIL # 0.1 TH/MM3 (0-0.2); BASOPHIL % 1.2 % (0.0-2.0); EOSINOPHIL # 0.1 TH/MM3 (0-0.4); EOSINOPHIL % 1.1 % (0.0-4.0); HEMATOCRIT 29.6 % (35.0-46.0); HEMOGLOBIN 9.9 GM/DL (11.6-15.3); LYMPH % 25.2 % (9.0-44.0); LYMPHOCYTE # 2.9 TH/MM3 (1.0-4.8); MEAN CELL VOLUME 98.4 FL (80.0-100.0); MEAN CORPUSCULAR HGB CONC 33.5 % (32.0-36.0); MEAN PLATELET VOLUME 8.9 FL (7.0-11.0); MONO % 6.5 % (0.0-8.0); MONOCYTE # 0.7 TH/MM3 (0-0.9); PLATELET COUNT 200 TH/MM3 (150-450); RED BLOOD COUNT 3.01 MIL/MM3 (4.00-5.30); RED CELL DISTRIBUTION WIDTH 17.1 % (11.6-17.2); WHITE BLOOD COUNT 11.5 TH/MM3 (4.0-11.0)
[2018-05-12 06:38] LABS: CALCIUM 7.6 MG/DL (8.5-10.1)
[2018-05-12 06:42] LABS: CREATININE 0.47 MG/DL (0.50-1.00)
[2018-05-12] MEDS: RESP: ALBUTEROL 2.5 MG/IPRATROPIUM 0.5 MG NEB (SCH) NEB (07:22)
[2018-05-12 07:24] VITALS: O2SAT 100
[2018-05-12 08:00] VITALS: BP 107/51; PULSE 101; RESP 18; TEMP 97.1; O2SAT 96
[2018-05-12] MEDS: FIDAXOMICIN 200 MG TAB PO SCH ×2 (09:08→22:20)
[2018-05-12] MEDS: SODIUM CHLORIDE 0.9% FLUSH 10 ML FLUSH IV FLUSH SCH ×2 (09:08→21:00)
[2018-05-12] MEDS: guaiFENesin E.R. 600 MG TAB PO SCH (09:08)
[2018-05-12] MEDS: METOPROLOL TARTRATE 25 MG TAB PO SCH (09:08)
[2018-05-12] MEDS: FLUCONAZOLE 100 MG TAB PO SCH (09:08)
[2018-05-12] MEDS: CALCIUM CARBONATE 1.25 GM (CA 500 MG) TAB PO SCH ×2 (09:08→22:20)
[2018-05-12] MEDS: LACTOBACILLUS ACIDOPHILUS TAB PO SCH ×3 (09:08→17:36)
[2018-05-12] MEDS: NYSTATIN 100,000 UNIT/GM CREAM 15 GM TOPICAL SCH ×2 (09:09→21:00)
[2018-05-12] MEDS: CHOLESTYRAMINE LIGHT 4 GM PACKAGE PO SCH ×3 (09:09→18:42)
--- NOTE | 2018-05-12 10:55 | HHI.PR ---
Subjective Remarks Patient seen and evaluated in follow-up for C. difficile colitis which has been quite severe requiring prolonged hospitalization due to persistent diarrhea. Patient also being treated for pneumonia. She is tolerating her Dificid and vancomycin orally Cefepime prescribed for her pneumonia. Patient has reported persistent diarrhea. Bili pain is better. She is off oxygen. Her leukocytosis is improved since my last evaluation and the patient has been out of bed for the last 24 hours to the chair and ambulatory with physical therapy Objective Vitals Vital Signs Date Time Temp Pulse Resp B/P (MAP) Pulse Ox O2 Delivery O2 Flow Rate FiO2 05/12/18 08:00 97.1 101 18 107/51 (69) 96 05/12/18 07:24 100 21 05/12/18 00:00 97.0 98 20 106/53 (70) 97 05/11/18 20:00 97.0 108 20 110/51 (70) 94 05/11/18 19:40 97 21 05/11/18 15:50 96.7 92 20 135/59 (84) 96 05/11/18 11:30 96.2 87 20 114/58 (76) 96 I/O 05/11/18 05/11/18 05/11/18 05/12/18 05/12/18 05/12/18 07:00 15:00 23:00 07:00 15:00 23:00 Intake Total 1240 ml 100 ml 720 ml Output Total 4 ml Balance 1240 ml 100 ml 716 ml Intake Oral 1240 ml 720 ml IV Total 100 ml Output Urine Total 4 ml # Voids 6 2 5 # Bowel Movements 4 13 6 Result Diagram: 05/12/18 0545 05/12/18 0545 Imaging Last Impressions Chest X-Ray 05/07/18 0000 Signed Impressions: CONCLUSION: Slight parenchymal opacity at the right lung base with possible small effusion Abdomen/Pelvis CT 05/04/18 0000 Signed Impressions: CONCLUSION: 1. There is diffuse abnormal symmetric thickening involving the entire wall of the colon from the cecum all the way to the rectum suggestive of a nonspecific diffuse colitis. No mechanical obstruction is demonstrated. 2. Small amount of free fluid around the liver and spleen in the upper abdomen . 3. Nonspecific edema in the mesenteric fat and throughout the body wall. This suggests anasarca. 4. Scattered infiltrates in both lung bases, right greater than left. Chest CT 05/01/18 0000 Signed Impressions: CONCLUSION: 1. 1.6 cm right upper lung mass. This could be further evaluated with a PET FD G study at some point. It is amenable to biopsy if needed. 2. Thickening of the patient has portions of the colon. This is incompletely e valuated on this CT of the chest. 3. Moderate ascites seen in the upper abdomen. 4. Mild hiatal hernia. Objective Remarks Skin with multiple skin tears and bruises in various stages of healing GENERAL: This is a well-nourished, well-developed patient, in no apparent distress. CARDIOVASCULAR: Regular rate and rhythm with systolic murmur RESPIRATORY: Decreased breath sounds bilaterally due to poor effort, increased work of breathing with accessory muscle use GASTROINTESTINAL: Abdomen soft, non-tender, nondistended. Normal active bowel sounds MUSCULOSKELETAL: Extremities without clubbing, cyanosis, or edema. NEURO: Alert & Oriented x4 to person, place, time, situation. Moves all ext x4 A/P Problem List: (1) Sepsis ICD Code: A41.9 - Sepsis, unspecified organism Status: Acute Plan: Secondary to C. difficile colitis Continue with Dificid, p.o. vancomycin per infectious disease recommendations. Urine cultures are negative leukocytosis and tachycardia are improved Questran 3 times daily GI consult pending (2) Lung mass ICD Code: R91.8 - Other nonspecific abnormal finding of lung field Plan: Continue with further evaluation Pulmonary consult appreciated, follow-up with PET scan as an outpatient Consider outpatient biopsy if hot on imaging Outpatient workup when she has recovered from her sepsis Discharge Planning heparin q8h Likely for [facility] facility at discharge Vida Vega MD May 12, 2018 10:55
[2018-05-12 12:00] VITALS: BP 110/60; PULSE 100; RESP 18; TEMP 97.8; O2SAT 97
[2018-05-12 16:00] VITALS: BP 115/60; PULSE 98; RESP 18; TEMP 98; O2SAT 95
[2018-05-12 20:00] VITALS: BP 118/56; PULSE 100; RESP 20; TEMP 99; O2SAT 97
--- NOTE | 2018-05-12 20:14 | HHI.PR ---
Subjective Remarks 82 YOWF with C.diff inf, RUL nodule Feels weak lung bx on hold has cough, occ sputum. No fever Objective Vital Signs Vital Signs Date Time Temp Pulse Resp B/P (MAP) Pulse Ox O2 Delivery O2 Flow Rate FiO2 05/12/18 16:00 98.0 98 18 115/60 (78) 95 05/12/18 12:00 97.8 100 18 110/60 (77) 97 05/12/18 08:00 97.1 101 18 107/51 (69) 96 05/12/18 07:24 100 21 05/12/18 00:00 97.0 98 20 106/53 (70) 97 I/O 05/11/18 05/11/18 05/11/18 05/12/18 05/12/18 05/12/18 07:00 15:00 23:00 07:00 15:00 23:00 Intake Total 1240 ml 100 ml 720 ml 480 ml Output Total 4 ml 1 ml Balance 1240 ml 100 ml 716 ml 479 ml Intake Oral 1240 ml 720 ml 480 ml IV Total 100 ml Output Urine Total 4 ml Stool Total 1 ml # Voids 6 2 5 1 3 # Bowel Movements 4 13 6 1 Result Diagram: 05/12/18 0545 05/12/18 0545 Objective Remarks GENERAL: Frail elderly female, NAD, weak SKIN: Warm and dry. HEAD: Normocephalic. EYES: No scleral icterus. No injection or drainage. NECK: Supple, trachea midline. No JVD or lymphadenopathy. CARDIOVASCULAR: Regular rate and rhythm without murmurs, gallops, or rubs. RESPIRATORY: Breath sounds equal bilaterally. No accessory muscle use. GASTROINTESTINAL: Abdomen soft, non-tender, nondistended. MUSCULOSKELETAL: No cyanosis, or edema. BACK: Nontender without obvious deformity. No CVA tenderness. A/P Assessment and Plan 1. A 1.6 cm right upper lobe nodule. Malignancy needs to be ruled out. 2. Leukocytosis. 3. Clostridium difficile colitis. 4. Hypertension. PLAN: PO Vancomycin Monitor CBC lung bx when more stable. Aerosol nebs Tessalon 200 mg tid Stable from Pulm standpoint Dino Coleman MD May 12, 2018 20:13
--- NOTE | 2018-05-12 20:37 | MB ---
cc: Sunni Palomares MD, Ammar MD DATE: 05/12/2018 REFERRING PHYSICIAN: Dr. Vega HISTORY OF PRESENT ILLNESS: This is a pleasant 82-year-old lady who has history of hip fracture with surgery. In January, the patient went to rehab. She had difficile after the surgery. She went and got treatment. The patient came back with pneumonia and another episode of difficile. She has been treated for it, currently on Dificid and vancomycin. She is still having significant diarrhea, according to her and to the staff, every 2 hours. The patient had significant elevation of the white count on admission, seems to be improving, but still with significant diarrhea and that was the reason for the consultation. The patient denied any abdominal pain. She has some cramping. No blood in the stool. PAST MEDICAL HISTORY: Significant for hypercholesterolemia, hypertension, recent hip surgery. MEDICATIONS: Reviewed in the chart. ALLERGIES: PENICILLIN. SOCIAL HISTORY: No tobacco, drug or alcohol. FAMILY HISTORY: Noncontributory. REVIEW OF SYSTEMS: All 12-point negative except HPI. PHYSICAL EXAMINATION: GENERAL: Alert, oriented, in no acute distress. VITAL SIGNS: Stable. GENERAL: No fever at this time, slightly tachycardic. SKIN: clear. CARDIAC: Regular rate and rhythm. No murmur or gallops. HEENT: Pupils are round, reactive to light. NECK: Supple. CHEST: Decreased bilateral breathing sounds. No wheezing. ABDOMEN: Soft, nondistended, nontender. Positive bowel sounds. EXTREMITIES: No edema, clubbing or cyanosis. NEUROLOGIC: Intact. No abnormality or focal deficits: PSYCHIATRIC: Psychologically appropriate. LABORATORY DATA: White count 11.5, at some point, it was 34, hemoglobin 9.9, platelets 200. INR 1.1. C. Diff on 04/29 was positive. Hepatitis was negative. Chemistry: Normal liver function tests, albumin 1.4. ASSESSMENT AND PLAN: An 82-year-old lady with diarrhea. Clostridium difficile positive. The patient also has pneumonia. She is on ceftriaxone and she is on Dificid. This was started 8 days ago. She is on fluconazole, also on vancomycin, according to the chart, but I did not see the vancomycin on the patient list at this time. Most likely, the diarrhea is related to Clostridium difficile. Other etiology is possible, but unlikely. I discussed the case with Dr. Betancur, the Infectious Disease physician. I think the patient is on appropriate treatment. I think we need to continue with that diet and, if she continues to have the diarrhea, we might need to do a flexible sigmoidoscopy to rule out other etiology and also possibly do stool studies to rule out other type of infection. The patient understood the plan. We will follow up with you. MD WARD Mosqueda/ , 08:14 PM , 08:36 PM
[2018-05-12] MEDS: LATANOPROST 0.005% OPHT SOLN 2.5 ML BTL EACH EYE SCH (21:00)
[2018-05-13] VITALS: BP 112/56; PULSE 97; RESP 20; TEMP 96.7; O2SAT 95
[2018-05-13] MEDS: CEFEPIME INJ 2,000 MG in SODIUM CHLORIDE 0.9% INJ 100 ML IV SCH ×3 (05:49→21:32)
[2018-05-13] MEDS: BENZONATATE 100 MG CAP PO PRN ×3 (05:51→22:17)
[2018-05-13] MEDS: HEPARIN SODIUM - SQ 10,000 UNITS/ML VIAL SQ SCH ×3 (05:52→21:32)
[2018-05-13 07:52] VITALS: BP 110/62; PULSE 91; RESP 21; TEMP 97.3; O2SAT 95
[2018-05-13] MEDS: CHOLESTYRAMINE LIGHT 4 GM PACKAGE PO SCH ×3 (09:04→18:32)
[2018-05-13] MEDS: SODIUM CHLORIDE 0.9% FLUSH 10 ML FLUSH IV FLUSH SCH ×2 (09:06→21:29)
[2018-05-13] MEDS: NYSTATIN 100,000 UNIT/GM CREAM 15 GM TOPICAL SCH ×2 (09:06→21:32)
[2018-05-13] MEDS: METOPROLOL TARTRATE 25 MG TAB PO SCH (10:03)
[2018-05-13] MEDS: LACTOBACILLUS ACIDOPHILUS TAB PO SCH ×3 (10:03→17:47)
[2018-05-13] MEDS: CALCIUM CARBONATE 1.25 GM (CA 500 MG) TAB PO SCH ×2 (10:03→21:31)
[2018-05-13] MEDS: FLUCONAZOLE 100 MG TAB PO SCH (10:03)
[2018-05-13] MEDS: FIDAXOMICIN 200 MG TAB PO SCH ×2 (10:03→21:31)
--- NOTE | 2018-05-13 10:58 | HHI.PR ---
Subjective Remarks She seen and evaluated in follow-up for sepsis secondary to C. difficile colitis. Overall improved. GI consult appreciated. Patient says she thinks she feels a bit better. Objective Vitals Vital Signs Date Time Temp Pulse Resp B/P (MAP) Pulse Ox O2 Delivery O2 Flow Rate FiO2 05/13/18 07:52 97.3 91 21 110/62 (78) 95 05/13/18 00:00 96.7 97 20 112/56 (74) 95 05/12/18 20:00 99.0 100 20 118/56 (76) 97 05/12/18 16:00 98.0 98 18 115/60 (78) 95 05/12/18 12:00 97.8 100 18 110/60 (77) 97 I/O 05/12/18 05/12/18 05/12/18 05/13/18 05/13/18 05/13/18 07:00 15:00 23:00 07:00 15:00 23:00 Intake Total 480 ml 240 ml 240 ml Output Total 1 ml Balance 479 ml 240 ml 240 ml Intake Oral 480 ml 240 ml 240 ml Stool Total 1 ml # Voids 5 1 3 5 # Bowel Movements 6 1 6 Result Diagram: 05/12/18 0545 05/12/18 0545 Objective Remarks Skin with multiple skin tears and bruises in various stages of healing GENERAL: This is a well-nourished, well-developed patient, in no apparent distress. CARDIOVASCULAR: Regular rate and rhythm with systolic murmur RESPIRATORY: Decreased breath sounds bilaterally due to poor effort, increased work of breathing with accessory muscle use GASTROINTESTINAL: Abdomen soft, non-tender, nondistended. Normal active bowel sounds MUSCULOSKELETAL: Extremities without clubbing, cyanosis, or edema. NEURO: Alert & Oriented x4 to person, place, time, situation. Moves all ext x4 A/P Problem List: (1) Sepsis ICD Code: A41.9 - Sepsis, unspecified organism Status: Acute Plan: Secondary to C. difficile colitis Continue with Dificid, p.o. vancomycin per infectious disease recommendations. Urine cultures are negative leukocytosis and tachycardia are improved Questran 3 times daily GI consult appreciated (2) Lung mass ICD Code: R91.8 - Other nonspecific abnormal finding of lung field Plan: Continue with further evaluation Pulmonary consult appreciated, follow-up with PET scan as an outpatient Consider outpatient biopsy if hot on imaging Outpatient workup when she has recovered from her sepsis Discharge Planning heparin q8h Likely for assisted facility at discharge Vida Vega MD May 13, 2018 10:58
[2018-05-13] MEDS ORDERED: TEMAZEPAM 15 MG CAP PO PRN (11:00)
[2018-05-13 12:00] VITALS: BP 121/56; PULSE 97; RESP 19; TEMP 97.6; O2SAT 97
[2018-05-13 16:00] VITALS: BP 118/55; PULSE 86; RESP 21; TEMP 98.2; O2SAT 96
--- NOTE | 2018-05-13 19:03 | HHI.GIFU ---
Subjective Remarks Patient laying in bed comfortably, no abdominal pain, according to the nursing staff and the hospitalist PAULA seems to have less diarrhea overall she had a good day Objective Vitals I&O Vital Signs Date Time Temp Pulse Resp B/P (MAP) Pulse Ox O2 Delivery O2 Flow Rate FiO2 05/13/18 16:00 98.2 86 21 118/55 (76) 96 05/13/18 12:00 97.6 97 19 121/56 (77) 97 05/13/18 07:52 97.3 91 21 110/62 (78) 95 05/13/18 00:00 96.7 97 20 112/56 (74) 95 05/12/18 20:00 99.0 100 20 118/56 (76) 97 I/O 05/12/18 05/12/18 05/12/18 05/13/18 05/13/18 05/13/18 07:00 15:00 23:00 07:00 15:00 23:00 Intake Total 100 ml 480 ml 340 ml 240 ml 1000 ml Output Total 1 ml 1000 ml Balance 100 ml 479 ml 340 ml 240 ml 0 ml Intake Oral 480 ml 240 ml 240 ml 900 ml IV Total 100 ml 100 ml 100 ml Output Urine Total 1000 ml Stool Total 1 ml # Voids 5 1 3 5 # Bowel Movements 6 1 6 4 Laboratory Date/Time Source Procedure Growth Status 05/04/18 10:35 Blood Peripheral Aerobic Blood Culture - Final NO GROWTH IN 5 DAYS Complete 05/04/18 10:35 Blood Peripheral Anaerobic Blood Culture - Final NO GROWTH IN 5 DAYS Complete 04/29/18 04:48 Stool Stool - Final NO ENTERIC PATHOGENS DETECTED BY PCR... Complete 04/28/18 21:30 Urine Clean Catch Urine Culture - Final 50-100,000 CFU/ML MIXED LESLY... Complete Physical Exam HEENT: Pupils round and reactive to light; normocephalic; atraumatic; no jaundice. Throat is clear. NECK: Neck is supple, no JVD, no lymphadenopathy. CHEST: Chest is clear to auscultation and percussion. CARDIAC: Regular rate and rhythm with no murmur gallop or rubs. ABDOMEN: Soft, nondistended, nontender; no hepatosplenomegaly; bowel sounds are present in all four quadrants. EXTREMITIES: No clubbing, cyanosis, or edema. SKIN: Normal; no rash; no jaundice. WHITE SUGAR BOILER: No focal deficits; alert and oriented times three. Assessment and Plan Plan Patient is 82-year-old lady with recurrent C. difficile second episode patient still having diarrhea but improved since she was admitted over the last 24 hours , she is on Dificid, she has been followed by ID also, no further recommendation from GI at this time I do not think there is any other etiology for the diarrhea besides C. difficile so continue the medication, if diarrhea persist then we would consider doing a flexible sigmoidoscopy or colonoscopy we will follow-up as needed thank you Sunni Palomares MD May 13, 2018 19:02
[2018-05-13 20:00] VITALS: BP 114/57; PULSE 79; RESP 20; TEMP 96.7; O2SAT 97
[2018-05-13] MEDS: LATANOPROST 0.005% OPHT SOLN 2.5 ML BTL EACH EYE SCH (21:30)
[2018-05-14] VITALS: BP 125/65; PULSE 92; RESP 20; TEMP 96.7; O2SAT 96
[2018-05-14] MEDS: CEFEPIME INJ 2,000 MG in SODIUM CHLORIDE 0.9% INJ 100 ML IV SCH ×2 (05:38→13:45)
[2018-05-14] MEDS: HEPARIN SODIUM - SQ 10,000 UNITS/ML VIAL SQ SCH ×2 (05:38→13:45)
[2018-05-14 08:48] VITALS: BP 143/70; PULSE 86; RESP 16; TEMP 96.2; O2SAT 97
[2018-05-14] MEDS: METOPROLOL TARTRATE 25 MG TAB PO SCH (08:54)
[2018-05-14] MEDS: FIDAXOMICIN 200 MG TAB PO SCH (08:54)
[2018-05-14] MEDS: FLUCONAZOLE 100 MG TAB PO SCH (08:54)
[2018-05-14] MEDS: CALCIUM CARBONATE 1.25 GM (CA 500 MG) TAB PO SCH (08:54)
[2018-05-14] MEDS: LACTOBACILLUS ACIDOPHILUS TAB PO SCH ×2 (08:54→13:45)
[2018-05-14] MEDS: CHOLESTYRAMINE LIGHT 4 GM PACKAGE PO SCH ×2 (08:54→13:45)
[2018-05-14] MEDS: SODIUM CHLORIDE 0.9% FLUSH 10 ML FLUSH IV FLUSH SCH (08:55)
[2018-05-14] MEDS: NYSTATIN 100,000 UNIT/GM CREAM 15 GM TOPICAL SCH (08:55)
[2018-05-14] MEDS ORDERED: TRAM50TA PO (11:38)
[2018-05-14] MEDS ORDERED: CHOL4POW2 PO (11:38)
[2018-05-14] MEDS ORDERED: REST15CA PO (11:38)
[2018-05-14] MEDS ORDERED: BENZ100 PO (11:38)
[2018-05-14] MEDS ORDERED: DIFL100T PO (11:38)
[2018-05-14] MEDS ORDERED: LACT PO (11:38)
[2018-05-14] MEDS ORDERED: Albuterol-Ipratropium Neb NEB (11:38)
[2018-05-14] MEDS ORDERED: CALC500 PO (11:38)
--- NOTE | 2018-05-14 11:39 | HHI.DCPOC ---
Discharge Care Plan Diagnosis: (1) Lung mass (2) Sepsis (3) C. difficile diarrhea Goals to Promote Your Health * To prevent worsening of your condition and complications * To maintain your health at the optimal level Directions to Meet Your Goals Take your medications as prescribed Follow your dietary instruction Follow activity as directed Keep your appointments as scheduled Take your immunizations and boosters as scheduled If your symptoms worsen call your PCP, if no PCP go to Urgent Care Center or Emergency Room Smoking is Dangerous to Your Health. Avoid second hand smoke Call the 24-hour hour crisis hotline for domestic abuse at Vida Vega MD May 14, 2018 11:39
--- NOTE | 2018-05-14 11:42 | HHI.DS ---
Discharge Summary Admission Date April 28, 2018 at 18:15 Discharge Date: May 14, 2018 Admitting Diagnosis ENTERITIS, DEHYDRATION (1) Sepsis ICD Code: A41.9 - Sepsis, unspecified organism Status: Acute (2) Lung mass ICD Code: R91.8 - Other nonspecific abnormal finding of lung field Procedures None Brief History - From Admission 82-year-old female for past medical history of hyperlipidemia, and a hip surgery February 03, 2018 also has been treated in the past for C. difficile was brought in by family member for evaluation of multiple episode of diarrhea as an increased weakness. Apparently, patient was found by family member in feces on the floor, however patient denied his events. She states over the past few weeks she has been quite weak and has had multiple episode of diarrhea since her hip surgery however denies any nausea or vomiting. She reported abdominal cramping and pain. She has no GI bleed. She denies any shortness of breath. CBC/BMP: 05/12/18 0545 05/12/18 0545 Significant Findings Laboratory Tests Test 05/12/18 05:45 White Blood Count 11.5 TH/MM3 (4.0-11.0) Red Blood Count 3.01 MIL/MM3 (4.00-5.30) Hemoglobin 9.9 GM/DL (11.6-15.3) Hematocrit 29.6 % (35.0-46.0) Creatinine 0.47 MG/DL (0.50-1.00) Random Glucose 72 MG/DL (74-106) Calcium Level 7.6 MG/DL (8.5-10.1) Chloride Level 110 MEQ/L (98-107) PE at Discharge Skin with multiple skin tears and bruises in various stages of healing GENERAL: This is a well-nourished, well-developed patient, in no apparent distress. CARDIOVASCULAR: Regular rate and rhythm with systolic murmur RESPIRATORY: Decreased breath sounds bilaterally due to poor effort, increased work of breathing with accessory muscle use GASTROINTESTINAL: Abdomen soft, non-tender, nondistended. Normal active bowel sounds MUSCULOSKELETAL: Extremities without clubbing, cyanosis, or edema. NEURO: Alert & Oriented x4 to person, place, time, situation. Moves all ext x4 Pt update on day of discharge Patient seen and evaluated today. Feels better. Diarrhea is improved. Discharge plans discussed with patient Hospital Course Patient is an 82-year-old female was seen and treated for acute encephalopathy secondary to sepsis due to C. difficile colitis. Patient initially was started on oral vancomycin but continued to do poorly and was seen by ID. Dificid was prescribed and the patient appeared to improve. Her diarrhea improved. Patient also was found to have pneumonia. This was treated with antibiotics. Patient did have lung nodule which was found on imaging and outpatient PET scanning was recommended. Pt Condition on Discharge: Good Discharge Disposition: Discharge to SNF Discharge Time: <= 30 minutes Discharge Instructions DIET: Follow Instructions for: As Tolerated, No Restrictions Activities you can perform: Regular-No Restrictions Follow up Referrals: PCP Follow-up - 2 Weeks New Medications: Benzonatate (Tessalon Perles) 100 Mg Cap 200 MG PO TID PRN for COUGH, #20 CAP Cholestyramine Light (Cholestyramine Light) 4 Gm/Pkt Powd 4 GM PO TID for Diarrhea, #30 PACKET 1 pouch of powder contains 4 grams of cholestyramine. Fluconazole (Diflucan) 100 Mg Tab 100 MG PO DAILY for Infection for 10 Days, #10 TAB Lactobacillus Acidophilus (Acidophilus/l-Sporogenes) 35 Million Cell-25 Million Cell Tab 1 TAB PO TID for gi, #93 TAB Oyster Shell (Oyster Calcium) 500 Mg Calcium (1250 Mg) Tab 500 MG PO Q12HR for gi, #62 TAB Temazepam (Restoril) 15 Mg Cap 15 MG PO HS PRN for sleep, #14 CAP [Albuterol-Ipratropium Neb] () 1 AMPULE NEBU 1 AMPULE NEB Q2HR NEB PRN for SOB/WHEEZING, #90 Continued Medications: Aspirin DR (Aspir-81) 81 Mg Tabdr 1 TAB PO DAILY Brimonidine Opth Drops (Alphagan P Opth Drops) 0.15% Soln 1 DROP EACH EYE TID for Intraocular pressure, #1 BOTTLE 0 Refills Febuxostat (Uloric) 40 Mg Tab 1 MG PO DAILY Latanoprost Opth Drops (Latanoprost Opth Drops) 0.005% Drops 1 DROP EACH EYE BID for Glaucoma, #2.5 ML 0 Refills Refrigerate until opened. Metoprolol Tartrate (Metoprolol Tartrate) 25 Mg Tab 25 MG PO DAILY, #60 TAB 0 Refills Tramadol (Tramadol) 50 Mg Tab 50 MG PO Q12H PRN for PAIN, #31 TAB 0 Refills (This prescription has been renewed) Discontinued Medications: Simvastatin (Simvastatin) 40 Mg Tab 40 MG PO HS for Cholesterol Management, #30 TAB 0 Refills Triamterene-Hydrochlorothiazide (Triamterene-Hydrochlorothiazide) 37.5-25 Mg Tab 1 TAB PO DAILY, #30 TAB 0 Refills Vida Vega MD May 14, 2018 11:42
[2018-05-14 13:26] VITALS: BP 124/61; PULSE 85; RESP 18; TEMP 97.1; O2SAT 94
== END 2018-05-14 14:59 | DRG 871 ==
LOC: PHED 14:06 → PHEDA 18:15 → PH3A 19:55 → PH3B 05-10 16:48
PROVIDERS: ADMIT Hospitalist; ATTEND Hospitalist
DX: A41.9 Sepsis, unspecified organism (principal); G93.41 Metabolic encephalopathy; N17.9 Acute kidney failure, unspecified; A04.71 Enterocolitis due to Clostridium difficile, recurrent; J18.9 Pneumonia, unspecified organism; E87.2 Acidosis; N18.3 Chronic kidney disease, stage 3 (moderate); B37.2 Candidiasis of skin and nail; N39.0 Urinary tract infection, site not specified; L89.90 Pressure ulcer of unspecified site, unspecified stage; E87.6 Hypokalemia; R91.1 Solitary pulmonary nodule; E78.00 Pure hypercholesterolemia, unspecified; R74.0 Nonspecific elevation of levels of transaminase and lactic acid dehydrogenase [LDH]; I12.9 Hypertensive chronic kidney disease with stage 1 through stage 4 chronic kidney disease, or unspecified chronic kidney disease; E78.5 Hyperlipidemia, unspecified; Z96.649 Presence of unspecified artificial hip joint; Z88.0 Allergy status to penicillin
CPT/HCPCS: 71045; 71250; 74176; 76937; 80048; 80053; 80074; 80076; 81001; 82550; 82948; 83735; 83880; 84155; 85007; 85025; 85027; 85610; 85730; 87040; 87086; 87493; 87506; 93306; 94150; 94640; 94664; 96361; 96374; J0692; J0696; J1644; J1940; J2405; J2543; J7030; J7040; Q9963